=== PATIENT | female | born 1955 | race Caucasian/White ===

== ENCOUNTER 2020-08-17 10:14 | Outpatient (REF) | payer OTHER, SELFPAY ==
--- NOTE | ~2020-08-17 | MM_ITS ---
EXAMINATION: MM SCREENING DIGITAL BREAST TOMOSYNTHESIS, BILATERAL CLINICAL INFORMATION: Screening. Asymptomatic. The lifetime risk of breast cancer based on the Tyrer-Cuzick Model is 8%. COMPARISON: Outside mammography: 03/14/2017 ([facility] TECHNIQUE: Digital breast tomosynthesis is performed in both the craniocaudal and mediolateral oblique views along with computer-aided detection (CAD). Synthesized 2D images are generated from the tomosynthesis. Additional left MLO view is provided. FINDINGS: There are scattered areas of fibroglandular density (ACR BI-RADS breast composition Category b). There are no significant masses, abnormal calcifications, or other abnormalities. There is a clip marker mid upper outer quadrant left breast. The parenchymal pattern is similar to prior outside exam. The axilla and skin contours are unremarkable. No significant changes. MM/MM tomosynthesis screening BI IMPRESSION: No mammographic evidence of malignancy. ASSESSMENT: BI-RADS 1: Negative RECOMMENDATION: Routine annual mammography screening. This patient's information was entered into a reminder system with a target due date for their next mammogram.
== END 2020-08-17 10:15 | disposition home or self-care (01) ==
LOC: HO.MAMMO 10:14
PROVIDERS: PCP Internal Medicine; Visit Provider Internal Medicine
DX: Z12.31 Encounter for screening mammogram for malignant neoplasm of breast (principal)
CPT/HCPCS: 77063; 77067

== ENCOUNTER 2020-12-04 08:58 | Outpatient (REF) | payer BC, SELFPAY ==
[2020-12-04 11:20] LABS: Appearance Urine CLEAR; Color Urine YELLOW; Glucose Urine UA NEG (NEG); Leukocyte Esterase Urine NEG (NEG); Nitrite Urine NEG (NEG); Urine Blood NEG (NEG); Urine Ketones NEG (NEG); Urine Protein NEG (NEG-TRACE)
[2020-12-04 11:34] LABS: RBC Urine 0 /HPF (0); Squamous Epithelial Cell Urine TRACE /LPF; WBC Urine 0-2 /HPF (0-4)
[2020-12-04 11:37] LABS: Hematocrit 42.4 % (37-47); Hemoglobin 14.4 g/dl (12.0-16.0); Mean Corpuscular Hemoglobin 30.1 pg (27.0-33.0); Mean Corpuscular Volume 88.5 fL (80-98); Mean Platelet Volume 11.6 fL (9.4-12.3); Platelet Count 208 X10*3/uL (160-400); Red Blood Count 4.79 X10*6/uL (4.20-5.50); Red Cell Distribution Width 13.2 % (11.0-16.0); White Blood Count 5.7 X10*3/uL (4.8-10.8)
[2020-12-04 12:09] LABS: Alanine Aminotransferase 32 U/L (0-31); Albumin Level 4.1 g/dL (3.5-5.0); Alkaline Phosphatase 81 U/L (39-117); Anion Gap 13 (12-20); Aspartate Amino Transferase 21 U/L (5-31); Bilirubin Total 0.5 mg/dL (0.0-1.0); Blood Urea Nitrogen 15 mg/dL (9-16); Calcium 9.2 mg/dL (8.4-10.2); Carbon Dioxide 22 mmol/L (22-29); Chloride 108 mmol/L (96-108); Cholesterol 247 mg/dL; Estimated Glomerular Filt Rate > 60; Glucose Fasting 106 mg/dL (60-99); HDL Cholesterol 47 mg/dL; LDL Cholesterol Calculated 179 mg/dl; Sodium 139 mmol/L (135-145); Total Protein 6.8 g/dL (6.5-8.0); Triglycerides 108 mg/dL
[2020-12-04 12:14] LABS: TSH reflex Free T4 1.55 uIU/mL (0.32-4.0)
== END 2020-12-04 08:59 | disposition home or self-care (01) ==
LOC: HO.HMGCLDS 08:58
PROVIDERS: PCP Internal Medicine; Visit Provider Internal Medicine
DX: Z00.00 Encounter for general adult medical examination without abnormal findings (principal); F41.9 Anxiety disorder, unspecified
CPT/HCPCS: 36415; 80053; 80061; 81001; 84443; 85027

== ENCOUNTER 2021-09-18 15:43 | Outpatient (REF) | payer BC, SELFPAY ==
--- NOTE | ~2021-09-18 | MM_ITS ---
EXAMINATION: MM SCREENING DIGITAL BREAST TOMOSYNTHESIS, BILATERAL CLINICAL INFORMATION: Screening. Asymptomatic. The lifetime risk of breast cancer based on the Tyrer-Cuzick Model is 7%. COMPARISON: Mammography: 08/17/2020, outside mammography 03/14/2017 ([facility]). TECHNIQUE: Digital breast tomosynthesis is performed in both the craniocaudal and mediolateral oblique views along with computer-aided detection (CAD). Synthesized 2D images are generated from the tomosynthesis. Additional right MLO view is provided. FINDINGS: There are scattered areas of fibroglandular density (ACR BI-RADS breast composition Category b). There are no significant masses, abnormal calcifications, or other abnormalities. There are biopsy clip markers left breast mid upper outer quadrant and anterior 12:00 position, respectively. The axilla are unremarkable. Skin contours are smooth. MM/MM tomosynthesis screening BI IMPRESSION: No mammographic evidence of malignancy. ASSESSMENT: BI-RADS 1: Negative RECOMMENDATION: Routine annual mammography screening. This patient's information was entered into a reminder system with a target due date for their next mammogram.
== END 2021-09-18 15:44 | disposition home or self-care (01) ==
LOC: HO.MAMMO 15:43
PROVIDERS: Visit Provider Internal Medicine
DX: Z12.31 Encounter for screening mammogram for malignant neoplasm of breast (principal)
CPT/HCPCS: 77063; 77067

== ENCOUNTER 2021-10-08 13:09 | Outpatient (REF) | payer BC, SELFPAY ==
[2021-10-08 13:44] LABS: MANUAL DIFF FLAG NO
[2021-10-08 13:58] LABS: Basophils Percent Auto 0.9 % (0-2); Eosinophils Absolute Auto 0.1 X10*3/uL (0.0-0.4); Eosinophils Percent Auto 1.7 % (0-4); Hematocrit 42.7 % (37.0-47.0); Hemoglobin 14.4 g/dl (12.0-16.0); Imm Gran Abs Auto 0.01 X10*3/uL (0.00-0.03); Imm Gran Pct Auto 0.2 % (0.0-0.4); Lymphocytes Percent Auto 43.3 % (20-40); Mean Corpuscular HGB Conc 33.7 g/dl (31.0-35.0); Mean Corpuscular Hemoglobin 29.7 pg (27.0-33.0); Mean Platelet Volume 11.3 fL (9.4-12.3); Monocytes Absolute Auto 0.5 X10*3/uL (0.1-1.2); Monocytes Percent Auto 9.7 % (2-11); Neutrophils Absolute Auto 2.1 x10*3/uL (2.0-8.3); Neutrophils Percent Auto 44.2 % (45-73); Platelet Count 194 X10*3/uL (160-400); Red Blood Count 4.85 X10*6/uL (4.20-5.50); Red Cell Distribution Width 12.9 % (11.0-16.0); White Blood Count 4.6 X10*3/uL (4.8-10.8)
[2021-10-08 14:18] LABS: Alanine Aminotransferase 44 U/L (0-31); Albumin Level 4.3 g/dL (3.5-5.0); Alkaline Phosphatase 83 U/L (39-117); Anion Gap 11 (12-20); Aspartate Amino Transferase 28 U/L (5-31); Bilirubin Total 0.5 mg/dL (0.0-1.0); Blood Urea Nitrogen 12 mg/dL (9-16); Calcium 9.3 mg/dL (8.4-10.2); Carbon Dioxide 27 mmol/L (22-29); Chloride 103 mmol/L (96-108); Cholesterol 275 mg/dL; Estimated Glomerular Filt Rate > 60; Glucose Fasting 106 mg/dL (60-99); HDL Cholesterol 49 mg/dL; LDL Cholesterol Calculated 206 mg/dl; Potassium 4.2 mmol/L (3.3-5.1); Sodium 137 mmol/L (135-145); Total Protein 7.1 g/dL (6.5-8.0); Triglycerides 103 mg/dL
[2021-10-08 14:41] LABS: TSH reflex Free T4 0.98 uIU/mL (0.32-4.0)
[2021-10-08 16:28] LABS: Appearance Urine CLEAR; Color Urine YELLOW; Glucose Urine UA NEG (NEG); Leukocyte Esterase Urine TRACE (NEG); Nitrite Urine NEG (NEG); PH 5.5 (5.0-8.0); Urine Blood NEG (NEG); Urine Ketones NEG (NEG); Urine Protein NEG (NEG-TRACE)
[2021-10-08 16:56] LABS: RBC Urine 0 /HPF (0); Squamous Epithelial Cell Urine TRACE /LPF; WBC Urine 0-2 /HPF (0-4)
[2021-10-10 09:27] LABS: Lyme Abs Screen <0.90 index
== END 2021-10-08 13:10 | disposition home or self-care (01) ==
LOC: HO.HMGCLDS 13:09
PROVIDERS: Visit Provider Internal Medicine
DX: Z00.00 Encounter for general adult medical examination without abnormal findings (principal); R53.83 Other fatigue; R07.9 Chest pain, unspecified; R73.9 Hyperglycemia, unspecified
CPT/HCPCS: 36415; 80053; 80061; 81001; 84443; 85025; 86617; 86618

== ENCOUNTER 2022-08-16 10:17 | Outpatient (REF) | payer BC, SELFPAY ==
[2022-08-16 11:35] LABS: Appearance Urine Clear; Color Urine Yellow; Glucose Urine UA Negative (Negative); Leukocyte Esterase Urine Trace (Negative); Nitrite Urine Negative (Negative); Specific Gravity - Urine 1.015 (1.005-1.025); UMIC TRIGGER UACC YES; Urine Blood Negative (Negative); Urine Ketones Negative (Negative); Urine Protein Negative (Neg-Trace)
[2022-08-16 11:43] LABS: Bacteria Urine None Seen (None Seen); Hyaline Casts Urine 0-2 /LPF (0-2); Squamous Epithelial Cell Urine 0-2 /HPF (0-2); WBC Urine 0-5 /HPF (0-5)
[2022-08-16 12:18] LABS: Alanine Aminotransferase 41 U/L (0-31); Alkaline Phosphatase 75 U/L (39-117); Anion Gap 10 (12-20); Aspartate Amino Transferase 27 U/L (5-31); Bilirubin Total 0.7 mg/dL (0.0-1.0); Blood Urea Nitrogen 13 mg/dL (9-16); Calcium 9.3 mg/dL (8.4-10.2); Carbon Dioxide 25 mmol/L (22-29); Chloride 106 mmol/L (96-108); Cholesterol 156 mg/dL; Estimated Glomerular Filt Rate > 60; Glucose Fasting 119 mg/dL (60-99); HDL Cholesterol 47 mg/dL; LDL Cholesterol Calculated 99 mg/dl; Potassium 4.1 mmol/L (3.3-5.1); Sodium 137 mmol/L (135-145); Total Protein 6.8 g/dL (6.5-8.0); Triglycerides 52 mg/dL
== END 2022-08-16 10:18 | disposition home or self-care (01) ==
LOC: HO.HMGCLDS 10:17
PROVIDERS: PCP Internal Medicine; Visit Provider Internal Medicine
DX: Z00.00 Encounter for general adult medical examination without abnormal findings (principal); E78.5 Hyperlipidemia, unspecified
CPT/HCPCS: 36415; 80053; 80061; 81001

== ENCOUNTER 2022-09-20 08:58 | Outpatient (REF) | payer BC, SELFPAY ==
--- NOTE | ~2022-09-20 | MM_ITS ---
EXAMINATION: MM SCREENING DIGITAL BREAST TOMOSYNTHESIS, BILATERAL CLINICAL INFORMATION: Screening. Asymptomatic. The lifetime risk of breast cancer based on the Tyrer-Cuzick Model is 6.2%. COMPARISON: Mammography: This study is compared with the prior mammograms dating back to 2017. TECHNIQUE: Digital breast tomosynthesis is performed in both the craniocaudal and mediolateral oblique views along with computer-aided detection (CAD). Synthesized 2D images are generated from the tomosynthesis. FINDINGS: There are scattered areas of fibroglandular density (ACR BI-RADS breast composition Category b). There are no significant masses, abnormal calcifications, or other abnormalities. There is tissue marker in the upper outer quadrant of the left breast from prior benign percutaneous biopsy. MM/MM tomosynthesis screening BI IMPRESSION: No mammographic evidence of malignancy. ASSESSMENT: BI-RADS BI-RADS 2 - Benign Findings RECOMMENDATION: Routine annual mammography screening. 1 year F/U This patient's information was entered into a reminder system with a target due date for their next mammogram.
--- NOTE | ~2022-09-20 | MM_ITS ---
EXAMINATION: BONE DENSITOMETRY CLINICAL INDICATION: Menopause. COMPARISON: None (current study represents initial baseline exam). TECHNIQUE: Using a [employer] DXA System (software version: 13.1) manufactured by [employer], dual-energy x-ray absorptiometry was performed of the lumbar spine and left hip. The images are of good technical quality. Summary results are attached. FINDINGS: LEFT FEMUR, NECK: BMD 0.829 g/cm2, Z-score -0.6, T-score -1.5, osteopenia. LEFT FEMUR, TOTAL: BMD 0.957 g/cm2, Z-score 0.2, T-score -0.4, normal. AP SPINE L1-L4: BMD 1.326 g/cm2, Z-score 2.0, T-score 1.2, normal. IDENTIFIED RISK FACTORS: Menopause, height loss, history of fracture (adult). HISTORY OF FRACTURE: Ankle. MEDICATIONS: None listed. MM/XR DEXA axial skeleton IMPRESSION: 1. DIAGNOSIS: Osteopenia based on the lowest T-score value of -1.5 in the femoral neck applying World Health Organization criteria. 2. 10-YEAR FRACTURE RISK PREDICTION, FRAX: Major osteoporotic fracture (clinical spine, forearm, hip or shoulder) 13.3%. Hip fracture 1.4%. 3. Treatment Recommendations: NOF guidelines recommend consideration for treatment in postmenopausal women and men age 50 and older presenting with the following: -A hip or vertebral (clinical or morphometric) fracture. -T-score less than or equal to -2.5 at the femoral neck or spine after appropriate evaluation to exclude secondary causes. -Low bone mass at the hip or spine and a 10-year fracture probability by FRAX of greater than or equal to 3% for hip fracture or greater than or equal to 20% for major osteoporotic fracture based on the [place] adapted WHO algorithm. 4. Other Recommendations: All treatment decisions require clinical judgment and consideration of individual patient factors, including patient preferences, comorbidities, previous drug use, risk factors not captured in the FRAX model (e.g. frailty, falls, vitamin D deficiency, increased bone turnover, interval significant decline in bone density) and possible under or overestimation of fracture risk by FRAX. Additional medical evaluation for secondary cause of low bone mineral density may be appropriate. FUTURE SCAN RECOMMENDATION: People with diagnosed cases of osteoporosis or at high risk for fracture should have regular bone mineral density tests. For patients eligible for Medicare, routine testing is allowed once every 2 years. The testing frequency can be increased to one year for patients who have rapidly progressing disease, those who are receiving or discontinuing medical therapy to restore bone mass, or have additional risk factors.
== END 2022-09-20 08:59 | disposition home or self-care (01) ==
LOC: HO.MAMMO 08:58
PROVIDERS: Visit Provider Internal Medicine
DX: Z12.31 Encounter for screening mammogram for malignant neoplasm of breast (principal); Z13.820 Encounter for screening for osteoporosis; Z78.0 Asymptomatic menopausal state
CPT/HCPCS: 77063; 77067; 77080

== ENCOUNTER → 2022-09-20 09:15 | Outpatient (BNV) | payer BC, SELFPAY | PROVIDERS: Visit Provider Radiology Diagnostic Radiology | DX: Z12.31 Encounter for screening mammogram for malignant neoplasm of breast (principal) | CPT/HCPCS: 77063; 77067 ==

== ENCOUNTER 2022-10-22 08:54 | Outpatient (AMB) | payer BC, SELFPAY ==
--- NOTE | 2022-10-22 09:37 | MHC.PC.OV ---
Vital Signs 10/22/22 09:40 Height 5 ft 1 in Weight 200 lb BMI 37.8 BP 120/72 Blood Pressure Location Rt brachial Position Sitting Pulse 60 Pulse Source Pulse Oximeter Pulse Oximetry (%) 98 Oxygen Delivery Method Room Air Intake Visit Reasons: PE Allergies cat dander [CAT] Allergy (Unknown, Unverified 10/22/22 09:41) ITCHY,SNEEZY Medication List - Last Reconciled 10/22/22 by Dorene Black MD aspirin 81 mg PO DAILY rosuvastatin (Crestor) 5 mg PO DAILY Tobacco use date assessed: 08/22/22 Fall risk assessment: No Falls in past year Last assessed Fall Risk: 10/22/22 HPI PE HPI Details Pt presents for PE. PFSH Medical History (Updated 10/22/22 @ 10:04 by Dorene Black MD) Annual physical exam Anxiety Cervical radiculopathy due to degenerative joint disease of spine Colon polyps Gestational diabetes mellitus Left hand paresthesia Right knee meniscal tear Surgical History (Updated 10/22/22 @ 09:55 by Dorene Black MD) H/O colonoscopy Family History Father Stomach cancer Mother No problems noted. Sister No problems noted. Social History Housing: House Patient Tobacco Use Status: Former Tobacco user Years Smoked: 15 yrs e-Cigarette/Vaping Use: Never Used service: No Current occupational status: employed Cognitive needs: No Hearing needs: No Vision needs: Yes Questionnaire Thrive Questionnaire Date Thrive assessed: 08/22/22 LOLIS-7 AMB Questionnaire LOLIS-7 Date LOLIS - 7 assessed: 08/22/22 Source: Developed by Drs. Viktor Becker, Anne-Marie Dahl, Carlo Woods and colleagues, with an educational radha from [employer]. Review of Systems Const All systems reviewed & are unremarkable except as noted in HPI and below Reports no additional complaints Eyes Reports no additional complaints ENT Reports no additional complaints Card Reports no additional complaints Resp Reports no additional complaints GI Reports no additional complaints Reports no additional complaints Physical exam (Primary Care) Vital Signs: Last Vital Signs Pulse 60 10/22/22 09:40 BP 120/72 10/22/22 09:40 Pulse Ox 98 10/22/22 09:40 Oxygen Delivery Method Room Air 10/22/22 09:40 BMI result Body Mass Index 37.8 Tobacco/Smoking Status: Tobacco use Status Tobacco use date assessed 08/22/22 10/22/22 09:38 Patient Tobacco Use Status Former Tobacco user 10/22/22 09:38 e-Cigarette/Vaping Use Never Used 10/22/22 09:38 Thrive Assessment: Date of Thrive Assessment Date Thrive assessed 08/22/22 10/22/22 09:38 Const General: no acute distress HENMT Head: Yes normal to inspection Ears: hearing grossly normal bilaterally General nose exam: Normal external nose present Face and sinus: Yes normal facial exam Mouth: Normal oral and palatal mucosa present Throat: Yes posterior oropharynx normal Eyes General: appearance normal, both eyes and all related structures Neck Neck: Yes no lymphadenopathy and Yes supple Resp Effort & Inspection: normal respiratory effort Auscultation: clear to auscultation bilaterally Cardio Rhythm: regular rhythm Heart sounds: S1 normal heart sound present and S2 normal heart sound present GI Inspection: Yes normal to inspection Palpation (GI): Soft to palpation Percussion: Yes normal to percussion Auscultation: normal bowel sounds Assessment and Plan Assessment & Plan (1) H/O colonoscopy: Comment: 2 small polyps, repeat in 5 years, 10/13 repeat 7 yrs, Dr. Alvarez Code(s): Z98.890 - Other specified postprocedural states (2) Annual physical exam: Code(s): Z00.00 - Encounter for general adult medical examination without abnormal findings Plan: Well-balanced diet, regular exercise and weight discussed with the patient she is up-to-date with mammogram colonoscopy and a Pap smear (3) Hyperlipidemia: Code(s): E78.5 - Hyperlipidemia, unspecified Plan: Continue Crestor check lipid profile today. Patient follow-up in 6 months with a fasting labs before Orders: Orders Comprehensive [place]. Panel Fast 6 Months E78.5 - Hyperlipidemia, unspecified, Z00.00 - Encounter for general adult medical examination without abnormal findings, Z98.890 - Other specified postprocedural states Lipid Panel 6 Months E78.5 - Hyperlipidemia, unspecified, Z00.00 - Encounter for general adult medical examination without abnormal findings, Z98.890 - Other specified postprocedural states TSH reflex Free T4 6 Months E78.5 - Hyperlipidemia, unspecified, Z00.00 - Encounter for general adult medical examination without abnormal findings, Z98.890 - Other specified postprocedural states Complete Blood Count Auto Diff 6 Months E78.5 - Hyperlipidemia, unspecified, Z00.00 - Encounter for general adult medical examination without abnormal findings, Z98.890 - Other specified postprocedural states UA w Microscopic 6 Months E78.5 - Hyperlipidemia, unspecified, Z00.00 - Encounter for general adult medical examination without abnormal findings, Z98.890 - Other specified postprocedural states Coding Level of Care Code Est Pt Prev Care >65y(71579) Diagnoses H/O colonoscopy Z98.890 Annual physical exam Z00.00 Hyperlipidemia E78.5
[2022-10-22 09:40] VITALS: BP 120/72; PULSE 60; O2SAT 98; BMI 37.8
== END 2022-10-22 10:30 | disposition home or self-care (01) ==
PROVIDERS: Visit Provider Internal Medicine
DX: Z98.890 Other specified postprocedural states (principal); Z00.00 Encounter for general adult medical examination without abnormal findings; E78.5 Hyperlipidemia, unspecified
CPT/HCPCS: 99397

== ENCOUNTER 2022-10-22 10:20 | Outpatient (REF) | payer BC, SELFPAY ==
[2022-10-22 13:52] LABS: Estimated Average Glucose 128 mg/dL; Hemoglobin A1c % 6.1 %
[2022-10-22 14:17] LABS: Alanine Aminotransferase 31 U/L (0-31); Albumin Level 4.1 g/dL (3.5-5.0); Alkaline Phosphatase 81 U/L (39-117); Anion Gap 14 (12-20); Aspartate Amino Transferase 22 U/L (5-31); Bilirubin Total 0.5 mg/dL (0.0-1.0); Blood Urea Nitrogen 13 mg/dL (9-16); Calcium 9.6 mg/dL (8.4-10.2); Carbon Dioxide 23 mmol/L (22-29); Chloride 105 mmol/L (96-108); Cholesterol 183 mg/dL; Estimated Glomerular Filt Rate > 60; Glucose Fasting 117 mg/dL (60-99); HDL Cholesterol 48 mg/dL; LDL Cholesterol Calculated 117 mg/dl; Potassium 3.9 mmol/L (3.3-5.1); Sodium 138 mmol/L (135-145); Total Protein 7.3 g/dL (6.5-8.0); Triglycerides 93 mg/dL
[2022-10-22 14:20] LABS: TSH reflex Free T4 1.54 uIU/mL (0.32-4.0)
[2022-10-22 14:52] LABS: Creatinine Urine 69.24 mg/dL; Microalbum/Creatinine Ratio Ur 21.6 ug/mg cr
== END 2022-10-22 10:21 | disposition home or self-care (01) ==
LOC: HO.HMGCLDS 10:20
PROVIDERS: PCP Internal Medicine; Visit Provider Internal Medicine
DX: E78.5 Hyperlipidemia, unspecified (principal); R73.9 Hyperglycemia, unspecified
CPT/HCPCS: 36415; 80053; 80061; 82043; 83036; 84443

== ENCOUNTER 2023-04-28 08:39 | Outpatient (AMB) | payer BC, SELFPAY ==
--- NOTE | 2023-04-28 08:42 | MHC.PC.OV ---
Vital Signs 04/28/23 08:43 Height 5 ft 1 in Weight 200 lb BMI 37.8 BP 132/66 Blood Pressure Location Rt brachial Position Sitting Pulse 68 Pulse Source Pulse Oximeter Pulse Oximetry (%) 97 Oxygen Delivery Method Room Air Intake Visit Reasons: 6 month follow up Intake Note: Pt is here today for 6 months follow up visit. Allergies cat dander [CAT] Allergy (Unknown, Unverified 04/28/23 08:44) ITCHY,SNEEZY Medication List - Last Reconciled 04/28/23 by Dorene Black MD aspirin 81 mg PO DAILY rosuvastatin (Crestor) 5 mg PO DAILY Tobacco use date assessed: 04/28/23 Fall risk assessment: No Falls in past year Last assessed Fall Risk: 04/28/23 Dental Screening Dental Screen Date: 04/28/23 Did you have a dental visit in the last 12 months?: Yes Did you have a dental problem in the last 6 months where you did not have access to dental care?: No Was dental information given to patient?: Patient has dentist HPI 6 month follow up HPI Details Pt presents for f/u hyperlipid, stable on Crestor. Patient started exercising on the treadmill 2 weeks ago and is hoping to lose weight eating smaller portions. Patient complains of urinary incontinence on and off also at night and needs to wear a pad. She denies dysuria abdominal pain hematuria. Patient complains of general body stiffness, lower back pain worse after sitting for a long time. Patient commutes to [place] 3 times a week spending at least 3 hours every day in the car. [facility] Medical History (Updated 04/28/23 @ 09:16 by Dorene Black MD) Colon polyps Annual physical exam Anxiety Right knee meniscal tear Left hand paresthesia Cervical radiculopathy due to degenerative joint disease of spine Gestational diabetes mellitus Surgical History (Updated 10/22/22 @ 09:55 by Dorene Black MD) H/O colonoscopy Family History Father Stomach cancer Mother No problems noted. Sister No problems noted. Social History Housing: House Patient Tobacco Use Status: Former Tobacco user Years Smoked: 15 yrs e-Cigarette/Vaping Use: Never Used service: No Current occupational status: employed Cognitive needs: No Hearing needs: No Vision needs: Yes Questionnaire PHQ-9 Over the last 2 weeks, how often have you been bothered by any of the following problems? 1. Little interest or pleasure in doing things: not at all 2. Feeling down, depressed, or hopeless: not at all 3. Trouble falling or staying asleep, or sleeping too much: more than half the days 4. Feeling tired or having little energy: nearly every day 5. Poor appetite or overeating: not at all 6. Feeling bad about yourself - or that you are a failure or have let yourself or your family down: several days 7. Trouble concentrating on things, such as reading the newspaper or watching television: not at all 8. Moving or speaking so slowly that other people could have noticed. Or the opposite - being so fidgety or restless that you have been moving around a lot more than usual: not at all 9. Thoughts that you would be better off or of hurting yourself in some way: not at all Total score: 6 Depression Screening Interpretation: Negative Depression Screening Done: Yes Source: Developed by Drs. Viktor Becker, Anne-Marie Dahl, Carlo Woods and colleagues, with an educational radha from [employer]. Thrive Questionnaire Date Thrive assessed: 04/28/23 I am a: Patient What is your living situation today?: I have a steady place to live Within the past 12 months, did the food you bought not last and you didn't have the money to get more?: Never true Within the past 12 months, did you worry whether your food would run out before you got money to buy more?: Never true Do you have trouble paying for medicines?: No Do you have trouble getting transportation to medical appointments?: No Do you have trouble paying your heating and electricity bill?: No Do you have trouble taking care of your child, family member or friend?: No Do you have trouble with day-to-day activities such as bathing, preparing meals, shopping, managing finances, etc.?: No Are you currently unemployed and looking for a job?: No Are you interested in more education?: No Please select the resources that you would like help with: None Currently or been in a relationship where the following occur: no concerns reported THRIVE Score: 0 AUDIT C Alcohol Use Questionnaire (AUDIT-C) 1. How often do you have a drink containing alcohol?: Never 3. How often do you have six or more drinks on one occasion?: Never Total Score: 0 LOLIS-7 AMB Questionnaire LOLIS-7 Date LOLIS - 7 assessed: 04/28/23 Feeling nervous, anxious, or on edge: 0 = Not at all Not being able to stop or control worryin = Not at all Worrying too much about different things: 0 = Not at all Trouble relaxin = Not at all Being so restless that it is hard to sit still: 0 = Not at all Becoming easily annoyed or irritable: 0 = Not at all Feeling afraid as if something awful might happen: 0 = Not at all Total LOLIS-7 score (0-4 normal; 5-9 mild; 10-14 moderate; 15-21 severe): 0 Source: Developed by Drs. Viktor Becker, Anne-Marie Dahl, Carlo Woods and colleagues, with an educational radha from [employer]. Review of Systems Const All systems reviewed & are unremarkable except as noted in HPI and below Reports no additional complaints Eyes Reports no additional complaints ENT Reports no additional complaints Card Reports no additional complaints Resp Reports no additional complaints GI Reports no additional complaints Reports no additional complaints Physical exam (Primary Care) Vital Signs: Last Vital Signs Pulse 68 04/28/23 08:43 BP 132/66 04/28/23 08:43 Pulse Ox 97 04/28/23 08:43 Oxygen Delivery Method Room Air 04/28/23 08:43 BMI result Body Mass Index 37.8 Tobacco/Smoking Status: Tobacco use Status Tobacco use date assessed 04/28/23 04/28/23 08:47 Patient Tobacco Use Status Former Tobacco user 04/28/23 08:47 e-Cigarette/Vaping Use Never Used 04/28/23 08:47 PHQ-9: PHQ-9 Score PHQ-9: Total score 6 04/28/23 08:50 Depression Screening Interpretation: Negative Thrive Assessment: Date of Thrive Assessment Date Thrive assessed 04/28/23 04/28/23 08:50 Currently or been in a relationship where the following occur: no concerns reported Const General: no acute distress HENMT Head: Yes normal to inspection Ears: hearing grossly normal bilaterally General nose exam: Normal external nose present Face and sinus: Yes normal facial exam Mouth: Normal oral and palatal mucosa present Throat: Yes posterior oropharynx normal Eyes General: appearance normal, both eyes and all related structures Neck Neck: Yes no lymphadenopathy and Yes supple Resp Effort & Inspection: normal respiratory effort Auscultation: clear to auscultation bilaterally Cardio Rhythm: regular rhythm Heart sounds: S1 normal heart sound present and S2 normal heart sound present GI Inspection: Yes normal to inspection Palpation (GI): Soft to palpation Percussion: Yes normal to percussion Auscultation: normal bowel sounds Assessment and Plan Assessment & Plan (1) Urinary incontinence: Code(s): R32 - Unspecified urinary incontinence Plan: Check urinalysis renal and bladder ultrasound referred to urogynecologist. Patient will try estrogen vaginal cream twice a week. She was advised to avoid bladder irritants like coffee spicy foods or acidic foods (2) Hyperglycemia: Comment: A1C 6.1 11/13 Code(s): R73.9 - Hyperglycemia, unspecified Plan: Check A1c today continue ADA diet increase physical activity and weight loss discussed (3) Hyperlipidemia: Code(s): E78.5 - Hyperlipidemia, unspecified Plan: Continue crestor Orders: Orders US bladder Today R32 - Unspecified urinary incontinence Hemoglobin A1c 6 Months E78.5 - Hyperlipidemia, unspecified, R73.9 - Hyperglycemia, unspecified, Z00.00 - Encounter for general adult medical examination without abnormal findings Comprehensive [place]. Panel Fast 6 Months E78.5 - Hyperlipidemia, unspecified, R73.9 - Hyperglycemia, unspecified, Z00.00 - Encounter for general adult medical examination without abnormal findings US renal BI Today R32 - Unspecified urinary incontinence Lipid Panel 6 Months E78.5 - Hyperlipidemia, unspecified, R73.9 - Hyperglycemia, unspecified, Z00.00 - Encounter for general adult medical examination without abnormal findings Complete Blood Count Auto Diff 6 Months E78.5 - Hyperlipidemia, unspecified, R73.9 - Hyperglycemia, unspecified, Z00.00 - Encounter for general adult medical examination without abnormal findings Microalbumin, Random (w Creat) 6 Months E78.5 - Hyperlipidemia, unspecified, R73.9 - Hyperglycemia, unspecified, Z00.00 - Encounter for general adult medical examination without abnormal findings Referrals Urogynecology Referral R32 - Unspecified urinary incontinence Medications: New estradiol 0.01%(0.1mg/gram) 1 g vaginal 2XW 42.5 grams 3RF Coding Level of Care Code Est Pt Level 4 (52701) Diagnoses Urinary incontinence R32 Hyperglycemia R73.9 Hyperlipidemia E78.5
[2023-04-28 08:43] VITALS: BP 132/66; PULSE 68; O2SAT 97; BMI 37.8
== END 2023-04-28 09:32 | disposition home or self-care (01) ==
PROVIDERS: PCP Internal Medicine; Visit Provider Internal Medicine
DX: R32 Unspecified urinary incontinence (principal); R73.9 Hyperglycemia, unspecified; E78.5 Hyperlipidemia, unspecified
CPT/HCPCS: 99214

== ENCOUNTER 2023-04-28 09:27 | Outpatient (REF) | payer BC, SELFPAY ==
[2023-04-28 13:05] LABS: Appearance Urine Cloudy; Color Urine Yellow; Glucose Urine UA 100 mg/dL (Negative); Leukocyte Esterase Urine Negative (Negative); Nitrite Urine Negative (Negative); PH 5.5 (5.0-9.0); Specific Gravity - Urine 1.025 (1.005-1.025); Urine Blood Negative (Negative); Urine Ketones Negative (Negative); Urine Protein Negative (Neg-Trace)
[2023-04-28 13:11] LABS: Bacteria Urine None Seen (None Seen); Hyaline Casts Urine 0-2 /LPF (0-2); RBC Urine 0-2 /HPF (0-2); Squamous Epithelial Cell Urine 0-2 /HPF (0-2); WBC Urine 0-5 /HPF (0-5)
[2023-04-28 13:25] LABS: MANUAL DIFF FLAG NO
[2023-04-28 13:30] LABS: Basophils Percent Auto 0.7 % (0-2); Eosinophils Absolute Auto 0.1 X10*3/uL (0.0-0.4); Eosinophils Percent Auto 2.2 % (0-4); Hematocrit 43.3 % (37.0-47.0); Hemoglobin 14.7 g/dl (12.0-16.0); Imm Gran Abs Auto 0.02 X10*3/uL (0.00-0.03); Imm Gran Pct Auto 0.4 % (0.0-0.4); Lymphocytes Absolute Auto 2.1 X10*3/uL (1.2-4.9); Lymphocytes Percent Auto 37.7 % (20-40); Mean Corpuscular HGB Conc 33.9 g/dl (31.0-35.0); Mean Corpuscular Hemoglobin 29.7 pg (27.0-33.0); Mean Corpuscular Volume 87.5 fL (80.0-98.0); Mean Platelet Volume 11.5 fL (9.4-12.3); Monocytes Absolute Auto 0.6 X10*3/uL (0.1-1.2); Monocytes Percent Auto 10.3 % (2-11); Neutrophils Absolute Auto 2.7 x10*3/uL (2.0-8.3); Neutrophils Percent Auto 48.7 % (45-73); Platelet Count 186 X10*3/uL (160-400); Red Blood Count 4.95 X10*6/uL (4.20-5.50); Red Cell Distribution Width 12.7 % (11.0-16.0); White Blood Count 5.5 X10*3/uL (4.8-10.8)
[2023-04-28 13:44] LABS: Estimated Average Glucose 186 mg/dL; Hemoglobin A1c % 8.1 % (<6.0)
[2023-04-28 13:59] LABS: Alanine Aminotransferase 38 U/L (0-31); Alkaline Phosphatase 79 U/L (39-117); Anion Gap 12 (12-20); Aspartate Amino Transferase 24 U/L (5-31); Bilirubin Total 0.5 mg/dL (0.0-1.0); Blood Urea Nitrogen 14 mg/dL (9-16); Calcium 9.2 mg/dL (8.4-10.2); Carbon Dioxide 27 mmol/L (22-29); Chloride 102 mmol/L (96-108); Cholesterol 170 mg/dL (<200); Estimated Glomerular Filt Rate > 60; Glucose Fasting 190 mg/dL (60-99); HDL Cholesterol 49 mg/dL (>40); LDL Cholesterol Calculated 105 mg/dL (<100); Potassium 3.9 mmol/L (3.3-5.1); Sodium 137 mmol/L (135-145); Total Protein 7.1 g/dL (6.5-8.0); Triglycerides 81 mg/dL (<150)
== END 2023-04-28 09:28 | disposition home or self-care (01) ==
LOC: HO.HMGCLDS 09:27
PROVIDERS: PCP Internal Medicine; Visit Provider Internal Medicine
DX: Z00.00 Encounter for general adult medical examination without abnormal findings (principal); R73.9 Hyperglycemia, unspecified; E78.5 Hyperlipidemia, unspecified; Z98.890 Other specified postprocedural states
CPT/HCPCS: 36415; 80053; 80061; 81001; 83036; 84443; 85025

== ENCOUNTER 2023-05-27 14:42 | Outpatient (REF) | payer BC, SELFPAY ==
--- NOTE | ~2023-05-27 | US_ITS ---
EXAMINATION: US RETROPERITONEAL COMPLETE (RENAL) CLINICAL INFORMATION: Unspecified urinary incontinence. COMPARISON: None available. TECHNIQUE: Real-time imaging of the kidneys and bladder. FINDINGS: RIGHT KIDNEY: 12.8 x 4.5 x 6.0 cm (SAG x AP x TRV). The kidney is normal in size, contour, and echogenicity. Renal cortical thickness is normal. No calculi or focal parenchymal lesions. No hydronephrosis. LEFT KIDNEY: 13.1 x 4.9 x 6.2 cm (SAG x AP x TRV). The kidney is normal in size, contour, and echogenicity. Renal cortical thickness is normal. No calculi or focal parenchymal lesions. No hydronephrosis. BLADDER: Well distended and normal. Bilateral ureteral jets are demonstrated. Prevoid bladder volume is 178 mL. Postvoid bladder volume is 3 mL. Partially imaged liver appears echogenic suggestive of hepatic steatosis or underlying liver disease. This could be further characterized with a dedicated right upper quadrant ultrasound if clinically indicated. US/US retroperitoneal comp IMPRESSION: 1. Unremarkable sonographic appearance of the kidneys and bladder. 2. Partially imaged liver appears echogenic suggestive of hepatic steatosis or underlying liver disease. This could be further characterized with a dedicated right upper quadrant ultrasound if clinically indicated.
== END 2023-05-27 14:43 | disposition home or self-care (01) ==
LOC: HO.HMGCX 14:42
PROVIDERS: PCP Internal Medicine; Visit Provider Internal Medicine
DX: R32 Unspecified urinary incontinence (principal)
CPT/HCPCS: 76770

== ENCOUNTER 2023-10-21 10:20 | Outpatient (REF) | payer BC, SELFPAY ==
[2023-10-21 13:31] LABS: MANUAL DIFF FLAG NO
[2023-10-21 13:55] LABS: Creatinine Urine 98.91 mg/dL; Microalbum/Creatinine Ratio Ur 46.5 ug/mg cr (<30)
[2023-10-21 14:09] LABS: Basophils Absolute Auto 0.1 X10*3/uL (0.0-0.2); Basophils Percent Auto 0.9 % (0-2); Eosinophils Absolute Auto 0.1 X10*3/uL (0.0-0.4); Eosinophils Percent Auto 2.5 % (0-4); Hematocrit 41.9 % (37.0-47.0); Hemoglobin 14.4 g/dl (12.0-16.0); Imm Gran Abs Auto 0.02 X10*3/uL (0.00-0.03); Imm Gran Pct Auto 0.4 % (0.0-0.4); Lymphocytes Absolute Auto 1.9 X10*3/uL (1.2-4.9); Lymphocytes Percent Auto 34.7 % (20-40); Mean Corpuscular HGB Conc 34.4 g/dl (31.0-35.0); Mean Corpuscular Hemoglobin 29.9 pg (27.0-33.0); Mean Corpuscular Volume 87.1 fL (80.0-98.0); Mean Platelet Volume 11.7 fL (9.4-12.3); Monocytes Absolute Auto 0.6 X10*3/uL (0.1-1.2); Monocytes Percent Auto 10.6 % (2-11); Neutrophils Absolute Auto 2.8 x10*3/uL (2.0-8.3); Neutrophils Percent Auto 50.9 % (45-73); Platelet Count 205 X10*3/uL (160-400); Red Blood Count 4.81 X10*6/uL (4.20-5.50); Red Cell Distribution Width 12.7 % (11.0-16.0); White Blood Count 5.6 X10*3/uL (4.8-10.8)
[2023-10-21 14:19] LABS: Alanine Aminotransferase 41 U/L (0-31); Albumin Level 4.2 g/dL (3.5-5.0); Alkaline Phosphatase 82 U/L (39-117); Anion Gap 12 (12-20); Aspartate Amino Transferase 25 U/L (5-31); Bilirubin Total 0.4 mg/dL (0.0-1.0); Blood Urea Nitrogen 16 mg/dL (9-16); Calcium 9.9 mg/dL (8.4-10.2); Carbon Dioxide 24 mmol/L (22-29); Chloride 105 mmol/L (96-108); Cholesterol 172 mg/dL (<200); Estimated Glomerular Filt Rate > 60; Glucose Fasting 181 mg/dL (60-99); HDL Cholesterol 49 mg/dL (>40); LDL Cholesterol Calculated 97 mg/dL (<100); Potassium 4.2 mmol/L (3.3-5.1); Sodium 137 mmol/L (135-145); Total Protein 7.2 g/dL (6.5-8.0); Triglycerides 130 mg/dL (<150)
[2023-10-21 14:20] LABS: Estimated Average Glucose 203 mg/dL; Hemoglobin A1c % 8.7 % (<6.0)
== END 2023-10-21 10:21 | disposition home or self-care (01) ==
LOC: HO.HMGCLDS 10:20
PROVIDERS: PCP Internal Medicine; Visit Provider Internal Medicine
DX: Z00.00 Encounter for general adult medical examination without abnormal findings (principal); R73.9 Hyperglycemia, unspecified; E78.5 Hyperlipidemia, unspecified
CPT/HCPCS: 36415; 80053; 80061; 82043; 82570; 83036; 85025

== ENCOUNTER 2023-10-28 08:41 | Outpatient (AMB) | payer BC, SELFPAY ==
[2023-10-28 08:48] VITALS: BP 126/70; PULSE 85; O2SAT 97; BMI 37.0
--- NOTE | 2023-10-28 08:48 | MHC.PC.OV ---
Vital Signs 10/28/23 08:48 Height 5 ft 1 in Weight 196 lb BMI 37.0 BP 126/70 Blood Pressure Location Rt brachial Position Sitting Pulse 85 Pulse Source Pulse Oximeter Pulse Oximetry (%) 97 Oxygen Delivery Method Room Air Intake Visit Reasons: Annual PE Intake Note: Pt is here today for PE. Pt states that she has had couple of vertigo attack and she had one yesterday. Allergies cat dander [CAT] Allergy (Unknown, Unverified 10/28/23 08:51) ITCHY,SNEEZY Medication List - Last Reconciled 10/28/23 by Dorene Black MD ascorbate calcium (vitamin C) 500 mg PO DAILY aspirin 81 mg PO DAILY cholecalciferol (vitamin D3) 25 mcg PO DAILY cinnamon bark (Cinnamon) 500 mg PO DAILY estradiol 0.01%(0.1mg/gram) 1 g vaginal 2XW lancets (OneTouch Delica Plus Lancet) Test blood sugar once a day magnesium chloride PO mecobalamin (vitamin B12) PO OneTouch Verio Flex meter (blood-glucose meter) As directed NS OneTouch Verio test strips (blood sugar diagnostic) test blood sugar once a day NS rosuvastatin (Crestor) 5 mg PO DAILY vitamin E acetate PO Tobacco use date assessed: 10/28/23 Fall risk assessment: No Falls in past year Last assessed Fall Risk: 10/28/23 Dental Screening Dental Screen Date: 10/28/23 Did you have a dental visit in the last 12 months?: Yes Did you have a dental problem in the last 6 months where you did not have access to dental care?: No Was dental information given to patient?: Patient has dentist HPI Annual PE HPI Details Patient [facility] for physical [facility] Medical History Annual physical exam Anxiety Right knee meniscal tear Left hand paresthesia Cervical radiculopathy due to degenerative joint disease of spine Gestational diabetes mellitus Surgical History H/O colonoscopy Family History Father Stomach cancer Mother No problems noted. Sister No problems noted. Social History Housing: House Patient Tobacco Use Status: Former Tobacco user Years Smoked: 15 yrs e-Cigarette/Vaping Use: Never Used service: No Current occupational status: employed Cognitive needs: No Hearing needs: No Vision needs: Yes Questionnaire PHQ-9 Over the last 2 weeks, how often have you been bothered by any of the following problems? 1. Little interest or pleasure in doing things: not at all 2. Feeling down, depressed, or hopeless: not at all 3. Trouble falling or staying asleep, or sleeping too much: not at all 4. Feeling tired or having little energy: nearly every day 5. Poor appetite or overeating: not at all 6. Feeling bad about yourself - or that you are a failure or have let yourself or your family down: not at all 7. Trouble concentrating on things, such as reading the newspaper or watching television: not at all 8. Moving or speaking so slowly that other people could have noticed. Or the opposite - being so fidgety or restless that you have been moving around a lot more than usual: not at all 9. Thoughts that you would be better off or of hurting yourself in some way: not at all Total score: 3 Depression Screening Interpretation: Negative Depression Screening Done: Yes Source: Developed by Drs. Viktor Becker, Anne-Marie Dahl, Carlo Woods and colleagues, with an educational radha from [employer]. Thrive Questionnaire Date Thrive assessed: 10/28/23 I am a: Patient What is your living situation today?: I have a steady place to live Within the past 12 months, did the food you bought not last and you didn't have the money to get more?: Never true Within the past 12 months, did you worry whether your food would run out before you got money to buy more?: Never true Do you have trouble paying for medicines?: No Do you have trouble getting transportation to medical appointments?: No Do you have trouble paying your heating and electricity bill?: No Do you have trouble taking care of your child, family member or friend?: No Do you have trouble with day-to-day activities such as bathing, preparing meals, shopping, managing finances, etc.?: No Are you currently unemployed and looking for a job?: No Are you interested in more education?: No Please select the resources that you would like help with: Care for elder or disabled Currently or been in a relationship where the following occur: No concerns reported THRIVE Score: 0 AUDIT C Alcohol Use Questionnaire (AUDIT-C) 1. How often do you have a drink containing alcohol?: Never 3. How often do you have six or more drinks on one occasion?: Never Total Score: 0 LOLIS-7 AMB Questionnaire LOLIS-7 Date LOLIS - 7 assessed: 10/28/23 Feeling nervous, anxious, or on edge: 2 = More than half the days Not being able to stop or control worryin = More than half the days Worrying too much about different things: 1 = Several days Trouble relaxin = Several days Being so restless that it is hard to sit still: 0 = Not at all Becoming easily annoyed or irritable: 0 = Not at all Feeling afraid as if something awful might happen: 0 = Not at all Total LOLIS-7 score (0-4 normal; 5-9 mild; 10-14 moderate; 15-21 severe): 6 Source: Developed by Drs. Viktor Becker, Anne-Marie Dahl, Carlo Woods and colleagues, with an educational radha from [employer]. Review of Systems Const All systems reviewed & are unremarkable except as noted in HPI and below Reports no additional complaints Eyes Reports no additional complaints ENT Reports no additional complaints Card Reports no additional complaints Resp Reports no additional complaints GI Reports no additional complaints Reports no additional complaints Physical exam (Primary Care) Vital Signs: Last Vital Signs Pulse 85 10/28/23 08:48 BP 126/70 10/28/23 08:48 Pulse Ox 97 10/28/23 08:48 Oxygen Delivery Method Room Air 10/28/23 08:48 BMI result Body Mass Index 37.0 Tobacco/Smoking Status: Tobacco use Status Tobacco use date assessed 10/28/23 10/28/23 08:56 Patient Tobacco Use Status Former Tobacco user 10/28/23 08:56 e-Cigarette/Vaping Use Never Used 10/28/23 08:56 PHQ-9: PHQ-9 Score PHQ-9: Total score 3 10/28/23 10:16 Depression Screening Interpretation: Negative Thrive Assessment: Date of Thrive Assessment Date Thrive assessed 10/28/23 10/28/23 08:57 Currently or been in a relationship where the following occur: No concerns reported Const General: no acute distress HENMT Head: Yes normal to inspection Ears: hearing grossly normal bilaterally General nose exam: Normal external nose present Face and sinus: Yes normal facial exam Throat: Yes posterior oropharynx normal Eyes General: appearance normal, both eyes and all related structures Neck Neck: Yes no lymphadenopathy and Yes supple Resp Effort & Inspection: normal respiratory effort Auscultation: clear to auscultation bilaterally Cardio Rhythm: regular rhythm Heart sounds: S1 normal heart sound present and S2 normal heart sound present GI Inspection: Yes normal to inspection Palpation (GI): Soft to palpation Percussion: Yes normal to percussion Auscultation: normal bowel sounds Assessment and Plan Assessment & Plan (1) DM type 2 (diabetes mellitus, type 2): Code(s): E11.9 - Type 2 diabetes mellitus without complications Plan: A1c is 8.7. ADA diet increase exercise weight loss discussed with the patient. She agreed to try metformin 750 daily and continue to monitor her fasting blood glucose regularly. Patient will be referred to doughnut fryer per her request. (2) H/O colonoscopy: Comment: 2 small polyps, repeat in 5 years, 10/13 repeat 7 yrs, Dr. Alvarez Code(s): Z98.890 - Other specified postprocedural states (3) Hyperlipidemia: Code(s): E78.5 - Hyperlipidemia, unspecified Plan: Continue crestor (4) Annual physical exam: Code(s): Z00.00 - Encounter for general adult medical examination without abnormal findings Plan: Well-balanced diet regular physical activity weight loss discussed with the patient. She is up-to-date with the mammogram DEXA and colonoscopy follow-up in 3 months with a fasting labs before Orders: Orders Comprehensive [place]. Panel Fast 3 Months E11.9 - Type 2 diabetes mellitus without complications Hemoglobin A1c 3 Months E11.9 - Type 2 diabetes mellitus without complications Referrals [facility] Nutrition Referral E11.9 - Type 2 diabetes mellitus without complications Medications: Refilled metformin ER 750 mg PO DAILY 90 tabs 1RF Coding Level of Care Code Est Pt Prev Care >65y(91632) Diagnoses DM type 2 (diabetes mellitus, type 2) E11.9 H/O colonoscopy Z98.890 Hyperlipidemia E78.5 Annual physical exam Z00.00
== END 2023-10-28 11:03 | disposition home or self-care (01) ==
PROVIDERS: Visit Provider Internal Medicine
DX: E11.9 Type 2 diabetes mellitus without complications (principal); Z98.890 Other specified postprocedural states; E78.5 Hyperlipidemia, unspecified; Z00.00 Encounter for general adult medical examination without abnormal findings
CPT/HCPCS: 99397

== ENCOUNTER → 2024-01-20 11:34 | Outpatient (BNVA) | payer BC, SELFPAY | PROVIDERS: PCP Internal Medicine; Visit Provider Dietitian, Registered ==

== ENCOUNTER 2024-02-02 11:44 | Outpatient (REF) | payer MEDICARE, SELFPAY ==
[2024-02-02 13:33] LABS: Estimated Average Glucose 189 mg/dL; Hemoglobin A1C 253.2121 umol/L; Hemoglobin A1c % 8.2 % (<6.0); Total Hemoglobin (HGBA1C) 3798.9392 umol/L
[2024-02-02 14:01] LABS: Alanine Aminotransferase 46 U/L (0-31); Albumin Level 4.1 g/dL (3.5-5.0); Alkaline Phosphatase 79 U/L (39-117); Anion Gap 14 (12-20); Aspartate Amino Transferase 31 U/L (5-31); Bilirubin Total 0.5 mg/dL (0.0-1.0); Blood Urea Nitrogen 13 mg/dL (9-16); Calcium 9.4 mg/dL (8.4-10.2); Carbon Dioxide 22 mmol/L (22-29); Chloride 104 mmol/L (96-108); Estimated Glomerular Filt Rate > 60; Glucose Fasting 190 mg/dL (60-99); Potassium 4.1 mmol/L (3.3-5.1); Sodium 136 mmol/L (135-145); Total Protein 7.2 g/dL (6.5-8.0)
== END 2024-02-02 11:45 | disposition home or self-care (01) ==
LOC: HO.HMGCLDS 11:44
PROVIDERS: PCP Internal Medicine; Visit Provider Internal Medicine
DX: E11.9 Type 2 diabetes mellitus without complications (principal)
CPT/HCPCS: 36415; 80053; 83036

== ENCOUNTER 2024-02-04 10:08 | Outpatient (REF) | payer MEDICARE, SELFPAY ==
[2024-02-04 13:14] LABS: Appearance Urine Clear; Color Urine Yellow; Glucose Urine UA Negative (Negative); Leukocyte Esterase Urine Negative (Negative); Nitrite Urine Negative (Negative); PH 6.5 (5.0-9.0); Specific Gravity - Urine 1.015 (1.005-1.025); Urine Blood Negative (Negative); Urine Ketones Negative (Negative); Urine Protein Trace mg/dL (Neg-Trace)
[2024-02-04 13:21] LABS: Bacteria Urine None Seen (None Seen); Hyaline Casts Urine 0-2 /LPF (0-2); RBC Urine 0-2 /HPF (0-2); Squamous Epithelial Cell Urine 0-2 /HPF (0-2); WBC Urine 0-5 /HPF (0-5)
== END 2024-02-04 10:09 | disposition home or self-care (01) ==
LOC: HO.HMGCLDS 10:08
PROVIDERS: PCP Internal Medicine; Visit Provider Internal Medicine
DX: E11.9 Type 2 diabetes mellitus without complications (principal); R35.0 Frequency of micturition; E78.5 Hyperlipidemia, unspecified
CPT/HCPCS: 81001; 99212

== ENCOUNTER 2024-02-04 10:08 | Outpatient (AMB) | payer MEDICARE, SELFPAY ==
--- NOTE | 2024-02-04 10:10 | A.OFFPC_ITS ---
Vital Signs 02/04/24 10:11 Height 5 ft 1 in Weight 198 lb BMI 37.4 BP 136/80 Blood Pressure Location Lt brachial Position Sitting Pulse 68 Pulse Source Pulse Oximeter Pulse Oximetry (%) 97 Oxygen Delivery Method Room Air Intake Visit Reasons: 3m f/u Intake Note: Pt is here today for 3 months follow up visit on labs. Allergies cat dander [CAT] Allergy (Unknown, Unverified 02/04/24 10:14) ITCHY,SNEEZY Medication List - Last Reconciled 02/04/24 by Dorene Black MD ascorbate calcium (vitamin C) 500 mg PO DAILY aspirin 81 mg PO DAILY cholecalciferol (vitamin D3) 25 mcg PO DAILY cinnamon bark (Cinnamon) 500 mg PO DAILY estradiol 0.01%(0.1mg/gram) 1 g vaginal 2XW lancets (OneTouch Delica Plus Lancet) Test blood sugar once a day magnesium chloride PO mecobalamin (vitamin B12) PO metformin ER 1,500 mg (2 x 750 mg) PO DAILY OneTouch Verio Flex meter (blood-glucose meter) As directed NS OneTouch Verio test strips (blood sugar diagnostic) test blood sugar once a day NS rosuvastatin (Crestor) 5 mg PO DAILY vitamin E acetate PO Tobacco use date assessed: 02/04/24 Dental Screening Dental Screen Date: 10/28/23 HPI 3m f/u HPI Details Pt presents for f/u DM 2, hyperlipid. Pt reports improving fasting glucose 140-160 but still elevated. Pt c/o urinary incontinence worse at night. Patient denies dysuria but reports increased urinary frequency getting worse over last 2 months. [facility] Medical History Annual physical exam Anxiety Right knee meniscal tear Left hand paresthesia Cervical radiculopathy due to degenerative joint disease of spine Gestational diabetes mellitus Surgical History H/O colonoscopy Family History Father Stomach cancer Mother No problems noted. Sister No problems noted. Social History Housing: House Patient Tobacco Use Status: Former Tobacco user Years Smoked: 15 yrs e-Cigarette/Vaping Use: Never Used service: No Current occupational status: employed Cognitive needs: No Hearing needs: No Vision needs: Yes Questionnaire Thrive Questionnaire Date Thrive assessed: 10/28/23 I am a: Patient What is your living situation today?: I have a steady place to live Within the past 12 months, did the food you bought not last and you didn't have the money to get more?: Never true Within the past 12 months, did you worry whether your food would run out before you got money to buy more?: Never true Do you have trouble paying for medicines?: No Do you have trouble getting transportation to medical appointments?: No Do you have trouble paying your heating and electricity bill?: No Do you have trouble taking care of your child, family member or friend?: No Do you have trouble with day-to-day activities such as bathing, preparing meals, shopping, managing finances, etc.?: No Are you currently unemployed and looking for a job?: No Are you interested in more education?: No Please select the resources that you would like help with: Care for elder or disabled Currently or been in a relationship where the following occur: No concerns reported THRIVE Score: 0 LOLIS-7 AMB Questionnaire LOLIS-7 Date LOLIS - 7 assessed: 10/28/23 Source: Developed by Drs. Viktor Becker, Anne-Marie Dahl, Carlo Woods and colleagues, with an educational radha from [employer]. Review of Systems Const All systems reviewed & are unremarkable except as noted in HPI and below Eyes Reports no additional complaints ENT Reports no additional complaints Card Reports no additional complaints Resp Reports no additional complaints GI Reports no additional complaints Reports no additional complaints Physical exam (Primary Care) Vital Signs: Last Vital Signs Pulse 68 02/04/24 10:11 BP 136/80 02/04/24 10:11 Pulse Ox 97 02/04/24 10:11 Oxygen Delivery Method Room Air 02/04/24 10:11 BMI result Body Mass Index 37.4 Tobacco/Smoking Status: Tobacco use Status Tobacco use date assessed 02/04/24 02/04/24 10:16 Patient Tobacco Use Status Former Tobacco user 02/04/24 10:10 e-Cigarette/Vaping Use Never Used 02/04/24 10:10 Thrive Assessment: Date of Thrive Assessment Date Thrive assessed 10/28/23 02/04/24 10:10 Currently or been in a relationship where the following occur: No concerns reported Const General: no acute distress HENMT Throat: Yes posterior oropharynx normal Neck Neck: Yes supple Resp Effort & Inspection: normal respiratory effort Auscultation: clear to auscultation bilaterally Cardio Rhythm: regular rhythm Heart sounds: S1 normal heart sound present and S2 normal heart sound present GI Inspection: Yes normal to inspection Percussion: Yes normal to percussion Auscultation: normal bowel sounds Coding Level of Care Code Est Pt Level 4 (62385) Diagnoses DM type 2 (diabetes mellitus, type 2) E11.9 Hyperlipidemia E78.5 Increased frequency of urination R35.0 Assessment & Plan Assessment & Plan (1) DM type 2 (diabetes mellitus, type 2): Code(s): E11.9 - Type 2 diabetes mellitus without complications Category: Medical Plan: A1c is 8.2. ADA diet increase physical activity weight loss discussed with the patient she will increase metformin to 1500 mg daily. Patient will follow-up with nurse navigator for ADA diet and will continue to monitor her fasting blood glucose. If the fasting glucose still elevated after 6 weeks of taking double dose of metformin GLP 1 agonist will be tried (2) Hyperlipidemia: Code(s): E78.5 - Hyperlipidemia, unspecified Category: Medical Plan: Continue Crestor (3) Increased frequency of urination: Code(s): R35.0 - Frequency of micturition Category: Medical Plan: Check UA and try Myrbetriq 50 mg daily. Patient was advised to do Kegel exercises and walk regularly to strengthen the pelvic floor muscles. Follow-up in 3 months with a fasting labs before Orders: Orders Microalbumin, Random (w Creat) 3 Months E11.9 - Type 2 diabetes mellitus without complications, E78.5 - Hyperlipidemia, unspecified, R73.9 - Hyperglycemia, unspecified UA w Microscopic Today R35.0 - Frequency of micturition Comprehensive [place]. Panel Fast 3 Months E11.9 - Type 2 diabetes mellitus without complications, E78.5 - Hyperlipidemia, unspecified, R73.9 - Hyperglycemia, unspecified Complete Blood Count Auto Diff 3 Months E11.9 - Type 2 diabetes mellitus without complications, E78.5 - Hyperlipidemia, unspecified, R73.9 - Hyperglycemia, unspecified Hemoglobin A1c 3 Months E11.9 - Type 2 diabetes mellitus without complications, E78.5 - Hyperlipidemia, unspecified, R73.9 - Hyperglycemia, unspecified Lipid Panel 3 Months E11.9 - Type 2 diabetes mellitus without complications, E78.5 - Hyperlipidemia, unspecified, R73.9 - Hyperglycemia, unspecified Referrals Nurse Navigator Referral E11.9 - Type 2 diabetes mellitus without complications Medications: New Myrbetriq ER (mirabegron) 50 mg PO DAILY 30 tabs 1RF NS Changed From metformin ER 750 mg PO DAILY 90 tabs 1RF To metformin ER 1,500 mg (2 x 750 mg) PO DAILY 180 tabs 1RF
[2024-02-04 10:11] VITALS: BP 136/80; PULSE 68; O2SAT 97; BMI 37.4
== END 2024-02-04 11:02 | disposition home or self-care (01) ==
PROVIDERS: PCP Internal Medicine; Visit Provider Internal Medicine
DX: E11.9 Type 2 diabetes mellitus without complications (principal); E78.5 Hyperlipidemia, unspecified; R35.0 Frequency of micturition

== ENCOUNTER 2024-03-19 14:58 | Outpatient (REF) | payer MEDICARE, SELFPAY | END 2024-03-19 14:59 | disposition home or self-care (01) | LOC: HO.MAMMO 14:58 | PROVIDERS: PCP Internal Medicine; Visit Provider Internal Medicine | DX: Z12.31 Encounter for screening mammogram for malignant neoplasm of breast (principal) | CPT/HCPCS: 77063; 77067 ==

== ENCOUNTER → 2024-03-19 15:00 | Outpatient (BNV) | payer MEDICARE, SELFPAY | PROVIDERS: PCP Internal Medicine; Visit Provider Internal Medicine | DX: Z12.31 Encounter for screening mammogram for malignant neoplasm of breast (principal) | CPT/HCPCS: 77063; 77067 ==

== ENCOUNTER → 2024-04-28 08:39 | Outpatient (BNVA) | payer MEDICARE, SELFPAY | PROVIDERS: PCP Internal Medicine; Visit Provider Dietitian, Registered | DX: E11.9 Type 2 diabetes mellitus without complications (principal) | CPT/HCPCS: 97802 ==

== ENCOUNTER 2024-05-18 09:11 | Outpatient (REF) | payer MEDICARE, SELFPAY ==
--- OUTSIDE RECORDS SUMMARY | 2024-05-18 10:03 | XMS_ITS | Data Portability ---
Author Organization [facility], [address] Address [address] [place] [address] Assessment No assessment recorded. Plan of Treatment Reminders Order Date Submit Date Provider Last Modified By Organization Details Last Modified Time Details Appointments None recorded. Lab urinalysis, dipstick 2022 023 [email or web address] [facility] [address], [address] [place], [address], 15:13:27 culture, urine 2022 023 [place] [facility], [address] [place] [address], [place], [address], 06:07:26 Referral None recorded. Procedures None recorded. Surgeries None recorded. Imaging None recorded. Medication Orders meloxicam 7.5 mg tablet 2022 023 [place] [id number], [phone] [place], [address], 3 15:13:29 cefuroxime axetil 500 mg tablet 2022 023 [email or web address] [id number], [phone] [place], [address], 3 22:32:41 Patient TargetsNo targets recorded. Patient Instructions Encounter Date Encounter Id Patient Instructions Last Modified By Organization Details Last Modified Time 04/15/2022 [id number] sacroiliac pain: exercises [email or web address] Not available 04/15/2022 15:13:26 sacroiliac joint pain: care instructions [email or web address] Not available 04/15/2022 15:13:26 Urge Incontinenc e: Care Instructions [email or web address] Not available 04/15/2022 15:13:26 You are going to be treated for a potential UTI. The following are recommendations to help with your symptoms and recovery: 1. Drink Plenty of fluids - Stay hydrated 2. Finish full antibiotic course 3. I recommend starting a Probiotic - I recommend Florastor 4. If you take Azo - this will help the burning and urgency feeling - just be aware it will turn your urine bright yellow. I would not hesitate to be seen again if you develop: 1. Severe Back Pain 2. Abdominal Pain 3. Nausea and Vomiting 4. Vaginal Discharge or Bleeding 5. Fever > 101.0 You symptoms should improve within 72 hours for a typically UTI. If a urine culture was sent out to the lab for you we should get the results back within 4 days. This will be able to prove that your symptoms are caused by a UTI and it will also verify that the correct antibiotic was prescribed. Thank you for using [facility] - please don't hesistate to call our office if you have any questions or concerns. [email or web address] Not available 04/15/2022 15:14:30 Reason for Referral None Reported. Results Created Date Observation Date Name Description Value Unit Range Abnormal Flag Note LastModifiedBy Organization Detail LastModifiedTime 04/15/1904/17/2022 URINE CULTU RE, GEOFFI NE urine culture, routine FINAL REPORT Not Available [facility] ([facility]) [address] [facility], [place], [address], 04/17/2022 06:07:26 04/15/1904/17/2022 URINE CULTU RE, GEOFFI NE result 1 NO GROWTH Not Available [facility] ([facility]) [address] [facility], [place], [address], 04/17/2022 06:07:26 04/15/1904/15/2022 urina lysis , dipst ick Unknown Analyte Normal = light yellow Not Available [address] [place], [address], 04/15/2022 13:55:58 04/15/1904/15/2022 urina lysis , dipst ick Unknown Analyte Yellow Not Available [address] [facility] [address] [place], [address], 04/15/2022 13:55:58 04/15/1904/15/2022 urina lysis , dipst ick Unknown Analyte Normal = clear Not Available [address] [place], [address], 04/15/2022 13:55:58 04/15/1904/15/2022 urina lysis , dipst ick Unknown Analyte Clear Not Available [address] [place] [address] [address] [place], [address], 04/15/2022 13:55:58 04/15/1904/15/2022 urina lysis , dipst ick Unknown Analyte Normal = negati ve Not Available [address] [place], [address], 04/15/2022 13:55:58 04/15/1904/15/2022 urina lysis , dipst ick Unknown Analyte Negati ve Not Available [address] [place], [address], 04/15/2022 13:55:58 04/15/1904/15/2022 urina lysis , dipst ick Unknown Analyte Normal = Negati ve Not Available [address] [place], [address], 04/15/2022 13:55:58 04/15/1904/15/2022 urina lysis , dipst ick Unknown Analyte Negati ve Not Available [address] [place], [address], 04/15/2022 13:55:58 04/15/1904/15/2022 urina lysis , dipst ick Unknown Analyte Normal = Negati ve Not Available [address] [place], [address], 04/15/2022 13:55:58 04/15/1904/15/2022 urina lysis , dipst ick Unknown Analyte Negati ve Not Available [address] [place], [address], 04/15/2022 13:55:58 04/15/1904/15/2022 urina lysis , dipst ick Unknown Analyte Normal = 1.010, 1.015, 1.020 Not Available [facility] [address] [place], [address], 04/15/2022 13:55:58 04/15/1904/15/2022 urina lysis , dipst ick Unknown Analyte 1.015 Not Available [address] [place] [address] [address] [place], [address], 04/15/2022 13:55:58 04/15/1904/15/2022 urina lysis , dipst ick Unknown Analyte Normal = Negati ve Not Available [address] [place], [address], 04/15/2022 13:55:58 04/15/1904/15/2022 urina lysis , dipst ick Unknown Analyte Trace- intact Not Available [address] [place], [address], 04/15/2022 13:55:58 04/15/1904/15/2022 urina lysis , dipst ick Unknown Analyte Normal = 6.5, 7.0, 7.5, 8.0 Not Available [address] [place], [address], 04/15/2022 13:55:58 04/15/1904/15/2022 urina lysis , dipst ick Unknown Analyte 5.0 Not Available [facility] [address] [place], [address], 04/15/2022 13:55:58 04/15/1904/15/2022 urina lysis , dipst ick Unknown Analyte Normal = Negati ve Not Available [address] [place], [address], 04/15/2022 13:55:58 04/15/1904/15/2022 urina lysis , dipst ick Unknown Analyte Negati ve Not Available [address] [place], [address], 04/15/2022 13:55:58 04/15/1904/15/2022 urina lysis , dipst ick Unknown Analyte Normal = 0.2, 1.0 Not Available [address] [place], [address], 04/15/2022 13:55:58 04/15/1904/15/2022 urina lysis , dipst ick Unknown Analyte 0.2 E.U./d L Not Available [address] [place], [address], 04/15/2022 13:55:58 04/15/1904/15/2022 urina lysis , dipst ick Unknown Analyte Normal = Negati ve Not Available [address] [place], [address], 04/15/2022 13:55:58 04/15/1904/15/2022 urina lysis , dipst ick Unknown Analyte Negati ve Not Available [address] [place], [address], 04/15/2022 13:55:58 04/15/1904/15/2022 urina lysis , dipst ick Unknown Analyte Normal = Negati ve Not Available [address] [place], [address], 04/15/2022 13:55:58 04/15/1904/15/2022 urina lysis , dipst ick Unknown Analyte Negati ve Not Available [address] [place], [address], 04/15/2022 13:55:58 Result Notes None recorded. Problems Name Problem SNOMED Code Status Onset Date Resolution Date Notes Provider Name and Address Organization Details Recorded Time Hyperlipidemia 58682167 Active 2022 KIM Manjarrez - [facility] 13:54:39 Problem Notes None recorded. Medical Equipment None Reported. Medications Name Sig Start Date Stop Date Status Note LastModified by Organization Details LastModified Time ketorolac 0.5 % eye drops PLACE 1 DROP INTO SURGICAL EYE(S) FOUR TIMES DAILY, START 3 DAYS PRIOR TO SURGERY active Not Available Not Available N ot Available meloxicam 7.5 mg tablet Take 1 tablet every day by oral route. 2022 active Not Available Not Available Not Avai lable prednisolone acetate 1 % eye drops,suspen geetha PLACE 1 DROP INTO SURGICAL EYE(S) FOUR TIMES DAILY, STARTING AFTER SURGERY active Not Available Not Available No t Available cefuroxime axetil 500 mg tablet Take 1 tablet twice a day by oral route. 2022 active Not Available Not Available Not Avai lable rosuvastatin 5 mg tablet TAKE 1 TABLET BY MOUTH EVERY DAY active Not Available Not Available No t Available Co Q-10 300 mg capsule Take by oral route. active Not Available Not Available Not Available bromfenac 0.09 % eye drops PLACE 1 DROP INTO THE LEFT EYE 2 (TWO) TIMES A DAY. START 3 DAYS PRE-OP active Not Available Not Available No t Available aspirin active Not Available Not Avail able Not Available rosuvastatin active Not Available Not Available Not Available GaviLyte-G 236 gram-22.74 gram-6.74 gram-5.86 gram oral solution TAKE 8 OUNCE BY MOUTH DIRECTED FOLLOW INSTRUCTION S PROVIDED BY OFFICE active Not Available Not Available No t Available gatifloxacin 0.5 % eye drops PLACE 1 DROP INTO SURGICAL EYE(S) FOUR TIMES DAILY, START 3 DAYS PRIOR TO SURGERY active Not Available Not Available N ot Available OneTouch Verio test strips USE TO TEST BLOOD SUGAR ONCE A DAY active Not Available Not Available N ot Available OneTouch Verio Flex Meter USE DIRECTED active Not Available Not Available No t Available OneTouch Delica Plus Lancet 33 gauge USE TO TEST BLOOD SUGAR ONCE A DAY active Not Available Not Available N ot Available Vitals Date Recorded Body height Body mass index (BMI) Body weight Body temperature Respiratory rate Heart rate Oxygen saturation Oxygen saturation in Arterial blood by Pulse oximetry Pain severity - 0-10 verbal numeric rating [Score] - Reported Systolic blood pressure Diastolic blood pressure Provider Name and Address Organization Details Last Updated DateTime 4 152.4 cm 38.7 kg/m2 05487.2 9 g 98.5 [degF] 20 /min 68 /min 98 % 98 % 1 147 mm[Hg] 82 mm[Hg] Jazmyne Ramirez [place] - [facility] 4 15:27:59 Date Recorded Body height Body mass index (BMI) Body weight Body temperature Heart rate Respiratory rate Oxygen saturation Oxygen saturation in Arterial blood by Pulse oximetry Systolic blood pressure Diastolic blood pressure Provider Name and Address Organization Details Last Updated DateTime 3 152.4 cm 37.3 kg/m2 74721.1 4 g 98.3 [degF] 71 /min 18 /min 98 % 98 % 154 mm[Hg] 94 mm[Hg] Rasheeda Ortiz [place] - [facility] 3 13:52:27 Date Recorded Systolic blood pressure Diastolic blood pressure Provider Name and Address Organization Details Last Updated DateTime 04/15/2022 146 mm[Hg] 76 mm[Hg] KIM SOLORZANO [address] [place], [address], [place] - [facility] 04/15/2022 15:14:46 Social History Question Answer Notes LastModified by Organizat ion Details LastModified Time Tobacco Smoking Status Former Smoker Jazmyne Ramirez KIM cuello [facility] 07/27/2023 15:29:35 What Is Your Level Of Alcohol Consumption? None Information not available 07/27/2023 When Did You Quit Smoking? 16+yearssinc elastcigaret te Information not available 07/27/2023 Have You Had Direct Contact, Or Contact During Intimacy, With Monkeypox Rash, Scabs, Or Body Fluids From A Person With Monkeypox? No Information not available 07/27/2023 What Was The Date Of Your Most Recent Tobacco Screening? 07/27/2023 Information not available 07/27/2023 What Is Your Current Pack Years? 10packyears Information not available 07/27/2023 What Is Your Relationship Status? Information not available 07/27/2023 How Much Tobacco Do You Smoke? 1 PPW Information not available 07/27/2023 Do You Use Any Illicit Or Recreational Drugs? No [email or web address] Information not available 04/15/2022 Have You Recently Traveled Abroad? No [email or web address] Information not available 04/15/2022 Do You Or Have You Ever Used Any Other Forms Of Tobacco Or Nicotine? No Information not available 04/15/2022 Sex: Unknown Functional Status None recorded. Mental Status None recorded. Family History Relationship Description Onset Age of this Age Resolved Age Notes LastModified by Organization Details LastModified Time Father No current problems or disability [email or web address] Not available 03/25 13:55:09 Mother No current problems or disability [email or web address] Not available 03/25 13:55:09 Medical History No medical history recorded. Gynecological History Statement/Question Response Is there any chance of ? No Obstetrics History GPAL:G 0 P 0 0 0 0 Immunizations Vaccine Type Date Status Note Provider Nam e and Address Organization Details Recorded Time Influenza, split virus, quadrivalent, preservative 9 completed Jazmyne James null, [place] - [facility] 07/27/2023 15:28:29 Influenza, MDCK, quadrivalent, PF 2 completed Jazmyne James null, [place] - [facility] 07/27/2023 15:28:29 COVID-19, mRNA, LNP-S, PF, 100 mcg/0.5mL dose or 50 mcg/0.25mL dose 1 completed Jazmyne James null, [place] - [facility] 07/27/2023 15:28:29 COVID-19, mRNA, LNP-S, PF, 100 mcg/0.5mL dose or 50 mcg/0.25mL dose 2 completed Jazmyne James null, [place] - [facility] 07/27/2023 15:28:29 COVID-19, mRNA, LNP-S, PF, 100 mcg/0.5mL dose or 50 mcg/0.25mL dose 1 completed Jazmyne James null, [place] - [facility] 07/27/2023 15:28:29 COVID-19, mRNA, LNP-S, bivalent, PF, 50 mcg/0.5 mL or 25mcg/0.25 mL dose 2 completed Jazmyne James null, [place] - [facility] 07/27/2023 15:28:29 Tdap 8 completed Jazmyne James null, [place] - [facility] 07/27/2023 15:28:29 Influenza, split virus, quadrivalent, PF 1 completed Jazmyne James null, [place] - [facility] 07/27/2023 15:28:29 Past Encounters Encounter ID Performer Location Encounter Start Date Encounter Closed Date Diagnosis/Indication Diagnosis SNOMED-CT Code Diagnosis ICD10 Code Diagnosis Note [id number] [address] [address] 02/02/2020 17:17:40 02/02/2020 19:32:47 [id number] [address] [facility], [place] [address] 03/05/2021 13:04:26 03/05/2021 15:16:50 [id number] [address] [facility], [place] [address] 06/16/2020 08:07:09 06/16/2020 08:38:19 [id number] [address] [facility] [place] [address] 03/26/2021 17:41:19 03/26/2021 18:07:16 [id number] [address] [facility] [place] [address] 08/26/2020 16:53:42 08/26/2020 18:58:42 [id number] [address] [place] [address] 06/13/2020 12:47:13 06/13/2020 13:30:15 [id number] [address] [facility] [place] [address] 07/27/2020 08:49:35 07/27/2020 11:19:22 [id number] KIM SOLORZANO [address] [facility] [place] [address] 04/15/2022 12:52:06 04/15/2022 15:14:55 Inflammation of sacroiliac joint 61792727 M46.1 Urgent conrad ajay to urinate 21394896 R39.15 Dental abscess 962952230 K04.7 [id number] KIM Luna [address] [facility] [place] [address] 07/27/2023 15:21:02 07/27/2023 15:35:00 Hordeolum externum of lower eyelid of left eye 9477382795 21921 H00.025 Based on your presentati on and exam - you are being diagnosed with a Stye This is a clogged gland in the eyelid. This will resolve over time. The following are my recommenda tions to help with your symptoms and this diagnosis: 1. Do not rub your eyes this can cause it to spread or damage the cornea of your eye.2. Do not wear contacts for at least 1 week if you have contacts.4 . No makeup5. You can take Ibuprofen or Tylenol for discomfort if you are not allergic to them.6. If you get lubricatin g eye drops and put them in the refrigerat or - this can help with itching and discomfort .7. Get an old sock and fill it with a cup of rice - put it in the microwave for a few second and apply it to the eyelid. Do this as frequently as possible - but make sure you don't make it too hot because it could cause a burn if it is too hot - you want it to just be warm.8. Get Baby Wash/Soap and clean eyelashes with a Q-tip everyday. This will help with the itching and irritation . You should be seen again if you develop any of the following symptoms1. Eye pain or pressure behind the eye.2. Redness or significan t swelling of the eyelid or around the eye3. Headache4. Fever > 100.55. No improvemen t in current symptoms in the next 1 week.6. Increased swelling of the eye lid that lasts longer than 2 weeks. Thank you for using [facility] today, please feel free to contact us with any questions or concerns. Health Concerns Section Related Observation LastModified by Organization Detai ls LastModified Time None Recorded Concern Status LastModified by Organization Details LastModified Time None Recorded Advance Directives Directive None Recorded Payers Encounter Date Sequence Insurance Name Policy Number Policy Winslow Covered Member ID [place] Member ID Guarantor Name 03/05/2021 1 [place] [facility] [id number] Cas T Malcolm [id number] Francesca Malcolm 03/26/2021 1 [place] [facility] [place] [id number] Cas T Malcolm [id number] Francesca Malcolm 04/15/2022 1 [place] [facility] [place] [id number] Cas T Malcolm [id number] Francesca Malcolm 07/27/2023 1 [place] [facility] [place] [id number] Cas Malcolm [id number] Francesca Malcolm Notes Date Note Type Note Provider Name and Address Organization Details Recorded Time 3 text/html Urinary Complaint FemaleReported bypatient.source of patient informationInformation obtained from patient; Patient arrived at Urgent Care ambulatory UTI Symptoms:no blood in the urine; no pain during urination; no vaginal discharge; no fever/chills; no recurrent UTI;urgency;urinary frequency;flank pain Severity:moderate Duration:3 daysNotes:The patient reports that she has had severe facial pain for the last several days. She believes that she had a dental infection and went to the dentist today. The dentist confirmed a tooth abscess in the right side of her mouth that is best treated with an extraction. She is set up with an oral surgeon evaluation tomorrow. Because she knew she was going to the dentist she contacted her orthopedist who is treating her with prophylactic Amoxicillin because she had a knee replacement on the right side. She state sthat she has also been having lower back pain that radiates across her back she presents because she thinks that she might have a kidney infection. The patient has ongoing frequency and urgency and as suppose to see a urologist but had to cancel that appointment. She wanted to make sure that she wasn't developing a kidney infection. Denies any buring with urination or blood. no history of kidney stone. Also reports that over the weekend she had a bad case of vertigo. This is known diagnosis for her and it has resolved. She is wondering if her back pain has any correlation. She denies any trauma to her back. The patient states that she has been under a lot of stress because her is pending an bypass surgery. ]KIM Cage [address] [place], [address], [place] - [facility] 04/15/2022 22:49:31 4 text/html 68 y/o female here with L lower eyelid swelling starting yesterday. A little tender, no eye pain or drainage KIM Luna [address] [place], [address], [place] - [facility] 07/27/2023 15:35:21 OBGyn Episode No OBEpisode recorded.
[2024-05-18 13:24] LABS: MANUAL DIFF FLAG NO
[2024-05-18 13:39] LABS: Basophils Absolute Auto 0.1 X10*3/uL (0.0-0.2); Basophils Percent Auto 0.9 % (0-2); Eosinophils Absolute Auto 0.2 X10*3/uL (0.0-0.4); Hemoglobin 14.1 g/dl (12.0-16.0); Imm Gran Abs Auto 0.04 X10*3/uL (0.00-0.03); Imm Gran Pct Auto 0.5 % (0.0-0.4); Lymphocytes Percent Auto 25.3 % (20-40); Mean Corpuscular HGB Conc 33.6 g/dl (31.0-35.0); Mean Corpuscular Hemoglobin 29.8 pg (27.0-33.0); Mean Corpuscular Volume 88.8 fL (80.0-98.0); Mean Platelet Volume 11.5 fL (9.4-12.3); Monocytes Absolute Auto 0.7 X10*3/uL (0.1-1.2); Neutrophils Percent Auto 62.3 % (45-73); Platelet Count 205 X10*3/uL (160-400); Red Blood Count 4.73 X10*6/uL (4.20-5.50); Red Cell Distribution Width 13.1 % (11.0-16.0)
[2024-05-18 13:44] LABS: Creatinine Urine 161.85 mg/dL; Microalbum/Creatinine Ratio Ur 25.9 ug/mg cr (<30)
[2024-05-18 13:49] LABS: Estimated Average Glucose 171 mg/dL; Hemoglobin A1c % 7.6 % (<6.0)
[2024-05-18 14:06] LABS: Alanine Aminotransferase 46 U/L (0-31); Albumin Level 4.1 g/dL (3.5-5.0); Alkaline Phosphatase 80 U/L (39-117); Anion Gap 14 (12-20); Aspartate Amino Transferase 30 U/L (5-31); Bilirubin Total 0.4 mg/dL (0.0-1.0); Blood Urea Nitrogen 16 mg/dL (9-16); Calcium 9.2 mg/dL (8.4-10.2); Carbon Dioxide 22 mmol/L (22-29); Chloride 107 mmol/L (96-108); Cholesterol 230 mg/dL (<200); Estimated Glomerular Filt Rate > 60; Glucose Fasting 157 mg/dL (60-99); HDL Cholesterol 52 mg/dL (>40); LDL Cholesterol Calculated 154 mg/dL (<100); Potassium 4.1 mmol/L (3.3-5.1); Sodium 139 mmol/L (135-145); Total Protein 7.4 g/dL (6.5-8.0); Triglycerides 123 mg/dL (<150)
== END 2024-05-18 09:12 | disposition home or self-care (01) ==
LOC: HO.HMGCLDS 09:11
PROVIDERS: PCP Internal Medicine; Visit Provider Internal Medicine
DX: E11.9 Type 2 diabetes mellitus without complications (principal); E78.5 Hyperlipidemia, unspecified; R73.9 Hyperglycemia, unspecified
CPT/HCPCS: 36415; 80053; 80061; 82043; 82570; 83036; 85025

== ENCOUNTER 2024-05-19 10:03 | Outpatient (REF) | payer MEDICARE, SELFPAY ==
[2024-05-19 15:36] LABS: Influenza A PCR NEGATIVE (Negative); Influenza B PCR NEGATIVE (Negative); Resp Syncy Virus RNA Qual PCR NEGATIVE (Negative); SARS COV2 PCR INHOUSE NEGATIVE (Negative)
== END 2024-05-19 10:04 | disposition home or self-care (01) ==
LOC: HO.LAB 10:03
PROVIDERS: PCP Internal Medicine; Visit Provider Internal Medicine
DX: E11.9 Type 2 diabetes mellitus without complications (principal); E78.5 Hyperlipidemia, unspecified; J06.9 Acute upper respiratory infection, unspecified
CPT/HCPCS: 0241U; 96127; 99212

== ENCOUNTER 2024-05-19 10:03 | Outpatient (AMB) | payer MEDICARE, SELFPAY ==
[2024-05-19 10:07] VITALS: BP 124/66; PULSE 77; RESP 20; TEMP 36.9; O2SAT 95; BMI 37.8
--- NOTE | 2024-05-19 10:07 | A.OFFPC_ITS ---
Vital Signs 05/19/24 10:07 Height 5 ft 1 in Weight 200 lb BMI 37.8 BP 124/66 Blood Pressure Location Lt brachial Position Sitting Respiration 20 Pulse 77 Pulse Source Pulse Oximeter Temp 98.4 F Temp Source Oral Pulse Oximetry (%) 95 Oxygen Delivery Method Room Air Intake Visit Reasons: 3 months follow up Intake Note: Pt is here today for 3 months follow up visit on labs. Allergies cat dander [CAT] Allergy (Unknown, Unverified 05/19/24 10:08) ITCHY,SNEEZY Medication List - Last Reconciled 05/19/24 by Dorene Black MD ascorbate calcium (vitamin C) 500 mg PO DAILY aspirin 81 mg PO DAILY cholecalciferol (vitamin D3) 25 mcg PO DAILY cinnamon bark (Cinnamon) 500 mg PO DAILY estradiol 0.01%(0.1mg/gram) 1 g vaginal 2XW lancets (OneTouch Delica Plus Lancet) Test blood sugar once a day magnesium chloride PO mecobalamin (vitamin B12) PO metformin ER 1,500 mg (2 x 750 mg) PO DAILY Myrbetriq ER (mirabegron) 50 mg PO DAILY NS OneTouch Verio Flex meter (blood-glucose meter) As directed NS OneTouch Verio test strips (blood sugar diagnostic) test blood sugar once a day NS rosuvastatin (Crestor) 5 mg PO DAILY vitamin E acetate PO Tobacco use date assessed: 05/19/24 Fall risk assessment: No Falls in past year Last assessed Fall Risk: 05/19/24 Dental Screening Dental Screen Date: 05/19/24 Did you have a dental visit in the last 12 months?: Yes Did you have a dental problem in the last 6 months where you did not have access to dental care?: No Was dental information given to patient?: Patient has dentist HPI 3 months follow up HPI Details Patient presents for the follow-up of type 2 diabetes hyperlipidemia stable on current medications. She complains of 24 hours of nasal congestion sore throat postnasal drip body aches low-grade fever [facility] Medical History Annual physical exam Anxiety Right knee meniscal tear Left hand paresthesia Cervical radiculopathy due to degenerative joint disease of spine Gestational diabetes mellitus Surgical History H/O colonoscopy Family History Father Stomach cancer Mother No problems noted. Sister No problems noted. Social History Housing: House Patient Tobacco Use Status: Former Tobacco user Years Smoked: 15 yrs e-Cigarette/Vaping Use: Never Used service: No Current occupational status: employed Cognitive needs: No Hearing needs: No Vision needs: Yes Questionnaire PHQ-9 Over the last 2 weeks, how often have you been bothered by any of the following problems? 1. Little interest or pleasure in doing things: not at all 2. Feeling down, depressed, or hopeless: not at all 3. Trouble falling or staying asleep, or sleeping too much: not at all 4. Feeling tired or having little energy: several days 5. Poor appetite or overeating: several days 6. Feeling bad about yourself - or that you are a failure or have let yourself or your family down: not at all 7. Trouble concentrating on things, such as reading the newspaper or watching television: not at all 8. Moving or speaking so slowly that other people could have noticed. Or the opposite - being so fidgety or restless that you have been moving around a lot more than usual: not at all 9. Thoughts that you would be better off or of hurting yourself in some way: not at all Total score: 2 Depression Screening Interpretation: Negative Depression Screening Done: Yes 82464 - PHQ-9 Billing: Yes Source: Developed by Drs. Viktor Becker, Anne-Marie Dahl, Carlo Woods and colleagues, with an educational radha from [employer]. Thrive Questionnaire Date Thrive assessed: 05/19/24 I am a: Patient What is your living situation today?: I have a steady place to live Within the past 12 months, did the food you bought not last and you didn't have the money to get more?: Never true Within the past 12 months, did you worry whether your food would run out before you got money to buy more?: Never true Do you have trouble paying for medicines?: No Do you have trouble getting transportation to medical appointments?: No Do you have trouble paying your heating and electricity bill?: No Do you have trouble taking care of your child, family member or friend?: No Do you have trouble with day-to-day activities such as bathing, preparing meals, shopping, managing finances, etc.?: No Are you currently unemployed and looking for a job?: No Are you interested in more education?: No Please select the resources that you would like help with: Paying for medicine and Utilities Currently or been in a relationship where the following occur: No concerns reported THRIVE Score: 0 AUDIT C Alcohol Use Questionnaire (AUDIT-C) 1. How often do you have a drink containing alcohol?: Never 3. How often do you have six or more drinks on one occasion?: Never Total Score: 0 LOLIS-7 AMB Questionnaire LOLIS-7 Date LOLIS - 7 assessed: 05/19/24 Feeling nervous, anxious, or on edge: 1 = Several days Not being able to stop or control worryin = Several days Worrying too much about different things: 1 = Several days Trouble relaxin = Several days Being so restless that it is hard to sit still: 0 = Not at all Becoming easily annoyed or irritable: 1 = Several days Feeling afraid as if something awful might happen: 0 = Not at all Total LOLIS-7 score (0-4 normal; 5-9 mild; 10-14 moderate; 15-21 severe): 5 Source: Developed by Drs. Viktor Becker, Anne-Marie Dahl, Carlo Woods and colleagues, with an educational radha from [employer]. LOLIS-7 Assessment Billing LOLIS-7 Assessment Tool: LOLIS-7 Assessment 98403 Review of Systems Const All systems reviewed & are unremarkable except as noted in HPI and below Eyes Reports no additional complaints ENT Reports no additional complaints Card Reports no additional complaints Resp Reports no additional complaints GI Reports no additional complaints Reports no additional complaints Physical exam (Primary Care) Vital Signs: Last Vital Signs Temp 98.4 F 05/19/24 10:07 Pulse 77 05/19/24 10:07 Resp 20 05/19/24 10:07 BP 124/66 05/19/24 10:07 Pulse Ox 95 05/19/24 10:07 Oxygen Delivery Method Room Air 05/19/24 10:07 BMI result Body Mass Index 37.8 Tobacco/Smoking Status: Tobacco use Status Tobacco use date assessed 05/19/24 05/19/24 10:10 Patient Tobacco Use Status Former Tobacco user 05/19/24 10:10 e-Cigarette/Vaping Use Never Used 05/19/24 10:10 PHQ-9: PHQ-9 Score PHQ-9: Total score 2 05/19/24 10:10 Depression Screening Interpretation: Negative Thrive Assessment: Date of Thrive Assessment Date Thrive assessed 05/19/24 05/19/24 10:10 Currently or been in a relationship where the following occur: No concerns reported Const General: no acute distress HENMT Head: Yes normal to inspection Ears: hearing grossly normal bilaterally Mouth: Normal oral and palatal mucosa present Eyes General: appearance normal, both eyes and all related structures Neck Neck: Yes no lymphadenopathy and Yes supple Resp Effort & Inspection: normal respiratory effort Auscultation: clear to auscultation bilaterally Cardio Rhythm: regular rhythm Heart sounds: S1 normal heart sound present and S2 normal heart sound present GI Inspection: Yes normal to inspection Palpation (GI): Soft to palpation Percussion: Yes normal to percussion Auscultation: normal bowel sounds Coding Level of Care Code Est Pt Level 4 (84400) Diagnoses DM type 2 (diabetes mellitus, type 2) E11.9 Hyperlipidemia E78.5 URI (upper respiratory infection) J06.9 Additional Codes LOLIS-7 Assessment Billing - LOLIS-7 Assessment Tool: LOLIS-7 Assessment 57602 ([id number]) PHQ-9 - 41995 - PHQ-9 Billing: Yes ([id number]) Assessment & Plan Assessment & Plan (1) DM type 2 (diabetes mellitus, type 2): Code(s): E11.9 - Type 2 diabetes mellitus without complications Category: Medical Plan: A1c is down to 7.6, ADA diet increase physical activity weight loss discussed with the patient she follows up with dietitian. Patient will continue current medications. She is not interested in starting GLP 1 agonist yet. Follow-up in 3 months with a fasting labs before (2) Hyperlipidemia: Code(s): E78.5 - Hyperlipidemia, unspecified Category: Medical Plan: Restart Crestor (3) URI (upper respiratory infection): Code(s): J06.9 - Acute upper respiratory infection, unspecified Category: Medical Plan: Supportive care discussed with the patient Orders: Orders Comprehensive Len[place]ah. Panel Fast 3 Months E11.9 - Type 2 diabetes mellitus without complications, E78.5 - Hyperlipidemia, unspecified Complete Blood Count Auto Diff 3 Months E11.9 - Type 2 diabetes mellitus without complications, E78.5 - Hyperlipidemia, unspecified Hemoglobin A1c 3 Months E11.9 - Type 2 diabetes mellitus without complications, E78.5 - Hyperlipidemia, unspecified Microalbumin, Random (w Creat) 3 Months E11.9 - Type 2 diabetes mellitus without complications, E78.5 - Hyperlipidemia, unspecified SARS-CoV2/FLU/RSV Today J39.9 - Disease of upper respiratory tract, unspecified Lipid Panel 3 Months E11.9 - Type 2 diabetes mellitus without complications, E78.5 - Hyperlipidemia, unspecified
--- OUTSIDE RECORDS SUMMARY | 2024-05-19 12:06 | XMS_ITS | Data Portability ---
Author Organization [facility], [address] Address [address] [place] [address] Assessment No assessment recorded. Plan of Treatment Reminders Order Date Submit Date Provider Last Modified By Organization Details Last Modified Time Details Appointments None recorded. Lab urinalysis, dipstick 2022 023 [email or web address] [facility] [address], [address] [place], [address], 15:13:27 culture, urine 2022 023 ONEKAMA [facility], [address] [place] [address], [place], [address], 06:07:26 Referral None recorded. Procedures None recorded. Surgeries None recorded. Imaging None recorded. Medication Orders meloxicam 7.5 mg tablet 2022 023 ONEKAMA [id number], [phone] [place], [address], 3 15:13:29 cefuroxime axetil 500 mg tablet 2022 023 [email or web address] [id number], [phone] [place], [address], 3 22:32:41 Patient TargetsNo targets recorded. Patient Instructions Encounter Date Encounter Id Patient Instructions Last Modified By Organization Details Last Modified Time 04/15/2022 [id number] sacroiliac pain: exercises [email or web address] Not available 04/15/2022 15:13:26 sacroiliac joint pain: care instructions [email or web address] Not available 04/15/2022 15:13:26 Urge Incontinenc e: Care Instructions [email or web address] Not available 04/15/2022 15:13:26 You are going [...] antibiotic was prescribed. Thank you for using [facility] - please don't hesistate to call our office if you have any questions or concerns. [email or web address] Not available 04/15/2022 15:14:30 Reason for Referral None Reported. Results Created Date Observation Date Name Description Value Unit Range Abnormal Flag Note LastModifiedBy Organization Detail LastModifiedTime 04/15/1904/17/2022 URINE CULTU RE, GEOFFI NE urine culture, routine FINAL REPORT Not Available [facility] ([facility]) [address] [facility], [place], [address], 04/17/2022 06:07:26 04/15/1904/17/2022 URINE CULTU RE, GEOFFI NE result 1 NO GROWTH Not Available [facility] ([facility]) [address] [facility], [place], [address], 04/17/2022 06:07:26 04/15/1904/15/2022 urina lysis , dipst ick Unknown Analyte Normal = light yellow Not Available [address] [place], [address], 04/15/2022 13:55:58 04/15/1904/15/2022 urina lysis , dipst ick Unknown Analyte Yellow Not Available [address] [facility] [address] [place], [address], 04/15/2022 13:55:58 04/15/1904/15/2022 urina lysis , dipst ick Unknown Analyte Normal = clear Not Available [address] [place], [address], 04/15/2022 13:55:58 04/15/1904/15/2022 urina lysis , dipst ick Unknown Analyte Clear Not Available [address] [place] [address] [address] [place], [address], 04/15/2022 13:55:58 04/15/1904/15/2022 urina lysis , dipst ick Unknown Analyte Normal = negati ve Not Available [address] [place], [address], 04/15/2022 13:55:58 04/15/1904/15/2022 urina lysis , dipst ick Unknown Analyte Negati ve Not Available [address] [place], [address], 04/15/2022 13:55:58 04/15/1904/15/2022 urina lysis , dipst ick Unknown Analyte Normal = Negati ve Not Available [address] [place], [address], 04/15/2022 13:55:58 04/15/1904/15/2022 urina lysis , dipst ick Unknown Analyte Negati ve Not Available [address] [place], [address], 04/15/2022 13:55:58 04/15/1904/15/2022 urina lysis , dipst ick Unknown Analyte Normal = Negati ve Not Available [address] [place], [address], 04/15/2022 13:55:58 04/15/1904/15/2022 urina lysis , dipst ick Unknown Analyte Negati ve Not Available [address] [place], [address], 04/15/2022 13:55:58 04/15/1904/15/2022 urina lysis , dipst ick Unknown Analyte Normal = 1.010, 1.015, 1.020 Not Available [facility] [address] [place], [address], 04/15/2022 13:55:58 04/15/1904/15/2022 urina lysis , dipst ick Unknown Analyte 1.015 Not Available [address] [place] [address] [address] [place], [address], 04/15/2022 13:55:58 04/15/1904/15/2022 urina lysis , dipst ick Unknown Analyte Normal = Negati ve Not Available [address] [place], [address], 04/15/2022 13:55:58 04/15/1904/15/2022 urina lysis , dipst ick Unknown Analyte Trace- intact Not Available [address] [place], [address], 04/15/2022 13:55:58 04/15/1904/15/2022 urina lysis , dipst ick Unknown Analyte Normal = 6.5, 7.0, 7.5, 8.0 Not Available [address] [place], [address], 04/15/2022 13:55:58 04/15/1904/15/2022 urina lysis , dipst ick Unknown Analyte 5.0 Not Available [facility] [address] [place], [address], 04/15/2022 13:55:58 04/15/1904/15/2022 urina lysis , dipst ick Unknown Analyte Normal = Negati ve Not Available [address] [place], [address], 04/15/2022 13:55:58 04/15/1904/15/2022 urina lysis , dipst ick Unknown Analyte Negati ve Not Available [address] [place], [address], 04/15/2022 13:55:58 04/15/1904/15/2022 urina lysis , dipst ick Unknown Analyte Normal = 0.2, 1.0 Not Available [address] [place], [address], 04/15/2022 13:55:58 04/15/1904/15/2022 urina lysis , dipst ick Unknown Analyte 0.2 E.U./d L Not Available [address] [place], [address], 04/15/2022 13:55:58 04/15/1904/15/2022 urina lysis , dipst ick Unknown Analyte Normal = Negati ve Not Available [address] [place], [address], 04/15/2022 13:55:58 04/15/1904/15/2022 urina lysis , dipst ick Unknown Analyte Negati ve Not Available [address] [place], [address], 04/15/2022 13:55:58 04/15/1904/15/2022 urina lysis , dipst ick Unknown Analyte Normal = Negati ve Not Available [address] [place], [address], 04/15/2022 13:55:58 04/15/1904/15/2022 urina lysis , dipst ick Unknown Analyte Negati ve Not Available [address] [place], [address], 04/15/2022 13:55:58 Result Notes None recorded. Problems Name Problem SNOMED Code Status Onset Date Resolution Date Notes Provider Name and Address Organization Details Recorded Time Hyperlipidemia 09564943 Active 2022 KIM Manjarrez - [facility] [...] Updated DateTime 4 152.4 cm 38.7 kg/m2 11775.2 9 g 98.5 [degF] 20 /min 68 /min 98 % 98 % 1 147 mm[Hg] 82 mm[Hg] Jazmyne Ramirez [place] - [facility] 4 15:27:59 Date Recorded Body height Body mass index (BMI) Body weight Body temperature Heart rate Respiratory rate Oxygen saturation Oxygen saturation in Arterial blood by Pulse oximetry Systolic blood pressure Diastolic blood pressure Provider Name and Address Organization Details Last Updated DateTime 3 152.4 cm 37.3 kg/m2 84778.1 4 g 98.3 [degF] 71 /min 18 /min 98 % 98 % 154 mm[Hg] 94 mm[Hg] Rasheeda Ortiz [place] - [facility] 3 13:52:27 Date Recorded Systolic blood pressure Diastolic blood pressure Provider Name and Address Organization Details Last Updated DateTime 04/15/2022 146 mm[Hg] 76 mm[Hg] KIM SOLORZANO [address] [place], [address], [place] - [facility] 04/15/2022 15:14:46 Social [...] Use Any Illicit Or Recreational Drugs? No [email or web address] Information not available 04/15/2022 Have You Recently Traveled Abroad? No [email or web address] Information not available 04/15/2022 Do You Or Have You Ever Used Any Other Forms Of Tobacco Or Nicotine? No [email or web address] Information not available 04/15/2022 Sex: Unknown Functional Status None recorded. Mental Status None recorded. Family History Relationship Description Onset Age of this Age Resolved Age Notes LastModified by Organization Details LastModified Time Father No current problems or disability [email or web address] Not available 03/25 13:55:09 Mother No current problems or disability [email or web address] Not available 03/25 13:55:09 Medical History No [...] SNOMED-CT Code Diagnosis ICD10 Code Diagnosis Note [id number] [address] [address] 02/02/2020 17:17:40 02/02/2020 19:32:47 [id number] [address] [facility], [place] [address] 03/05/2021 13:04:26 03/05/2021 15:16:50 [id number] [address] [facility], [place] [address] 06/16/2020 08:07:09 06/16/2020 08:38:19 [id number] [address] [facility] [place] [address] 03/26/2021 17:41:19 03/26/2021 18:07:16 [id number] [address] [facility] [place] [address] 08/26/2020 16:53:42 08/26/2020 18:58:42 [id number] [address] [place] [address] 06/13/2020 12:47:13 06/13/2020 13:30:15 [id number] [address] [facility] [place] [address] 07/27/2020 08:49:35 07/27/2020 11:19:22 [id number] KIM SOLORZANO [address] [facility] [place] [address] 04/15/2022 12:52:06 04/15/2022 15:14:55 Inflammation of sacroiliac joint [id number] M46.1 Urgent conrad ajay to urinate [id number] R39.15 Dental abscess [id number] K04.7 [id number] KIM Luna [address] [facility] [place] [address] 07/27/2023 15:21:02 07/27/2023 15:35:00 Hordeolum externum of lower eyelid of left eye [id number] 95070 H00.025 Based on your presentati on and [...] than 2 weeks. Thank you for using [facility] today, please feel free to contact us with any questions or concerns. Health Concerns Section Related Observation LastModified by Organization Detai ls LastModified Time None Recorded Concern Status LastModified by Organization Details LastModified Time None Recorded Advance Directives Directive None Recorded Payers Encounter Date Sequence Insurance Name Policy Number Policy Winslow Covered Member ID Winslow Member ID Guarantor Name 03/05/2021 1 [place] [facility] [place] [id number] Cas T Malcolm [id number] Francesca Malcolm 03/26/2021 1 [place] [facility] [place] [id number] Cas T Malcolm [id number] Francesca Malcolm 04/15/2022 1 [place] [facility] [place] [id number] Cas T Malcolm [id number] Francesca Malcolm 07/27/2023 1 [place] [facility] [place] [id number] Cas Malcolm [id number] Francesca Malcolm Notes Date Note Type [...] surgery. ]KIM Cage [address] [place], [address], [place] - [facility] 04/15/2022 22:49:31 4 text/html 68 y/o female here with L lower eyelid swelling starting yesterday. A little tender, no eye pain or drainage KIM Luna [address] [place], [address], [place] - [facility] 07/27/2023 15:35:21 OBGyn Episode No OBEpisode recorded.
== END 2024-05-19 11:17 | disposition home or self-care (01) ==
PROVIDERS: PCP Internal Medicine; Visit Provider Internal Medicine
DX: E11.9 Type 2 diabetes mellitus without complications (principal); E78.5 Hyperlipidemia, unspecified; J06.9 Acute upper respiratory infection, unspecified

== ENCOUNTER 2024-06-16 09:43 | Outpatient (AMB) | payer MEDICARE, SELFPAY ==
[2024-06-16 09:46] VITALS: BP 134/80; PULSE 73; RESP 18; TEMP 36.5; O2SAT 98; BMI 38.2
--- NOTE | 2024-06-16 09:46 | A.OFFPC_ITS ---
Vital Signs 06/16/24 09:46 Height 5 ft 1 in Weight 202 lb BMI 38.2 BP 134/80 Blood Pressure Location Lt brachial Position Sitting Respiration 18 Pulse 73 Pulse Source Pulse Oximeter Temp 97.7 F Temp Source Oral Pulse Oximetry (%) 98 Oxygen Delivery Method Room Air Intake Visit Reasons: nail fungus Intake Note: Pt is here today for a sick visit. Pt c/o nail fungus and would like to request referral to beauty specialist for callus. Allergies cat dander [CAT] Allergy (Unknown, Unverified 06/16/24 09:48) ITCHY,SNEEZY Medication List - Last Reconciled 06/16/24 by Dorene Black MD ascorbate calcium (vitamin C) 500 mg PO DAILY aspirin 81 mg PO DAILY cholecalciferol (vitamin D3) 25 mcg PO DAILY cinnamon bark (Cinnamon) 500 mg PO DAILY estradiol 0.01%(0.1mg/gram) 1 g vaginal 2XW lancets (OneTouch Delica Plus Lancet) Test blood sugar once a day magnesium chloride PO mecobalamin (vitamin B12) PO metformin ER 1,500 mg (2 x 750 mg) PO DAILY Myrbetriq ER (mirabegron) 50 mg PO DAILY NS OneTouch Verio Flex meter (blood-glucose meter) As directed NS OneTouch Verio test strips (blood sugar diagnostic) test blood sugar once a day NS rosuvastatin (Crestor) 5 mg PO DAILY tirzepatide (Mounjaro) 2.5 mg (0.5 mL) subcut QWEEK vitamin E acetate PO Tobacco use date assessed: 06/16/24 Fall risk assessment: No Falls in past year Last assessed Fall Risk: 06/16/24 Dental Screening Dental Screen Date: 05/19/24 HPI nail fungus HPI Details Patient noticed thickened and deformed fingernails after removing gel nail [place]. She has started using [id number]-dgw-lxqooyu clotrimazole topical cream. Patient has been doing dishes without wearing protective gloves. 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 Type 2 diabetes is controlled on metformin. Patient will be starting Mounjaro but needs instruction how to use it and will return for a nurse visit with the medication. [facility] Medical History Annual physical exam Anxiety Right knee meniscal tear Left hand paresthesia Cervical radiculopathy due to degenerative joint disease of spine Gestational diabetes mellitus Surgical History H/O colonoscopy Family History Father Stomach cancer Mother No problems noted. Sister No problems noted. Social History Housing: House Patient Tobacco Use Status: Former Tobacco user Years Smoked: 15 yrs e-Cigarette/Vaping Use: Never Used service: No Current occupational status: employed Cognitive needs: No Hearing needs: No Vision needs: Yes Questionnaire Thrive Questionnaire Date Thrive assessed: 05/19/24 I am a: Patient What is your living situation today?: I have a steady place to live Within the past 12 months, did the food you bought not last and you didn't have the money to get more?: Never true Within the past 12 months, did you worry whether your food would run out before you got money to buy more?: Never true Do you have trouble paying for medicines?: No Do you have trouble getting transportation to medical appointments?: No Do you have trouble paying your heating and electricity bill?: No Do you have trouble taking care of your child, family member or friend?: No Do you have trouble with day-to-day activities such as bathing, preparing meals, shopping, managing finances, etc.?: No Are you currently unemployed and looking for a job?: No Are you interested in more education?: No Currently or been in a relationship where the following occur: No concerns reported THRIVE Score: 0 AUDIT C Alcohol Use Questionnaire (AUDIT-C) 2. How many drinks containing alcohol do you have on a typical day when you are drinking?: 1 or 2 3. How often do you have six or more drinks on one occasion?: Never Total Score: 0 LOLIS-7 AMB Questionnaire LOLIS-7 Date LOLIS - 7 assessed: 05/19/24 Source: Developed by Drs. Viktor Becker, Anne-Marie Dahl, Carlo Woods and colleagues, with an educational radha from [employer]. Review of Systems Const All systems reviewed & are unremarkable except as noted in HPI and below ENT Reports no additional complaints Card Reports no additional complaints Resp Reports no additional complaints GI Reports no additional complaints Reports no additional complaints Physical exam (Primary Care) Vital Signs: Last Vital Signs Temp 97.7 F 06/16/24 09:46 Pulse 73 06/16/24 09:46 Resp 18 06/16/24 09:46 BP 134/80 06/16/24 09:46 Pulse Ox 98 06/16/24 09:46 Oxygen Delivery Method Room Air 06/16/24 09:46 BMI result Body Mass Index 38.2 Tobacco/Smoking Status: Tobacco use Status Tobacco use date assessed 06/16/24 06/16/24 09:52 Patient Tobacco Use Status Former Tobacco user 06/16/24 09:52 e-Cigarette/Vaping Use Never Used 06/16/24 09:52 Thrive Assessment: Date of Thrive Assessment Date Thrive assessed 05/19/24 06/16/24 09:52 Currently or been in a relationship where the following occur: No concerns reported Const General: no acute distress HENMT Head: Yes normal to inspection Neck Neck: Yes supple Resp Effort & Inspection: normal respiratory effort Auscultation: clear to auscultation bilaterally Cardio Rhythm: regular rhythm Heart sounds: S1 normal heart sound present and S2 normal heart sound present Extrem Other: thickened, discolored and deformed fingernails on both hands Coding Level of Care Code Est Pt Level 4 (28802) Diagnoses Callus of foot L84 Onychomycosis B35.1 DM type 2 (diabetes mellitus, type 2) E11.9 Assessment & Plan Assessment & Plan (1) Callus of foot: Code(s): L84 - Corns and callosities Category: Medical Plan: Referred to Podiatry (2) Onychomycosis: Code(s): B35.1 - Tinea unguium Category: Medical Plan: She will continue topical clotrimazole cream. Patient was advised to avoid prolonged exposure to water. (3) DM type 2 (diabetes mellitus, type 2): Code(s): E11.9 - Type 2 diabetes mellitus without complications Category: Medical Plan: Continue metformin patient will start Mounjaro Orders: Referrals Podiatry Referral L84 - Corns and callosities
--- OUTSIDE RECORDS SUMMARY | 2024-06-16 10:54 | XMS_ITS | Data Portability ---
Author Organization [facility], [address] Address [address] [place] [address] Assessment No assessment recorded. Plan of Treatment Reminders Order Date Submit Date Provider Last Modified By Organization Details Last Modified Time Details Appointments None recorded. Lab urinalysis, dipstick 2022 023 [email or web address] [address], [address] [place], [address], 15:13:27 culture, urine 2022 023 MELISSA [facility], [address] [place] [address], [place], [address], 06:07:26 Referral None recorded. Procedures None recorded. Surgeries None recorded. Imaging None recorded. Medication Orders meloxicam 7.5 mg tablet 2022 023 MELISSA [id number], [phone] [place], [address], 3 15:13:29 cefuroxime axetil 500 mg tablet 2022 023 [id number], [phone] [place], [address], 3 22:32:41 Patient TargetsNo targets recorded. Patient Instructions Encounter Date Encounter Id Patient Instructions Last Modified By Organization Details Last Modified Time 04/15/2022 [id number] sacroiliac pain: exercises [email or web address] Not available 04/15/2022 15:13:26 sacroiliac joint pain: care instructions [email or web address] Not available 04/15/2022 15:13:26 Urge Incontinenc e: Care Instructions [email or web address] Not available 04/15/2022 15:13:26 You are going [...] antibiotic was prescribed. Thank you for using [facility] - please don't hesistate to call our office if you have any questions or concerns. [email or web address] Not available 04/15/2022 15:14:30 Reason for Referral None Reported. Results Created Date Observation Date Name Description Value Unit Range Abnormal Flag Note LastModifiedBy Organization Detail LastModifiedTime 04/15/1904/17/2022 URINE CULTU RE, GEOFFI NE urine culture, routine FINAL REPORT Not Available [facility] ([facility]) [address] [facility], [place], [address], 04/17/2022 06:07:26 04/15/1904/17/2022 URINE CULTU RE, GEOFFI NE result 1 NO GROWTH Not Available [facility] ([facility]) [address] [facility], [place], [address], 04/17/2022 06:07:26 04/15/1904/15/2022 urina lysis , dipst ick Unknown Analyte Normal = light yellow Not Available [address] [place], [address], 04/15/2022 13:55:58 04/15/1904/15/2022 urina lysis , dipst ick Unknown Analyte Yellow Not Available [address] [facility] [address] [place], [address], 04/15/2022 13:55:58 04/15/1904/15/2022 urina lysis , dipst ick Unknown Analyte Normal = clear Not Available [address] [place], [address], 04/15/2022 13:55:58 04/15/1904/15/2022 urina lysis , dipst ick Unknown Analyte Clear Not Available [address] [place] [address] [address] [place], [address], 04/15/2022 13:55:58 04/15/1904/15/2022 urina lysis , dipst ick Unknown Analyte Normal = negati ve Not Available [address] [place], [address], 04/15/2022 13:55:58 04/15/1904/15/2022 urina lysis , dipst ick Unknown Analyte Negati ve Not Available [address] [place], [address], 04/15/2022 13:55:58 04/15/1904/15/2022 urina lysis , dipst ick Unknown Analyte Normal = Negati ve Not Available [address] [place], [address], 04/15/2022 13:55:58 04/15/1904/15/2022 urina lysis , dipst ick Unknown Analyte Negati ve Not Available [address] [place], [address], 04/15/2022 13:55:58 04/15/1904/15/2022 urina lysis , dipst ick Unknown Analyte Normal = Negati ve Not Available [address] [place], [address], 04/15/2022 13:55:58 04/15/1904/15/2022 urina lysis , dipst ick Unknown Analyte Negati ve Not Available [address] [place], [address], 04/15/2022 13:55:58 04/15/1904/15/2022 urina lysis , dipst ick Unknown Analyte Normal = 1.010, 1.015, 1.020 Not Available [facility] [address] [place], [address], 04/15/2022 13:55:58 04/15/1904/15/2022 urina lysis , dipst ick Unknown Analyte 1.015 Not Available [address] [place] [address] [address] [place], [address], 04/15/2022 13:55:58 04/15/1904/15/2022 urina lysis , dipst ick Unknown Analyte Normal = Negati ve Not Available [address] [place], [address], 04/15/2022 13:55:58 04/15/1904/15/2022 urina lysis , dipst ick Unknown Analyte Trace- intact Not Available [address] [place], [address], 04/15/2022 13:55:58 04/15/1904/15/2022 urina lysis , dipst ick Unknown Analyte Normal = 6.5, 7.0, 7.5, 8.0 Not Available [address] [place], [address], 04/15/2022 13:55:58 04/15/1904/15/2022 urina lysis , dipst ick Unknown Analyte 5.0 Not Available [facility] [address] [place], [address], 04/15/2022 13:55:58 04/15/1904/15/2022 urina lysis , dipst ick Unknown Analyte Normal = Negati ve Not Available [address] [place], [address], 04/15/2022 13:55:58 04/15/1904/15/2022 urina lysis , dipst ick Unknown Analyte Negati ve Not Available [address] [place], [address], 04/15/2022 13:55:58 04/15/1904/15/2022 urina lysis , dipst ick Unknown Analyte Normal = 0.2, 1.0 Not Available [address] [place], [address], 04/15/2022 13:55:58 04/15/1904/15/2022 urina lysis , dipst ick Unknown Analyte 0.2 E.U./d L Not Available [address] [place], [address], 04/15/2022 13:55:58 04/15/1904/15/2022 urina lysis , dipst ick Unknown Analyte Normal = Negati ve Not Available [address] [place], [address], 04/15/2022 13:55:58 04/15/1904/15/2022 urina lysis , dipst ick Unknown Analyte Negati ve Not Available [address] [place], [address], 04/15/2022 13:55:58 04/15/1904/15/2022 urina lysis , dipst ick Unknown Analyte Normal = Negati ve Not Available [address] [place], [address], 04/15/2022 13:55:58 04/15/1904/15/2022 urina lysis , dipst ick Unknown Analyte Negati ve Not Available [address] [place], [address], 04/15/2022 13:55:58 Result Notes None recorded. Problems Name Problem SNOMED Code Status Onset Date Resolution Date Notes Provider Name and Address Organization Details Recorded Time Hyperlipidemia 38295699 Active 2022 KIM Manjarrez - [facility] [...] Updated DateTime 4 152.4 cm 38.7 kg/m2 09187.2 9 g 98.5 [degF] 20 /min 68 /min 98 % 98 % 1 147 mm[Hg] 82 mm[Hg] Jazmyne Ramirez [place] - [facility] 4 15:27:59 Date Recorded Body height Body mass index (BMI) Body weight Body temperature Heart rate Respiratory rate Oxygen saturation Oxygen saturation in Arterial blood by Pulse oximetry Systolic blood pressure Diastolic blood pressure Provider Name and Address Organization Details Last Updated DateTime 3 152.4 cm 37.3 kg/m2 16984.1 4 g 98.3 [degF] 71 /min 18 /min 98 % 98 % 154 mm[Hg] 94 mm[Hg] Rasheeda Ortiz [place] - [facility] 3 13:52:27 Date Recorded Systolic blood pressure Diastolic blood pressure Provider Name and Address Organization Details Last Updated DateTime 04/15/2022 146 mm[Hg] 76 mm[Hg] KIM SOLORZANO [address] [place], [address], [place] - [facility] 04/15/2022 15:14:46 Social [...] Use Any Illicit Or Recreational Drugs? No [email or web address] Information not available 04/15/2022 Have You Recently Traveled Abroad? No Information not available 04/15/2022 Do You Or Have You Ever Used Any Other Forms Of Tobacco Or Nicotine? No Information not available 04/15/2022 Sex: Unknown Functional Status None recorded. Mental Status None recorded. Family History Relationship Description Onset Age of this Age Resolved Age Notes LastModified by Organization Details LastModified Time Father No current problems or disability [email or web address] Not available 03/25 13:55:09 Mother No current problems or disability [email or web address] Not available 03/25 13:55:09 Medical History No [...] SNOMED-CT Code Diagnosis ICD10 Code Diagnosis Note [id number] [address] [address] 02/02/2020 17:17:40 02/02/2020 19:32:47 [id number] [address] [facility], [place] [address] 03/05/2021 13:04:26 03/05/2021 15:16:50 [id number] [address] [facility], [place] [address] 06/16/2020 08:07:09 06/16/2020 08:38:19 [id number] [address] [facility] [place] [address] 03/26/2021 17:41:19 03/26/2021 18:07:16 [id number] [address] [facility] [place] [address] 08/26/2020 16:53:42 08/26/2020 18:58:42 [id number] [address] [place] [place] [address] 06/13/2020 12:47:13 06/13/2020 13:30:15 [id number] [address] [facility] [place] [address] 07/27/2020 08:49:35 07/27/2020 11:19:22 [id number] KIM SOLORZANO [address] [facility] [place] [address] 04/15/2022 12:52:06 04/15/2022 15:14:55 Inflammation of sacroiliac joint 34143682 M46.1 Urgent conrad ajay to urinate 80815366 R39.15 Dental abscess [id number] K04.7 [id number] KIM Luna [address] [facility] [place] [address] 07/27/2023 15:21:02 07/27/2023 15:35:00 Hordeolum externum of lower eyelid of left eye 0545697057 69914 H00.025 Based on your presentati on and [...] than 2 weeks. Thank you for using [facility] today, please feel free to contact us with any questions or concerns. Health Concerns Section Related Observation LastModified by Organization Detai ls LastModified Time None Recorded Concern Status LastModified by Organization Details LastModified Time None Recorded Advance Directives Directive None Recorded Payers Encounter Date Sequence Insurance Name Policy Number Policy Winslow Covered Member ID Winslow Member ID Guarantor Name 03/05/2021 1 [place] [facility] [id number] Cas T Malcolm [id number] Francesca Malcolm 03/26/2021 1 [place] [facility] [place] [id number] Cas T Malcolm [id number] Francesca Malcolm 04/15/2022 1 [place] [facility] [place] [id number] Acs T Malcolm [id number] Francesca Malcolm 07/27/2023 1 [place] [facility] [place] [id number] Cas Malcolm [id number] Francesca Malcolm Notes Date Note Type [...] pending an bypass surgery. ]KIM Cage [address] [place], [address], [place] - [facility] 04/15/2022 22:49:31 4 text/html 68 y/o female here with L lower eyelid swelling starting yesterday. A little tender, no eye pain or drainage KIM Luna [address] [place], [address], [place] - [facility] 07/27/2023 15:35:21 OBGyn Episode No OBEpisode recorded.
== END 2024-06-16 11:42 | disposition home or self-care (01) ==
LOC: HO.HMCC 09:44
PROVIDERS: PCP Internal Medicine; Visit Provider Internal Medicine
DX: L84 Corns and callosities (principal); B35.1 Tinea unguium; E11.9 Type 2 diabetes mellitus without complications

== ENCOUNTER → 2024-06-16 09:43 | Outpatient (BNVA) | payer MEDICARE, SELFPAY | PROVIDERS: PCP Internal Medicine; Visit Provider Internal Medicine | DX: L84 Corns and callosities (principal); B35.1 Tinea unguium; E11.9 Type 2 diabetes mellitus without complications | CPT/HCPCS: 99212 ==

== ENCOUNTER 2024-08-17 09:39 | Outpatient (REF) | payer MEDICARE, SELFPAY ==
--- OUTSIDE RECORDS SUMMARY | 2024-08-17 10:16 | XMS_ITS | Data Portability ---
Author Organization [facility], [address] Address [address] [place] [address] Assessment No assessment recorded. Plan of Treatment Reminders Order Date Submit Date Provider Last Modified By Organization Details Last Modified Time Details Appointments None recorded. Lab urinalysis, dipstick 2022 023 [address], [address] [place], [address], 15:13:27 culture, urine 2022 023 KASBEER [facility], [address] [place] [address], [place], [address], 06:07:26 Referral None recorded. Procedures None recorded. Surgeries None recorded. Imaging None recorded. Medication Orders meloxicam 7.5 mg tablet 2022 023 KASBEER [id number], [phone] [place], [address], 3 15:13:29 cefuroxime axetil 500 mg tablet 2022 023 [email or web address] [id number], [phone] [place], [address], 3 22:32:41 Patient TargetsNo targets recorded. Patient Instructions Encounter Date Encounter Id Patient Instructions Last Modified By Organization Details Last Modified Time 04/15/2022 [id number] sacroiliac pain: exercises [email or web address] Not available 04/15/2022 15:13:26 sacroiliac joint pain: care instructions Not available 04/15/2022 15:13:26 Urge Incontinenc e: Care Instructions [email or web address] Not available 04/15/2022 15:13:26 You are going [...] antibiotic was prescribed. Thank you for using [facility] - please don't hesistate to call our office if you have any questions or concerns. [email or web address] Not available 04/15/2022 15:14:30 Reason for Referral None Reported. Results Created Date Observation Date Name Description Value Unit Range Abnormal Flag Note LastModifiedBy Organization Detail LastModifiedTime 04/15/1904/17/2022 URINE CULTU RE, GEOFFI NE urine culture, routine FINAL REPORT Not Available [facility] ([facility]) [address] [facility], [place], [address], 04/17/2022 06:07:26 04/15/1904/17/2022 URINE CULTU RE, GEOFFI NE result 1 NO GROWTH Not Available [facility] ([facility]) [address] [facility], [place], [address], 04/17/2022 06:07:26 04/15/1904/15/2022 urina lysis , dipst ick Unknown Analyte Normal = light yellow Not Available [address] [place], [address], 04/15/2022 13:55:58 04/15/1904/15/2022 urina lysis , dipst ick Unknown Analyte Yellow Not Available [address] [place], [address], 04/15/2022 13:55:58 04/15/1904/15/2022 urina lysis , dipst ick Unknown Analyte Normal = clear Not Available [address] [place], [address], 04/15/2022 13:55:58 04/15/1904/15/2022 urina lysis , dipst ick Unknown Analyte Clear Not Available [address] [place] [address] [address] [place], [address], 04/15/2022 13:55:58 04/15/1904/15/2022 urina lysis , dipst ick Unknown Analyte Normal = negati ve Not Available [address] [place], [address], 04/15/2022 13:55:58 04/15/1904/15/2022 urina lysis , dipst ick Unknown Analyte Negati ve Not Available [address] [place], [address], 04/15/2022 13:55:58 04/15/1904/15/2022 urina lysis , dipst ick Unknown Analyte Normal = Negati ve Not Available [address] [place], [address], 04/15/2022 13:55:58 04/15/1904/15/2022 urina lysis , dipst ick Unknown Analyte Negati ve Not Available [address] [place], [address], 04/15/2022 13:55:58 04/15/1904/15/2022 urina lysis , dipst ick Unknown Analyte Normal = Negati ve Not Available [address] [place], [address], 04/15/2022 13:55:58 04/15/1904/15/2022 urina lysis , dipst ick Unknown Analyte Negati ve Not Available [address] [place], [address], 04/15/2022 13:55:58 04/15/1904/15/2022 urina lysis , dipst ick Unknown Analyte Normal = 1.010, 1.015, 1.020 Not Available [facility] [address] [place], [address], 04/15/2022 13:55:58 04/15/1904/15/2022 urina lysis , dipst ick Unknown Analyte 1.015 Not Available [address] [place] [address] [address] [place], [address], 04/15/2022 13:55:58 04/15/1904/15/2022 urina lysis , dipst ick Unknown Analyte Normal = Negati ve Not Available [address] [place], [address], 04/15/2022 13:55:58 04/15/1904/15/2022 urina lysis , dipst ick Unknown Analyte Trace- intact Not Available [address] [place], [address], 04/15/2022 13:55:58 04/15/1904/15/2022 urina lysis , dipst ick Unknown Analyte Normal = 6.5, 7.0, 7.5, 8.0 Not Available [address] [place], [address], 04/15/2022 13:55:58 04/15/1904/15/2022 urina lysis , dipst ick Unknown Analyte 5.0 Not Available [address] [place], [address], 04/15/2022 13:55:58 04/15/1904/15/2022 urina lysis , dipst ick Unknown Analyte Normal = Negati ve Not Available [address] [place], [address], 04/15/2022 13:55:58 04/15/1904/15/2022 urina lysis , dipst ick Unknown Analyte Negati ve Not Available [address] [place], [address], 04/15/2022 13:55:58 04/15/1904/15/2022 urina lysis , dipst ick Unknown Analyte Normal = 0.2, 1.0 Not Available [address] [place], [address], 04/15/2022 13:55:58 04/15/1904/15/2022 urina lysis , dipst ick Unknown Analyte 0.2 E.U./d L Not Available [address] [place], [address], 04/15/2022 13:55:58 04/15/1904/15/2022 urina lysis , dipst ick Unknown Analyte Normal = Negati ve Not Available [address] [place], [address], 04/15/2022 13:55:58 04/15/1904/15/2022 urina lysis , dipst ick Unknown Analyte Negati ve Not Available [address] [place], [address], 04/15/2022 13:55:58 04/15/1904/15/2022 urina lysis , dipst ick Unknown Analyte Normal = Negati ve Not Available [address] [place], [address], 04/15/2022 13:55:58 04/15/1904/15/2022 urina lysis , dipst ick Unknown Analyte Negati ve Not Available [address] [place], [address], 04/15/2022 13:55:58 Result Notes None recorded. Problems Name Problem SNOMED Code Status Onset Date Resolution Date Notes Provider Name and Address Organization Details Recorded Time Hyperlipidemia 97224357 Active 2022 KIM Manjarrez - [facility] [...] Available N ot Available Vitals Date Recorded Systolic And Diastolic Provider Name and Address Organization Details Last Updated DateTime 04/15/2022 146/76 mm[Hg] KIM SOLORZANO [address], [place], [address], [place] - [facility] 04/15/2022 15:14:46 Date Recorded Body height Body mass index (BMI) Body weight Body temperature Heart rate Respiratory rate Oxygen saturation Oxygen saturation in Arterial blood by Pulse oximetry Systolic And Diastolic Provider Name and Address Organization Details Last Updated DateTime 3 152.4 cm 37.3 kg/m2 34427.1 4 g 98.3 [degF] 71 /min 18 /min 98 % 98 % 154/94 mm[Hg] Rasheeda Ortiz [place] - [facility] 3 13:52:27 Date Recorded Body height Body mass index (BMI) Body weight Body temperature Respiratory rate Heart rate Oxygen saturation Oxygen saturation in Arterial blood by Pulse oximetry Systolic And Diastolic Provider Name and Address Organization Details Last Updated DateTime 4 152.4 cm 38.7 kg/m2 86549.2 9 g 98.5 [degF] 20 /min 68 /min 98 % 98 % 147/82 mm[Hg] [facility] 15:27:59 Social History Question Answer Notes LastModified by Organizat ion Details LastModified Time Tobacco Smoking Status Former Smoker [facility] 07/27/2023 15:29:35 When Did You Quit Smoking? 16+yearssinc elastcigaret [...] Smoke? 1 PPW Information not available 07/27/2023 Have You Recently Traveled Abroad? No [email or web address] Information not available 04/15/2022 Sex: Unknown Functional Status Question Answer Note LastModified by Organizat ion Details LastModified Time Do you use any illicit or recreational drugs? No Information not available 04/15/2022 Do you or have you ever used any other forms of tobacco or nicotine? No [email or web address] Information not available 04/15/2022 What is your level of alcohol consumption? None Information not available 07/27/2023 Mental Status None recorded. Family History Relationship Description Onset Age of this Age Resolved Age Notes LastModified by Organization Details LastModified Time Father No current problems or disability [email or web address] Not available 03/25 13:55:09 Mother No current problems or disability [email or web address] Not available 03/25 13:55:09 Medical History No [...] SNOMED-CT Code Diagnosis ICD10 Code Diagnosis Note [id number] [facility] [facility] [address] [place] [address] 02/02/2020 17:17:40 02/02/2020 19:32:47 [id number] [place] [address] 03/05/2021 13:04:26 03/05/2021 15:16:50 [id number] [address] [place] [address] 06/16/2020 08:07:09 06/16/2020 08:38:19 [id number] [address] [place] [address] 03/26/2021 17:41:19 03/26/2021 18:07:16 [id number] [address] [facility] [place] [address] 08/26/2020 16:53:42 08/26/2020 18:58:42 [id number] [address] [facility] [place] [address] 06/13/2020 12:47:13 06/13/2020 13:30:15 [id number] [address] [facility] [place] [address] 07/27/2020 08:49:35 07/27/2020 11:19:22 [id number] KIM SOLORZANO [address] [facility] [place] [address] 04/15/2022 12:52:06 04/15/2022 15:14:55 Inflammation of sacroiliac joint 66682830 M46.1 Urgent conrad ajay to urinate 45576938 R39.15 Dental abscess [id number] K04.7 [id number] KIM SOLORZANO [address] [facility] [place] [address] 07/27/2023 15:21:02 07/27/2023 15:35:00 Hordeolum externum of lower eyelid of left eye 9345315997 31574 H00.025 Based on your presentati on and [...] than 2 weeks. Thank you for using [facility] today, please feel free to contact us with any questions or concerns. Health Concerns Section Related Observation LastModified by Organization Detai ls LastModified Time None Recorded Concern Status LastModified by Organization Details LastModified Time None Recorded Advance Directives Directive None Recorded Payers Insurance Date Sequence Insurance Name Policy Number Policy Winslow Covered Member ID Winslow Member ID Guarantor Name 07/27/2023 1 [facility] ([facility]) [id number] Cas Malcolm [id number] Francesca Malcolm Notes Date Note Type [...] surgery. ]KIM Cage [address] [place], [address], [place] - [facility] 04/15/2022 22:49:31 4 text/html 68 y/o female here with L lower eyelid swelling starting yesterday. A little tender, no eye pain or drainage KIM Luna [address] [place], [address], [place] - [facility] 07/27/2023 15:35:21 OBGyn Episode No OBEpisode recorded.
[2024-08-17 13:23] LABS: MANUAL DIFF FLAG NO
[2024-08-17 13:38] LABS: Basophils Absolute Auto 0.1 X10*3/uL (0.0-0.2); Basophils Percent Auto 0.8 % (0-2); Eosinophils Absolute Auto 0.1 X10*3/uL (0.0-0.4); Eosinophils Percent Auto 1.5 % (0-4); Hematocrit 42.9 % (37.0-47.0); Hemoglobin 14.4 g/dl (12.0-16.0); Imm Gran Abs Auto 0.02 X10*3/uL (0.00-0.03); Imm Gran Pct Auto 0.3 % (0.0-0.4); Lymphocytes Absolute Auto 2.4 X10*3/uL (1.2-4.9); Lymphocytes Percent Auto 39.4 % (20-40); Mean Corpuscular HGB Conc 33.6 g/dl (31.0-35.0); Mean Corpuscular Hemoglobin 29.4 pg (27.0-33.0); Mean Corpuscular Volume 87.7 fL (80.0-98.0); Mean Platelet Volume 11.1 fL (9.4-12.3); Monocytes Absolute Auto 0.6 X10*3/uL (0.1-1.2); Monocytes Percent Auto 9.7 % (2-11); Neutrophils Absolute Auto 2.9 x10*3/uL (2.0-8.3); Neutrophils Percent Auto 48.3 % (45-73); Platelet Count 232 X10*3/uL (160-400); Red Blood Count 4.89 X10*6/uL (4.20-5.50)
[2024-08-17 13:43] LABS: Estimated Average Glucose 151 mg/dL; Hemoglobin A1C 195.6762 umol/L; Hemoglobin A1c % 6.9 % (<6.0); Total Hemoglobin (HGBA1C) 3749.7918 umol/L
[2024-08-17 13:54] LABS: Microalbum/Creatinine Ratio Ur 25.7 ug/mg cr (<30)
[2024-08-17 13:57] LABS: Alanine Aminotransferase 42 U/L (0-31); Albumin Level 4.4 g/dL (3.5-5.0); Alkaline Phosphatase 88 U/L (39-117); Anion Gap 10 (12-20); Aspartate Amino Transferase 29 U/L (5-31); Bilirubin Total 0.5 mg/dL (0.0-1.0); Blood Urea Nitrogen 20 mg/dL (9-16); Calcium 9.4 mg/dL (8.4-10.2); Carbon Dioxide 24 mmol/L (22-29); Chloride 109 mmol/L (96-108); Cholesterol 168 mg/dL (<200); Estimated Glomerular Filt Rate > 60; Glucose Fasting 118 mg/dL (60-99); HDL Cholesterol 48 mg/dL (>40); LDL Cholesterol Calculated 100 mg/dL (<100); Potassium 4.3 mmol/L (3.3-5.1); Sodium 139 mmol/L (135-145); Total Protein 7.2 g/dL (6.5-8.0); Triglycerides 102 mg/dL (<150)
== END 2024-08-17 09:40 | disposition home or self-care (01) ==
LOC: HO.HMGCLDS 09:39
PROVIDERS: PCP Internal Medicine; Visit Provider Internal Medicine
DX: E11.9 Type 2 diabetes mellitus without complications (principal); E78.5 Hyperlipidemia, unspecified
CPT/HCPCS: 36415; 80053; 80061; 82043; 82570; 83036; 85025

== ENCOUNTER 2024-08-18 09:32 | Outpatient (AMB) | payer MEDICARE, SELFPAY ==
[2024-08-18 09:36] VITALS: BP 122/68; PULSE 88; RESP 18; TEMP 36.7; O2SAT 97; BMI 37.6
--- NOTE | 2024-08-18 09:36 | MHC.PC.OV ---
Vital Signs 08/18/24 09:36 Height 5 ft 1 in Weight 199 lb BMI 37.6 BP 122/68 Blood Pressure Location Lt brachial Position Sitting Respiration 18 Pulse 88 Pulse Source Pulse Oximeter Temp 98.0 F Temp Source Oral Pulse Oximetry (%) 97 Oxygen Delivery Method Room Air Intake Visit Reasons: 3m follow up Intake Note: Pt is here today for 3 months follow up visit. Allergies cat dander [CAT] Allergy (Unknown, Unverified 08/18/24 09:54) ITCHY,SNEEZY Medication List - Last Reconciled 08/18/24 by Dorene Black MD ascorbate calcium (vitamin C) 500 mg PO DAILY aspirin 81 mg PO DAILY cholecalciferol (vitamin D3) 25 mcg PO DAILY cinnamon bark (Cinnamon) 500 mg PO DAILY estradiol 0.01%(0.1mg/gram) 1 g vaginal 2XW famotidine (Pepcid) 40 mg PO BEDTIME lancets (OneTouch Delica Plus Lancet) Test blood sugar once a day magnesium chloride PO mecobalamin (vitamin B12) PO metformin ER 1,500 mg (2 x 750 mg) PO DAILY Myrbetriq ER (mirabegron) 50 mg PO DAILY NS OneTouch Verio Flex meter (blood-glucose meter) As directed NS OneTouch Verio test strips (blood sugar diagnostic) test blood sugar once a day NS rosuvastatin (Crestor) 5 mg PO DAILY tirzepatide (Mounjaro) 2.5 mg (0.5 mL) subcut QWEEK vitamin E acetate PO Tobacco use date assessed: 06/16/24 Dental Screening Dental Screen Date: 05/19/24 HPI 3m follow up HPI Details Patient presents for the follow-up of type 2 diabetes hyperlipidemia. Patient complains of persistent epigastric abdominal discomfort in the heartburn after eating spicy foods. She denies dysphagia odynophagia. Patient reports intermittent constipation but has been taking stool softener. Patient lost 3 lb on Mounjaro but reports improved glycemic control. [facility] Medical History (Updated 08/18/24 @ 16:06 by Dorene Black MD) Annual physical exam Anxiety Right knee meniscal tear Left hand paresthesia Cervical radiculopathy due to degenerative joint disease of spine Gestational diabetes mellitus Surgical History (Updated 08/18/24 @ 16:07 by Dorene Black MD) H/O colonoscopy Family History Father Stomach cancer Mother No problems noted. Sister No problems noted. Social History Housing: House Patient Tobacco Use Status: Former Tobacco user Years Smoked: 15 yrs e-Cigarette/Vaping Use: Never Used service: No Current occupational status: employed Cognitive needs: No Hearing needs: No Vision needs: Yes Questionnaire Thrive Questionnaire Date Thrive assessed: 05/19/24 I am a: Patient What is your living situation today?: I have a steady place to live Within the past 12 months, did the food you bought not last and you didn't have the money to get more?: Never true Within the past 12 months, did you worry whether your food would run out before you got money to buy more?: Never true Do you have trouble paying for medicines?: No Do you have trouble getting transportation to medical appointments?: No Do you have trouble paying your heating and electricity bill?: No Do you have trouble taking care of your child, family member or friend?: No Do you have trouble with day-to-day activities such as bathing, preparing meals, shopping, managing finances, etc.?: No Are you currently unemployed and looking for a job?: No Are you interested in more education?: No Currently or been in a relationship where the following occur: No concerns reported THRIVE Score: 0 LOLIS-7 AMB Questionnaire LOLIS-7 Date LOLIS - 7 assessed: 05/19/24 Source: Developed by Drs. Viktor Becker, Anne-Marie Dahl, Carlo Woods and colleagues, with an educational radha from [employer]. Review of Systems Const All systems reviewed & are unremarkable except as noted in HPI and below Eyes Reports no additional complaints ENT Reports no additional complaints Card Reports no additional complaints Resp Reports no additional complaints GI Reports no additional complaints Reports no additional complaints Physical exam (Primary Care) Vital Signs: Last Vital Signs Temp 98.0 F 08/18/24 09:36 Pulse 88 08/18/24 09:36 Resp 18 08/18/24 09:36 BP 122/68 08/18/24 09:36 Pulse Ox 97 08/18/24 09:36 Oxygen Delivery Method Room Air 08/18/24 09:36 BMI result Body Mass Index 37.6 Tobacco/Smoking Status: Tobacco use Status Tobacco use date assessed 06/16/24 08/18/24 09:36 Patient Tobacco Use Status Former Tobacco user 08/18/24 09:36 e-Cigarette/Vaping Use Never Used 08/18/24 09:36 Thrive Assessment: Date of Thrive Assessment Date Thrive assessed 05/19/24 08/18/24 09:36 Currently or been in a relationship where the following occur: No concerns reported Const General: no acute distress HENMT Head: Yes normal to inspection Mouth: Normal oral and palatal mucosa present Eyes General: appearance normal, both eyes and all related structures Neck Neck: Yes supple Resp Effort & Inspection: normal respiratory effort Auscultation: clear to auscultation bilaterally Cardio Rhythm: regular rhythm Heart sounds: S1 normal heart sound present and S2 normal heart sound present GI Inspection: Yes normal to inspection Palpation (GI): Soft to palpation Percussion: Yes normal to percussion Auscultation: normal bowel sounds Immunizations pneumoc 20-bailey conj-dip cr(PF) 0.5 mL IM syringe Performing Provider: Dorene Black MD Performing Location: [facility] Administered by: JOSY Argueta on 08/18/24 11:39 Dose Route Admin Location Dispensed Lot Number Expiration Date [employer] Feather Separator 0.5 mL IM Left Deltoid 0.5 mL [id number] 06/21/25 9976-3762-21 AccumetricsETH/PFIZER VIS Given Date VIS Provided VIS Publication Date 08/18/24 Single Vaccine 21 Eligibility Eligibility Date Funding Source Not [facility] Eligible 08/18/24 Private Coding Level of Care Code Est Pt Level 4 (27952) Diagnoses Hyperlipidemia E78.5 DM type 2 (diabetes mellitus, type 2) E11.9 GERD (gastroesophageal reflux disease) K21.9 Assessment & Plan Assessment & Plan (1) Hyperlipidemia: Code(s): E78.5 - Hyperlipidemia, unspecified Category: Medical Plan: Continue rosuvastatin (2) DM type 2 (diabetes mellitus, type 2): Code(s): E11.9 - Type 2 diabetes mellitus without complications Category: Medical Plan: A1c is down to 6.9 from 7.6. ADA diet increase physical activity weight loss discussed with the patient. She will continue onev tabl of metformin and Mounjaro at current dose. Patient will follow-up in 3 months with a fasting labs before (3) GERD (gastroesophageal reflux disease): Comment: EGD 09/2022 Dr. Alvarez small hiatal hernia, reflux esophagitis Code(s): K21.9 - Gastro-esophageal reflux disease without esophagitis Category: Medical Plan: Pepcid 40 mg daily will be started anti GERD diet discussed with the patient. Orders: Orders Comprehensive Marissa. Panel Fast 3 Months E11.9 - Type 2 diabetes mellitus without complications, E78.5 - Hyperlipidemia, unspecified Lipid Panel 3 Months E11.9 - Type 2 diabetes mellitus without complications, E78.5 - Hyperlipidemia, unspecified TSH reflex Free T4 3 Months E11.9 - Type 2 diabetes mellitus without complications, E78.5 - Hyperlipidemia, unspecified Hemoglobin A1c 3 Months E11.9 - Type 2 diabetes mellitus without complications, E78.5 - Hyperlipidemia, unspecified Vitamin B12 and Folate 3 Months E11.9 - Type 2 diabetes mellitus without complications, E78.5 - Hyperlipidemia, unspecified Pneumococcal 20 Immunization Today Z23 - Encounter for immunization Vitamin D 25-OH Total 3 Months E11.9 - Type 2 diabetes mellitus without complications, E78.5 - Hyperlipidemia, unspecified Medications: New famotidine (Pepcid) 40 mg PO BEDTIME 90 tabs 1RF
== END 2024-08-18 11:45 | disposition home or self-care (01) ==
LOC: HO.HMCC 09:32
PROVIDERS: PCP Internal Medicine; Visit Provider Internal Medicine
DX: E78.5 Hyperlipidemia, unspecified (principal); E11.9 Type 2 diabetes mellitus without complications; K21.9 Gastro-esophageal reflux disease without esophagitis; Z23 Encounter for immunization

== ENCOUNTER → 2024-08-18 09:32 | Outpatient (BNVA) | payer MEDICARE, SELFPAY | PROVIDERS: PCP Internal Medicine; Visit Provider Internal Medicine | DX: Z23 Encounter for immunization (principal); E78.5 Hyperlipidemia, unspecified; E11.9 Type 2 diabetes mellitus without complications; K21.9 Gastro-esophageal reflux disease without esophagitis | CPT/HCPCS: 90471; 90677; 99212 ==

== ENCOUNTER 2024-10-12 08:07 | Outpatient (REF) | payer MEDICARE, SELFPAY ==
--- NOTE | ~2024-10-12 | XR_ITS ---
EXAMINATION: XR KNEE 3 VIEWS LEFT HISTORY: M25.569 - Pain in unspecified knee COMPARISON: There are no prior studies available for comparison. FINDINGS: Standing AP views of both knees and additional lateral and sunrise patellar views of the left knee are submitted. Osseous mineralization is normal. There is no fracture or dislocation. There is mild narrowing of the medial compartment. A calcification adjacent to the medial femoral condyle may be new related to the medial collateral ligament. There is a moderate suprapatellar joint effusion. The patient is status post right total knee arthroplasty. XR/XR knee LT 3V IMPRESSION: Mild narrowing of the medial compartment. Probable calcification of the origin of the medial collateral ligament. Moderate joint effusion. Electronically signed by: Viktor Rubin MD 10/12/2024 01:45 PM EDT
--- OUTSIDE RECORDS SUMMARY | 2024-10-12 08:12 | XMS_ITS | Clinical Summary ---
Author Organization [facility] Address [address] [place] [address] Phone Care Team Providers Care Heater Helper Name Role Phone Dorene Black MD Primary Care Provider [phone] Allergies No known active allergies Medications aspirin 81 mg chewable tablet Take 81 mg by mouth daily. Active bromfenac (BROMDAY) 0.09 % ophthalmic solutionIndicat ions:Combined forms of age-related cataract of left eye Place 1 drop into the left eye 2 (two) times a day. Start 3 days pre-op 1.7 mL 1 06/20/2022 Active gatifloxacin (ZYMAXID) 0.5 % DropIndications :Combined forms of age-related cataract of right eye Place 1 drop into the right eye 4 (four) times a day. Start 3 days prior to surgery 2.5 mL 3 01/23/2023 Active prednisoLONE acetate (PRED FORTE) 1 % ophthalmic suspensionIndic ations:Combined forms of age-related cataract of right eye Place 1 drop into the right eye 4 (four) times a day. Start after surgery 5 mL 3 01/23/2023 Active ketorolac (ACULAR) 0.5 % ophthalmic solutionIndicat ions:Combined forms of age-related cataract of right eye Place 1 drop into the right eye 4 (four) times a day. Start 3 days prior to surgery. 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 Not on lola e 08/04/2022 Are you concerned about learning? Not on file 08/04/2022 No 08/04/2022 No 08/04/2022 Digital Access Answer Date Recorded No 08/14/2022 No 08/14/2022 No 08/14/2022 Reliable internet access at home? Not on file 08/14/2022 Device with a working camera? Not on file Comments Unknown Sex and Gender Information Value Date Recorded Sex Assigned at Not on file Legal Sex Female 6:13 PM EST Gender Identity Not on file Sexual Orientation Not on file Last Filed Vital Signs Vital Sign Reading Time Taken Comments Blood Pressure 143/83 02/10/2023 11:58 AM EST Pulse 66 02/10/2023 11:58 AM EST Temperature 36.3 C (97.3 F) 02/10/2023 11:14 AM EST Respiratory Rate 20 02/10/2023 11:58 AM EST Oxygen Saturation 98% 02/10/2023 11:58 AM EST Inhaled Oxygen Concentration - - Weight - - Height - - Body Mass Index - - Plan of Treatment Health Maintenance Due Date Last Done Comments Adult Td,Tdap Booster 1957 LIPID PANEL 1957 DEPRESSION SCREENING 1969 SMOKING Hx and SMOKELESS TOB ACCO SCREENING 1970 HEPATITIS C SCREENING 1975 COLOGUARD 2002 COLONOSCOPY 2002 COLORECTAL CANCER SCREENING 2002 FIT TEST 2002 FOBT 2002 SIGMOIDOSCOPY 2002 VIRTUAL COLONOSCOPY 2002 PNEUMOCOCCAL VACCINES (50+ y ears) (1 of 1 - PCV) 2007 ZOSTER VACCINES (1 of 2) 2007 MAMMOGRAM 03/11/2009 03/11/2007 OSTEOPOROSIS SCREENING INITI AL (ONE-TIME) 2022 COVID-19 VACCINE ( - 2023-2 5 season) 2023 RSV VACCINE (1 - 1-dose 75+ series) 02/22/2032 HEPATITIS A VACCINES Aged Out No long er eligible based on patient's age to complete this topic HIB VACCINES Aged Out No longer eligi ble based on patient's age to complete this topic MENINGOCOCCAL VACCINES (ACWY) Aged Out No longer eligible based on patient's age to complete this topic MENINGOCOCCAL VACCINES (B) Aged Out N o longer eligible based on patient's age to complete this topic Medical Devices Implanted Type Area Promotions Executive Producer Device Identifier Shelf Expiration Date Model / Serial / Lot Lens Intraocular Sofport Li61ao 23.0d-08/26/2022 Implanted: 023 (Quantity not on file) Left: Eye BAUSC 02/20/2027 [id number] / [id number] / Lens Intraocular Sofport Li61ao 23.0d-02/10/2023 Implanted: 023 (Quantity not on file) Right: Eye USC 10/22/2027 [id number] 23.0D / / Procedures Procedure Name Priority Date/Time Associated Diagnosis Comments BI MAMMOGRAM SCREENING Routine 03/11/2007 11:54 AM EST from Last 3 Months or Most Recently Relevant to Health Maintenance Results * Mammogram Screening (03/11/2007 11:54 AM EST) Anatomical Region Laterality Modality Breast Left, Breast Right, Breast Bilateral Mammography 03/11/2007 11:5 4 AM EST Narrative 03/11/2007 11:54 AM EST Exam Number: [id number] Report Status: Final Type: DIGITAL SCREENING MAMMO w/ CAD Date/Time: 03/11/2007 11:54 Exam Code: DX420/SM2 Ordering Provider: ROSALIE COBOS M.D. REPORT: HISTORY: SCREENING. NO CURRENT COMPLAINTS. Full Field Digital Mammography was used to obtain images and Computer Aided Detection was used to aid in interpretation. The patient was sent a letter with the results of the exam and recommendations. Comparison is made to films from 27-May-2003. There is no significant interval change. Bilateral Breast Findings: The breasts are heterogeneously dense (51% - 75% fibroglandular). This may lower the sensitivity of mammography. No significant masses, calcifications or other abnormalities are seen. A core biopsy clip is noted on the left. IMPRESSION: BILATERAL BREASTS - Category 1 Negative, no evidence of malignancy. Normal interval follow-up is recommended in 12 months. OVERALL ASSESSMENT - NEGATIVE END OF IMPRESSION RADIOLOGISTS: SIGNATURES: NICKO MAMMO NANI MAHARAJ AYODALE, MD(R) CHRIS GRIJALVA MD(T) Procedure Note Sys, Conversion Provider Not In - 08/15/2014 Exam Number: [id number] Report Status: Final Type: DIGITAL SCREENING MAMMO w/ CAD Date/Time: 03/11/2007 11:54 Exam Code: DX420/SM2 Ordering Provider: ROSALIE COBOS M.D. REPORT: HISTORY: SCREENING. NO CURRENT COMPLAINTS. Full Field Digital Mammography was used to obtain images andComputer Aided Detection was used to aid in interpretation. The patient was sent a letter with the results of the exam and recommendations. Comparison is made to films from 27-May-2003. There is nosignificant interval change. Bilateral Breast Findings: The breasts are heterogeneously dense (51% - 75% fibroglandular).This may lower the sensitivity of mammography. No significant masses, calcifications or other abnormalities are seen. A core biopsy clipis noted on the left. IMPRESSION: BILATERAL BREASTS - Category 1 Negative, no evidence of malignancy. Normal interval follow-up is recommended in 12 months. OVERALL ASSESSMENT - NEGATIVE END OF IMPRESSION RADIOLOGISTS: SIGNATURES: ROGER MAHARAJO NANI MAHARAJ AYODALE, MD(R) CHRIS GRIJALVA MD(T) Rosalie Cobos MD IMG MG EXAMS Final Result from Last 3 Months or Most Recently Relevant to Health Maintenance Insurance [facility] Care Teams Heater Helper Relationship Specialty Start Date End Date Dorene Black MD [address] [place] [address] PCP - General 12/06/21 Additional Source Comments The information contained in this document represents components of the legal health record. It is not the complete legal health record.[facility]
--- OUTSIDE RECORDS SUMMARY | 2024-10-12 08:12 | XMS_ITS | Data Portability ---
Author Organization [facility], [address] Address [address] [place] [address] Assessment No assessment recorded. Plan of Treatment Reminders Order Date Submit Date Provider Last Modified By Organization Details Last Modified Time Details Appointments None recorded. Lab urinalysis, dipstick 2022 023 [email or web address] [address], [address] [place], [address], 3 15:13:27 culture, urine 2022 023 GRA[facility], [address] [place] [address], [place], [address], 3 06:07:26 Referral None recorded. Procedures None recorded. Surgeries None recorded. Imaging None recorded. Medication Orders meloxicam 7.5 mg tablet 2022 023 [facility]/Pharmacy #[id number], [phone] [place], [address], 3 15:13:29 cefuroxime axetil 500 mg tablet 2022 023 [email or web address] [facility]/Pharmacy #[id number], [phone] [place], [address], 3 22:32:41 Patient TargetsNo targets recorded. Patient Instructions Encounter Date Encounter Id Patient Instructions Last Modified By Organization Details Last Modified Time 04/15/2022 [id number] sacroiliac pain: exercises [email or web address] Not available 04/15/2022 15:13:26 sacroiliac joint pain: care instructions Not available 04/15/2022 15:13:26 Urge Incontinenc e: Care Instructions [email or web address] Not available 04/15/2022 15:13:26 You are going [...] antibiotic was prescribed. Thank you for using [employer] - please don't hesistate to call our office if you have any questions or concerns. [email or web address] Not available 04/15/2022 15:14:30 Reason for Referral None Reported. Results Created Date Observation Date Name Description Value Unit Range Abnormal Flag Note LastModifiedBy Organization Detail LastModifiedTime 04/15/1904/17/2022 URINE CULTU REMARY NE urine culture, routine FINAL REPORT Not Available [facility] ([facility]) [address] [place], [address], 04/17/2022 06:07:26 04/15/19 23 04/17/2022 URINE CULTU REMARY NE result 1 NO GROWTH Not Available [facility] ([facility]) [address] [place], [address], 04/17/2022 06:07:26 04/15/19 23 04/15/2022 urina lysis , dipst ick Unknown Analyte Normal = light yellow Not Available [address] [place], [address], 04/15/2022 13:55:58 04/15/1904/15/2022 urina lysis , dipst ick Unknown Analyte Yellow Not Available [address] [place] [address] [address] [place], [address], 04/15/2022 13:55:58 04/15/1904/15/2022 urina lysis , dipst ick Unknown Analyte Normal = clear Not Available [address] [place], [address], 04/15/2022 13:55:58 04/15/1904/15/2022 urina lysis , dipst ick Unknown Analyte Clear Not Available [address] [place] [address] [address] [place], [address], 04/15/2022 13:55:58 04/15/1904/15/2022 urina lysis , dipst ick Unknown Analyte Normal = negati ve Not Available [address] [place], [address], 04/15/2022 13:55:58 04/15/1904/15/2022 urina lysis , dipst ick Unknown Analyte Negati ve Not Available [address] [place], [address], 04/15/2022 13:55:58 04/15/1904/15/2022 urina lysis , dipst ick Unknown Analyte Normal = Negati ve Not Available [address] [place], [address], 04/15/2022 13:55:58 04/15/1904/15/2022 urina lysis , dipst ick Unknown Analyte Negati ve Not Available [address] [place], [address], 04/15/2022 13:55:58 04/15/1904/15/2022 urina lysis , dipst ick Unknown Analyte Normal = Negati ve Not Available [address] [place], [address], 04/15/2022 13:55:58 04/15/1904/15/2022 urina lysis , dipst ick Unknown Analyte Negati ve Not Available [address] [place], [address], 04/15/2022 13:55:58 04/15/1904/15/2022 urina lysis , dipst ick Unknown Analyte Normal = 1.010, 1.015, 1.020 Not Available [address] [place], [address], 04/15/2022 13:55:58 04/15/1904/15/2022 urina lysis , dipst ick Unknown Analyte 1.015 Not Available [facility] [address] [place], [address], 04/15/2022 13:55:58 04/15/1904/15/2022 urina lysis , dipst ick Unknown Analyte Normal = Negati ve Not Available [address] [place], [address], 04/15/2022 13:55:58 04/15/1904/15/2022 urina lysis , dipst ick Unknown Analyte Trace- intact Not Available [address] [place], [address], 04/15/2022 13:55:58 04/15/1904/15/2022 urina lysis , dipst ick Unknown Analyte Normal = 6.5, 7.0, 7.5, 8.0 Not Available [address] [place], [address], 04/15/2022 13:55:58 04/15/1904/15/2022 urina lysis , dipst ick Unknown Analyte 5.0 Not Available _ [facility] [address] [place], [address], 04/15/2022 13:55:58 04/15/1904/15/2022 urina lysis , dipst ick Unknown Analyte Normal = Negati ve Not Available [address] [place], [address], 04/15/2022 13:55:58 04/15/1904/15/2022 urina lysis , dipst ick Unknown Analyte Negati ve Not Available [address] [place], [address], 04/15/2022 13:55:58 04/15/1904/15/2022 urina lysis , dipst ick Unknown Analyte Normal = 0.2, 1.0 Not Available [address] [place], [address], 04/15/2022 13:55:58 04/15/1904/15/2022 urina lysis , dipst ick Unknown Analyte 0.2 E.U./d L Not Available [address] [place], [address], 04/15/2022 13:55:58 04/15/1904/15/2022 urina lysis , dipst ick Unknown Analyte Normal = Negati ve Not Available [address] [place], [address], 04/15/2022 13:55:58 04/15/1904/15/2022 urina lysis , dipst ick Unknown Analyte Negati ve Not Available [address] [place], [address], 04/15/2022 13:55:58 04/15/1904/15/2022 urina lysis , dipst ick Unknown Analyte Normal = Negati ve Not Available [address] [place], [address], 04/15/2022 13:55:58 04/15/1904/15/2022 urina lysis , dipst ick Unknown Analyte Negati ve Not Available [address] [place], [address], 04/15/2022 13:55:58 Result Notes None recorded. Problems Name Problem SNOMED Code Status Onset Date Resolution Date Notes Provider Name and Address Organization Details Recorded Time Hyperlipidemia 35783819 Active 2022 KIM Manjarerz - [facility] 13:54:39 Problem Notes None [...] Updated DateTime 04/15/2022 146/76 mm[Hg] KIM SOLORZANO [address] [place] [address] [facility] [place], [address], [place] - [employer] [facility] 04/15/2022 15:14:46 Date Recorded Body height Body mass index (BMI) Body weight Body temperature Heart rate Respiratory rate Oxygen saturation Oxygen saturation in Arterial blood by Pulse oximetry Systolic And Diastolic Provider Name and Address Organization Details Last Updated DateTime 3 152.4 cm 37.3 kg/m2 39848.1 4 g 98.3 [degF] 71 /min 18 [...] Updated DateTime 4 152.4 cm 38.7 kg/m2 18642.2 9 g 98.5 [degF] 20 /min 68 /min 98 % 98 % 147/82 mm[Hg] Jazmyne Whitten [facility] 15:27:59 Social History Question Answer Notes LastModified [...] 07/27/2023 Have You Recently Traveled Abroad? No [email or web address] Information not available 04/15/2022 Sex: Unknown Functional Status Question Answer Note LastModified by Organizat ion Details LastModified Time Do you use any illicit or recreational drugs? No [email or web address] Information not available 04/15/2022 Do you or have you ever used any other forms of tobacco or nicotine? No [email or web address] Information not available 04/15/2022 What is your level of alcohol consumption? None Information not available 07/27/2023 Mental Status None recorded. Family History Relationship Description Onset Age of this Age Resolved Age Notes LastModified by Organization Details LastModified Time Father No current problems or disability [email or web address] Not available 03/25 13:55:09 Mother No current problems or disability [email or web address] Not available 03/25 13:55:09 Medical History No [...] SNOMED-CT Code Diagnosis ICD10 Code Diagnosis Note [id number] [facility] [place] [address] 02/02/2020 17:17:40 02/02/2020 19:32:47 [id number] [facility] [place] [address] 03/05/2021 13:04:26 03/05/2021 15:16:50 [id number] [address] [facility] [place] [address] 06/16/2020 08:07:09 06/16/2020 08:38:19 [id number] [address] [facility] [place] [address] 03/26/2021 17:41:19 03/26/2021 18:07:16 [id number] [address] [place] [address] 08/26/2020 16:53:42 08/26/2020 18:58:42 [id number] [address] [place] [address] 06/13/2020 12:47:13 06/13/2020 13:30:15 [id number] [address] [place] [address] 07/27/2020 08:49:35 07/27/2020 11:19:22 [id number] KIM SOLORZANO [address] [place] [address] 04/15/2022 12:52:06 04/15/2022 15:14:55 Inflammation of sacroiliac joint 66670375 M46.1 Urgent conrad ajay to urinate 48090081 R39.15 Dental abscess 753966055 K04.7 [id number] KIM SOLORZANO [address] [place] [address] 07/27/2023 15:21:02 07/27/2023 15:35:00 Hordeolum externum of lower eyelid of left eye 5088560296 84657 H00.025 Based on your presentati on and [...] than 2 weeks. Thank you for using [employer] today, please feel free to contact us with any questions or concerns. Health Concerns Section Related Observation LastModified by Organization Detai ls LastModified Time None Recorded Concern Status LastModified by Organization Details LastModified Time None Recorded Advance Directives Directive None Recorded Payers Insurance Date Sequence Insurance Name Policy Number Policy Winslow Covered Member ID Winsolw Member ID Guarantor Name 07/27/2023 1 [place] [facility] (O) [id number] Cas Malcolm [id number] Francesca Malcolm Notes Date Note Type [...] surgery. ]KIM Cage [address] [place], [address], [place] [facility] 04/15/2022 22:49:31 4 text/html 68 y/o female here with L lower eyelid swelling starting yesterday. A little tender, no eye pain or drainage KIM Luna [address] [place], [address], [place] [facility] 07/27/2023 15:35:21 OBGyn Episode No OBEpisode recorded.
--- OUTSIDE RECORDS SUMMARY | 2024-10-12 08:12 | XMS_ITS | Patient Health Record ---
Author Organization [facility] [place] [place] Address [address] [place] [address] Care Team Providers Care Toaster Element Repairer Name Role Phone Dorene Black MD Primary Care Provider Neena Randall Unavailable [phone] Allergies No Known Allergies Results Component Value Reference Range Notes HEMOGLOBIN A1C (GLYCOHEMOGLO BIN) Reviewed date:08/26/2024 08:38:30 AM Interpretation: Performing Lab: Notes/Report: HEMOGLOBIN A1C % (HH) 6.8 Reason For Referral No Information Medications Medication SIG (Take, Route, Frequency, Duration) Notes Start Date End Date Status metFORMIN HCl 750 MG 1 tablet with a july l Orally Once a day Active Atorvastatin Calcium 10 MG 1/2 tablet Or ally Once a day Active Aspirin 81 MG 1 tablet Orally Once a day Active Mounjaro 2.5 MG/0.5ML as directed Subcut aneous once a week Active Social History Tobacco Use: Social History Observation Description Date Details (start date - stop date) Never Smoker NA - NA Tobacco use other than smoking: Question Answer Notes Are you an other tobacco user? No Tobacco Control (Standard) Question Answer Notes Tobacco use: Nonsmoker Additional Findings: Tobacco non-user Current no nsmoker AUDIT-C (Standard) Question Answer Notes Did you have a drink contain ing alcohol in the past year? Yes How often did you have a dri nk containing alcohol in the past year? Declined to specify (0 point) How many drinks did you have on a typical day when you were drinking in the past year? Declined to specify (0 point) How often did you have six o r more drinks on one occasion in the past year? Declined to specify (0 point) Points 0 Interpretation Negative Problems Problem Type SNOMED Code ICD Code Onset Dates Problem Status W/U Status Risk Notes Problem Acquired hammer toe of left foot (1189498188965 103) Other hammer toe(s) (acquired), left foot (M20.42) Active confirmed Problem Arthritis of joint of lesser toe, left (M19.072) Active confirmed Vital Signs Blood pressure diastolic 65 mm Hg 08/26/2024 Height 5ft 1in in 08/26/2024 Blood pressure systolic 128 mm Hg 08/26/2024 Weight 195 lbs 08/26/2024 BMI 36.84 kg/m2 08/26/2024 Encounters Encounter [facility] Date [facility] [address] 08/26/2024 Neena Castro Pain in left toe(s) M79.675 ; Other hammer toe(s) (acquired), left foot M20.42 ; Arthritis of joint of lesser toe, left M19.072 and Subluxation of metatarsophalangeal joint of toe, initial encounter S93.149A [facility] [address] 08/26/2024 Neena Castro [address] [address] 08/26/2024 Neena Castro Assessments Encounter Date Diagnosis (ICD Code) Assessment Notes Treatment Notes Treatment Clinical Notes Section Notes 08/26/2024 Pain in left toe(s) (ICD-10 - M79.675) 08/26/2024 Other hammer toe(s) (acquired), left foot (ICD-10 - M20.42) 08/26/2024 Arthritis of joint o f lesser toe, left (ICD-10 - M19.072) 08/26/2024 Subluxation of metatarsophalangeal joint of toe, initial encounter (ICD-10 - S93.149A) Plan Of Treatment Pending Test Test Name Order Date X ray : Foot, left 3V 08/26/2024 Next Appt Details Provider Name:Neena agosto, 11/17/2024 02:00:00 PM, [address] [place] [address], [phone], Insurance Providers Payer Name Payer Address Payer Phone Subscriber Number Group Number Insured Name Patient Relationship to Insured Coverage Start Date Coverage End Date Medicare National [employer] [address] [place] [address] [id number] Francesca Contreras Self - patient is the insured 2 [employer] [address] [place] [address] [id number] 2 Francesca Contreras Self - patient is the insured Medical (General) History Medical History History ICD Code Back,Hip,and Knee pain Cataracts Diabetic type 2 Measles Chicken pox Bone implants/screws Cholesterol Surgical History Surgery Date(Month/Year) knee replacement 12/14 06/1992,05/2001 catarcts 2022
== END 2024-10-12 08:08 | disposition home or self-care (01) ==
LOC: HO.HOSX 08:07
PROVIDERS: Visit Provider Physician Assistant
DX: M17.12 Unilateral primary osteoarthritis, left knee (principal); E11.9 Type 2 diabetes mellitus without complications; M25.562 Pain in left knee; Z96.651 Presence of right artificial knee joint
CPT/HCPCS: 20610; 73562; 99202; J1010; J2003

== ENCOUNTER 2024-10-12 13:30 | Outpatient (AMB) | payer MEDICARE, SELFPAY ==
--- NOTE | 2024-10-12 13:52 | MHC.OFFVIS ---
Vital Signs 10/12/24 13:58 Height 5 ft 1 in Weight 192 lb BMI 36.3 Intake Visit Reasons: New Patient - Left Knee Pain Intake Note: Francesca is a 69 year old female who presents today as a new patient for a evaluation of her left knee pain. Patient reports ongoing pain for about the being of August. She mentions that her pain is on the lateral and anterior aspect of the knee. She also mentions that she had an injury a couple weeks ago when she was trying to clean her bathroom tiles. When she was on her knees she started to reach over the tub and she started to feel popping sensation and pain. Patient notices that her pain is worse when she is bending. Patient reports she has taken Aleve and Tylenol with mild relief. Allergies cat dander (CAT) Allergy (Unknown, Verified 10/12/24 13:56) ITCHY,SNEEZY HPI HPI New Patient - Left Knee Pain: Details: Ms. Contreras is a 69 yo female who presents to the office today for evaluation of left knee pain. She has a past history of a right total knee replacement that was done at [facility] in the past. The pain in the left knee has been present since about august of this year. She reports that she was kneeling on the edge of her tub on the tile reaching over and cleaning the opposite side of the tub. She states that after that event she felt a gradual onset of knee pain and associated popping. She reports the pain is location on the lateral aspect of the knee and is worse with walking and bending. She has had cortisone injections on the opposite knee which had worked well for her prior to her knee replacement. She has tried tylenol with mild relief. [facility] Medical History (Updated 10/12/24 @ 14:35 by Silvina Drummond PA-C) Annual physical exam Anxiety Right knee meniscal tear Left hand paresthesia Cervical radiculopathy due to degenerative joint disease of spine Gestational diabetes mellitus Surgical History (Updated 08/18/24 @ 16:07 by Dorene Black MD) H/O colonoscopy Family History Father Stomach cancer Mother No problems noted. Sister No problems noted. Social History (Updated 10/12/24 @ 13:58 by Kerrie Alva) Housing: House Patient Tobacco Use Status: Former Tobacco user Years Smoked: 15 yrs e-Cigarette/Vaping Use: Never Used service: No Current occupational status: employed Current occupation: Book Keeper Cognitive needs: No Hearing needs: No Vision needs: Yes Review of Systems Const All systems reviewed & are unremarkable except as noted in HPI and below Physical Exam Vital Signs: BMI result Body Mass Index 36.3 Const General: cooperative, healthy appearing and no acute distress Resp Effort & Inspection: normal respiratory effort and able to speak in complete sentences Extrem Other: Left knee normal to inspection. No ecchymosis or erythema. No signs of infection. Lateral joint line tenderness accompanied by lateral patellar tenderness. Full ROM. NVI. Office Procedures AMB Joint Injection/Aspiration Joint Injection/Aspiration Primary Site: left knee Prep: site was prepped using aseptic technique, ethochloride spray was applied and injection warnings given Injected: 40 mg of, DepoMedrol, with 8 mL of (2% plain depo) and in the joint Approach Used: anterolateral Procedure: The patient tolerated the procedure well, but had some pain with the injection and there was some relief with the local anesthesia Coding 23510 - Large joint Procedure code (CPT) selection complete Assessment & Plan Assessment & Plan (1) Osteoarthritis of left knee: Code(s): M17.12 - Unilateral primary osteoarthritis, left knee Category: Medical (2) DM type 2 (diabetes mellitus, type 2): Code(s): E11.9 - Type 2 diabetes mellitus without complications Category: Medical Plan The patient was offered a cortisone injection in the left knee with 40mg of depo. The patient was explained the risk, benefits, and alternatives to receiving this injection. After receiving consent for the injection the patient had the procedure done while in office today. The patient tolerated the procedure well with no complications. Due to the patient?s history of diabetes, they were instructed to monitor their blood glucose level. The patient was informed that they could see a rise in their numbers and if the numbers became too high, they were instructed to call their PCP. The patient was also informed that they could have facial flushing as a side effect of the injection, but this will pass. Follow-up will be PRN, or sooner if needed X-rays obtained in the office today were reviewed by , Silvina Drummond PA-C, and are significant for osteoarthritis. No acute fracture or dislocation. Orders: Orders XR knee LT 3V Today M25.569 - Pain in unspecified knee Coding Level of Care Code New Pt Level 4 (62296) Diagnoses Osteoarthritis of left knee M17.12 DM type 2 (diabetes mellitus, type 2) E11.9 CPT Codes Coding - 08208 Large joint: 25079 - Large joint ([id number])
[2024-10-12 13:58] VITALS: BMI 36.3
== END 2024-10-12 14:27 | disposition home or self-care (01) ==
LOC: HO.HOS 13:31
PROVIDERS: PCP Internal Medicine; Visit Provider Physician Assistant
DX: M17.12 Unilateral primary osteoarthritis, left knee (principal); E11.9 Type 2 diabetes mellitus without complications
CPT/HCPCS: 20610; 99204

== ENCOUNTER → 2024-10-12 13:32 | Outpatient (BNV) | payer MEDICARE, SELFPAY | PROVIDERS: Visit Provider Radiology Diagnostic Radiology | DX: M17.12 Unilateral primary osteoarthritis, left knee (principal) | CPT/HCPCS: 73562 ==

== ENCOUNTER 2024-11-16 09:27 | Outpatient (REF) | payer MEDICARE, SELFPAY ==
--- OUTSIDE RECORDS SUMMARY | 2024-11-10 05:00 | XMS_ITS ---
Author [facility] Address [address] [place] [address] Care Team Providers Care Weather Teacher Name Role Phone Dorene Black MD Primary Care Provider Neena Randall [phone] Encounters Encounter Location Date Provider Diagnosis [address] [address] 11/10/2024 Neena Castro Plan Of Treatment Next Appt Details Provider Name:Neena agosto, 11/17/2024 02:00:00 PM, [address] [place], [address], Progress Notes * Baron CONTRERASOB: (69 yo F)Acc No.[id number]:11/10/2024 Progress Note Patient: Francesca ANSARI Provider: Tonny Castro DPM :1955 A ge:69 Y S ex:Female Date:11/10/2024 Address:[facility] [id number] Pcp:Dorene Black MD Subjective: * Chief Complaints: [...] 0 11/10/2024 Generated for Rocky garrett/Gael/Bernice on: 0 11/16/2024 10:03 AM EDT
--- OUTSIDE RECORDS SUMMARY | 2024-11-16 10:03 | XMS_ITS | Patient Health Record ---
Author Organization [facility] Jorge torres [place] Address [address] [place] [address] Care Team Providers Care Glue Mill Operator Name Role Phone Dorene Black MD Primary Care Provider Neena Randall Unavailable [phone] Allergies No Known Allergies Results Component Value [...] Problem Acquired hammer toe of left foot (6695178312139767) Other hammer toe(s) (acquired), left foot (M20.42) Active confirmed Problem Localized, primary osteoarthritis of the ankle and/or foot (618647600) Arthritis of joint of lesser toe, left (M19.072) Active confirmed Vital Signs Blood pressure diastolic 65 mm Hg 08/26/2024 Height 5ft 1in in 08/26/2024 Blood pressure systolic 128 mm Hg 08/26/2024 Weight 195 lbs 08/26/2024 BMI 36.84 kg/m2 08/26/2024 Encounters Encounter Location Date Provider Diagnosis [address] [address] 08/26/2024 Neena Castro Pain in left toe(s) M79.675 ; Other hammer toe(s) (acquired), left foot M20.42 ; Arthritis of joint of lesser toe, left M19.072 and Subluxation of metatarsophalangeal joint of toe, initial encounter S93.149A [address] [address] 08/26/2024 Neena Castro [address] [address] 08/26/2024 Neena Castro Assessments Encounter Date Diagnosis [...] Provider Name:Neena agosto, 11/17/2024 02:00:00 PM, [address] [facility], [place], [address], Insurance Providers Payer Name Payer Address Payer Phone Subscriber Number Group Number Insured Name Patient Relationship to Insured Coverage Start Date Coverage End Date Medicare National Govt Svcs Inc [address] [place] [address] [id number] Francesca Contreras Self - patient is the insured 2 [employer] Blue Shield [address] [place] [address] [id number] Francesca Contreras Self - patient is the insured Medical (General) History Medical History History ICD Code Back,Hip,and Knee pain Cataracts Diabetic type 2 Measles Chicken pox Bone implants/screws Cholesterol Surgical History Surgery Date(Month/Year) knee replacement 12/14 06/1992,05/2001 catarcts 2022
--- OUTSIDE RECORDS SUMMARY | 2024-11-16 10:03 | XMS_ITS | Clinical Summary ---
Author Organization [facility] Address [address] [place] [address] Phone Care Team Providers Care Reservations Agent Name Role Phone Dorene Black MD Primary Care Provider [phone] Allergies No known active allergies Medications aspirin [...] this topic Medical Devices Implanted Type Area Medical Geneticist Device Identifier Shelf Expiration Date Model / Serial / Lot Lens Intraocular Sofport Li61ao 23.0d-08/26/2022 Implanted: 023 (Quantity not on file) Left: Eye BAUSC 02/20/2027 [id number] / [id number] / Lens Intraocular Sofport Li61ao 23.0d-02/10/2023 Implanted: [...] Narrative 03/11/2007 11:54 AM EST Exam Number: [id number] Report Status: Final Type: DIGITAL SCREENING MAMMO [...] Provider Not In - 08/15/2014 Exam Number: [id number] Report Status: Final Type: DIGITAL SCREENING MAMMO [...] Most Recently Relevant to Health Maintenance Insurance [facility] Care Teams Reservations Agent Relationship Specialty Start Date End Date Dorene Black MD [address] [facility] [place] [address] PCP - General 12/06/21 Additional Source Comments The information contained in this document represents components of the legal health record. It is not the complete legal health record.[facility]
[2024-11-16 13:52] LABS: Hemoglobin A1C 178.7646 umol/L; Total Hemoglobin (HGBA1C) 3856.5948 umol/L
[2024-11-16 14:04] LABS: Microalbum/Creatinine Ratio Ur 26.6 ug/mg cr (<30)
[2024-11-16 14:05] LABS: Alanine Aminotransferase 50 U/L (0-31); Albumin Level 4.4 g/dL (3.5-5.0); Alkaline Phosphatase 88 U/L (39-117); Anion Gap 12 (12-20); Aspartate Amino Transferase 34 U/L (5-31); Blood Urea Nitrogen 13 mg/dL (9-16); Calcium 9.1 mg/dL (8.4-10.2); Carbon Dioxide 23 mmol/L (22-29); Chloride 107 mmol/L (96-108); Cholesterol 191 mg/dL (<200); Estimated Glomerular Filt Rate > 60; HDL Cholesterol 49 mg/dL (>40); Potassium 3.9 mmol/L (3.3-5.1); Sodium 138 mmol/L (135-145); Total Protein 7.4 g/dL (6.5-8.0); Triglycerides 96 mg/dL (<150)
[2024-11-16 14:33] LABS: Folate 11.3 ng/mL (> or = 4.0); Vitamin B12 351 pg/mL (200-900)
== END 2024-11-16 09:28 | disposition home or self-care (01) ==
LOC: HO.HMGCLDS 09:27
PROVIDERS: PCP Internal Medicine; Visit Provider Internal Medicine
DX: E11.9 Type 2 diabetes mellitus without complications (principal); E78.5 Hyperlipidemia, unspecified; Z13.21 Encounter for screening for nutritional disorder
CPT/HCPCS: 36415; 80053; 80061; 82043; 82306; 82570; 82607; 82746; 83036; 84443

== ENCOUNTER 2024-11-17 11:12 | Outpatient (AMB) | payer MEDICARE, SELFPAY ==
--- OUTSIDE RECORDS SUMMARY | 2024-11-10 05:00 | XMS_ITS ---
Author Organization [facility] Address [address] [place] [address] Care Team Providers Care Human Resources Officer Name Role Phone Dorene Black MD Primary Care Provider Neena Randall [phone] Encounters Encounter Location Date Provider Diagnosis [address] [address] 11/10/2024 Neena Castro Plan Of Treatment Next Appt Details Provider Name:Neena agosto, 11/17/2024 02:00:00 PM, [address] [place], [address], Progress Notes * Baron CONTRERASOB: (69 yo F)Acc No.[id number]:11/10/2024 Progress Note Patient: Francesca ANSARI Provider: Tonny Castro DPM :1955 A ge:69 Y S ex:Female Date:11/10/2024 Address:[facility] [id number] Pcp:Dorene Black MD Subjective: * Chief Complaints: * * Medical History: Objective: * Vitals: Assessment: Plan: * Treatment: * Images: * The named appointment provid er may or may not be the originator of this progress note, and it is not deemed complete until electronically signed by the appointment provider. Sign off status: Pending * Provider: Tonny Castro, SUSAN Date: 0 11/10/2024 Generated for Rocky garrett/Gael/Bernice on: 0 11/17/2024 12:07 PM EDT
[2024-11-17 11:15] VITALS: BP 120/66; PULSE 72; RESP 18; TEMP 36.7; O2SAT 97; BMI 35.9
--- NOTE | 2024-11-17 11:15 | MHC.PC.OV ---
Vital Signs 11/17/24 11:15 Height 5 ft 1 in Weight 190 lb 4 oz BMI 35.9 BP 120/66 Blood Pressure Location Lt brachial Position Sitting Respiration 18 Pulse 72 Pulse Source Pulse Oximeter Temp 98.0 F Temp Source Oral Pulse Oximetry (%) 97 Oxygen Delivery Method Room Air Intake Visit Reasons: 3 months f/up Intake Note: Pt is here today for a 3 months follow up visit. Pt states that she has been having issues with constipation. Pt would like to have blood work done for lyme disease as she had a bruise that is gone now. Allergies cat dander (CAT) Allergy (Unknown, Verified 11/17/24 11:20) ITCHY,SNEEZY Medication List - Last Reconciled 11/17/24 by Dorene Black MD ascorbate calcium (vitamin C) 500 mg PO DAILY aspirin 81 mg PO DAILY cholecalciferol (vitamin D3) 25 mcg PO DAILY cinnamon bark (Cinnamon) 500 mg PO DAILY estradiol 0.01%(0.1mg/gram) 1 g vaginal 2XW famotidine (Pepcid) 40 mg PO BEDTIME lancets (OneTouch Delica Plus Lancet) Test blood sugar once a day magnesium PO DAILY magnesium chloride PO mecobalamin (vitamin B12) PO OneTouch Verio Flex meter (blood-glucose meter) As directed NS OneTouch Verio test strips (blood sugar diagnostic) test blood sugar once a day NS rosuvastatin (Crestor) 5 mg PO DAILY tirzepatide (Mounjaro) 2.5 mg (0.5 mL) subcut QWEEK vitamin E acetate PO Tobacco use date assessed: 11/17/24 Fall risk assessment: No Falls in past year Last assessed Fall Risk: 11/17/24 Dental Screening Dental Screen Date: 05/19/24 HPI 3 months f/up HPI Details Pt presents for f/u DM 2, hyperlipid, stable on meds. Patient has stopped taking metformin 3 weeks ago because of the stomach upset. She has been monitoring her fasting blood glucose with the readings between 90-130. Patient is started weight watchers and lost 10 lb since July. She has been tolerating Mounjaro but reports intermittent constipation. [facility] Medical History Annual physical exam Anxiety Right knee meniscal tear Left hand paresthesia Cervical radiculopathy due to degenerative joint disease of spine Gestational diabetes mellitus Surgical History H/O colonoscopy Family History Father Stomach cancer Mother No problems noted. Sister No problems noted. Social History Housing: House Patient Tobacco Use Status: Former Tobacco user Years Smoked: 15 yrs e-Cigarette/Vaping Use: Never Used service: No Current occupational status: employed Current occupation: Book Keeper Cognitive needs: No Hearing needs: No Vision needs: Yes Questionnaire Thrive Questionnaire Date Thrive assessed: 05/19/24 I am a: Patient What is your living situation today?: I have a steady place to live Within the past 12 months, did the food you bought not last and you didn't have the money to get more?: Never true Within the past 12 months, did you worry whether your food would run out before you got money to buy more?: Never true Do you have trouble paying for medicines?: No Do you have trouble getting transportation to medical appointments?: No Do you have trouble paying your heating and electricity bill?: No Do you have trouble taking care of your child, family member or friend?: No Do you have trouble with day-to-day activities such as bathing, preparing meals, shopping, managing finances, etc.?: No Are you currently unemployed and looking for a job?: No Are you interested in more education?: No Currently or been in a relationship where the following occur: No concerns reported THRIVE Score: 0 LOLIS-7 AMB Questionnaire LOLIS-7 Date LOLIS - 7 assessed: 05/19/24 Source: Developed by Drs. Viktor Becker, Anne-Marie Dahl, Carlo Woods and colleagues, with an educational radha from [employer]. Review of Systems Const All systems reviewed & are unremarkable except as noted in HPI and below Eyes Reports no additional complaints ENT Reports no additional complaints Card Reports no additional complaints Resp Reports no additional complaints GI Reports no additional complaints Reports no additional complaints Physical exam (Primary Care) Vital Signs: Last Vital Signs Temp 98.0 F 11/17/24 11:15 Pulse 72 08/27/25 11:15 Resp 18 11/17/24 11:15 BP 120/66 11/17/24 11:15 Pulse Ox 97 11/17/24 11:15 Oxygen Delivery Method Room Air 11/17/24 11:15 BMI result Body Mass Index 35.9 Tobacco/Smoking Status: Tobacco use Status Tobacco use date assessed 11/17/24 11/17/24 11:24 Patient Tobacco Use Status Former Tobacco user 11/17/24 11:15 e-Cigarette/Vaping Use Never Used 11/17/24 11:15 Thrive Assessment: Date of Thrive Assessment Date Thrive assessed 05/19/24 11/17/24 11:15 Currently or been in a relationship where the following occur: No concerns reported Const General: no acute distress HENMT Head: Yes normal to inspection Face and sinus: Yes normal facial exam Mouth: Normal oral and palatal mucosa present Throat: Yes posterior oropharynx normal Eyes General: appearance normal, both eyes and all related structures Resp Effort & Inspection: normal respiratory effort Auscultation: clear to auscultation bilaterally Cardio Rhythm: regular rhythm Heart sounds: S1 normal heart sound present and S2 normal heart sound present GI Inspection: Yes normal to inspection Palpation (GI): Soft to palpation Coding Level of Care Code Est Pt Level 4 (84773) Diagnoses Hyperlipidemia E78.5 DM type 2 (diabetes mellitus, type 2) E11.9 Assessment & Plan Assessment & Plan (1) Hyperlipidemia: Code(s): E78.5 - Hyperlipidemia, unspecified Category: Medical Plan: Continue statin low-cholesterol diet (2) DM type 2 (diabetes mellitus, type 2): Code(s): E11.9 - Type 2 diabetes mellitus without complications Category: Medical Plan: A1c is 6.4. ADA diet regular physical activity weight loss discussed with the patient. She will continue to monitor her blood glucose and the same dose of Mounjaro because of constipation. Patient was advised to increase fiber and fluid intake follow-up in 3 months with a fasting labs before Orders: Orders Comprehensive [place]. Panel Fast 3 Months E11.9 - Type 2 diabetes mellitus without complications, E78.5 - Hyperlipidemia, unspecified Complete Blood Count Auto Diff 3 Months E11.9 - Type 2 diabetes mellitus without complications, E78.5 - Hyperlipidemia, unspecified Lipid Panel 3 Months E11.9 - Type 2 diabetes mellitus without complications, E78.5 - Hyperlipidemia, unspecified Hemoglobin A1c 3 Months E11.9 - Type 2 diabetes mellitus without complications, E78.5 - Hyperlipidemia, unspecified Medications: Discontinued Myrbetriq ER (mirabegron) Discontinued Reason: Doctor's Order 50 mg PO DAILY 30 tabs 1RF NS
--- OUTSIDE RECORDS SUMMARY | 2024-11-17 12:08 | XMS_ITS | Clinical Summary ---
Author Organization [facility] Address [address] [place] [address] Phone Care Team Providers Care Gift Shop Manager Name Role Phone Dorene Black MD Primary Care Provider [phone] Allergies No known active allergies Medications aspirin [...] this topic Medical Devices Implanted Type Area Smart Grid Engineer Device Identifier Shelf Expiration Date Model / Serial / Lot Lens Intraocular Sofport Li61ao 23.0d-08/26/2022 Implanted: 023 (Quantity not on file) Left: Eye BAUSC 02/20/2027 [id number] / [id number] / Lens Intraocular Sofport Li61ao 23.0d-02/10/2023 Implanted: [...] Narrative 03/11/2007 11:54 AM EST Exam Number: [id number] Report Status: Final Type: DIGITAL SCREENING MAMMO [...] Provider Not In - 08/15/2014 Exam Number: [id number] Report Status: Final Type: DIGITAL SCREENING MAMMO [...] Most Recently Relevant to Health Maintenance Insurance [facility] Care Teams Gift Shop Manager Relationship Specialty Start Date End Date Dorene Black MD [address] [facility] [place] [address] PCP - General 12/06/21 Additional Source Comments The information contained in this document represents components of the legal health record. It is not the complete legal health record.[facility]
--- OUTSIDE RECORDS SUMMARY | 2024-11-17 12:08 | XMS_ITS | Patient Health Record ---
Author Organization [facility] Jorge torres [place] Address [address] [place] [address] Care Team Providers Care Foxer Name Role Phone Dorene Black MD Primary Care Provider Neena Randall Unavailable [phone] Allergies No Known Allergies Results Component Value Reference Range Notes HEMOGLOBIN A1C (GLYCOHEMOGLO BIN) Reviewed date:08/26/2024 08:38:30 AM Interpretation: Performing Lab: Notes/Report: HEMOGLOBIN A1C % (HH) 6.8 Reason For Referral No Information Medications Medication SIG (Take, Route, Frequency, Duration) Notes Start Date End Date Status Mounjaro 2.5 MG/0.5ML as directed Subcut aneous once a week Active Aspirin 81 MG 1 tablet Orally Once a day Active Atorvastatin Calcium 10 MG 1/2 tablet Or ally Once a day Active metFORMIN HCl 750 MG 1 tablet with a july l Orally Once a day Active Social History Tobacco Use: Social History [...] Problem Acquired hammer toe of left foot (2995592500080563) Other hammer toe(s) (acquired), left foot (M20.42) Active confirmed Problem Localized, primary osteoarthritis of the ankle and/or foot (525763562) Arthritis of joint of lesser toe, left (M19.072) Active confirmed Vital Signs Blood pressure diastolic 65 mm Hg 08/26/2024 Height 5ft 1in in 08/26/2024 Blood pressure systolic 128 mm Hg 08/26/2024 Weight 195 lbs 08/26/2024 BMI 36.84 kg/m2 08/26/2024 Encounters Encounter Location Date Provider Diagnosis [address] [address] 08/26/2024 Neena Castro Pain in left toe(s) M79.675 ; Other hammer toe(s) (acquired), left foot M20.42 ; Arthritis of joint of lesser toe, left M19.072 and Subluxation of metatarsophalangeal joint of toe, initial encounter S93.149A [address] [address] 08/26/2024 Neena Castro [address] [address] 08/26/2024 Neena Castro Assessments Encounter Date Diagnosis [...] Provider Name:Neena agosto, 11/17/2024 02:00:00 PM, [address] [facility], [place], [address], Insurance Providers Payer Name Payer Address Payer Phone Subscriber Number Group Number Insured Name Patient Relationship to Insured Coverage Start Date Coverage End Date Medicare National Govt Svcs Inc [address] [place] [address] [id number] Francesca Contreras Self - patient is the insured 2 [employer] Blue Shield [address] [place] [address] [phone] [id number] 2 Francesca Contreras Self - patient is the insured Medical (General) History Medical History History ICD Code Back,Hip,and Knee pain Cataracts Diabetic type 2 Measles Chicken pox Bone implants/screws Cholesterol Surgical History Surgery Date(Month/Year) knee replacement 12/14 06/1992,05/2001 catarcts 2022
== END 2024-11-17 11:56 | disposition home or self-care (01) ==
LOC: HO.HMCC 11:13
PROVIDERS: PCP Internal Medicine; Visit Provider Internal Medicine
DX: E78.5 Hyperlipidemia, unspecified (principal); E11.9 Type 2 diabetes mellitus without complications

== ENCOUNTER → 2024-11-17 11:12 | Outpatient (BNVA) | payer MEDICARE, SELFPAY | PROVIDERS: PCP Internal Medicine; Visit Provider Internal Medicine | DX: E78.5 Hyperlipidemia, unspecified (principal); E11.9 Type 2 diabetes mellitus without complications | CPT/HCPCS: 99212 ==

== ENCOUNTER 2025-02-16 09:07 | Outpatient (REF) | payer MEDICARE, SELFPAY ==
--- OUTSIDE RECORDS SUMMARY | 2024-11-10 04:00 | XMS_ITS ---
Author Organization [facility] Address [address] [place] [address] Care Team Providers Care Director Of Dementia Operations Name Role Phone Dorene Black MD Primary Care Provider Neena Randall [phone] Encounters Encounter Location Date Provider Diagnosis [facility] [address] [place] [address] 11/10/2024 Neena Castro Plan Of Treatment Next Appt Details Provider Name:Neena agosto, 04/15/2025 12:45:00 PM, [address] [facility], [address] [place] [address], [place], [address], Progress Notes * Baron CONTRERASOB: (69 yo F)Acc No.[id number]:11/10/2024 Progress Note Patient: Francesca ANSARI Provider: Tonny Castro DPM :1955 A ge:69 Y S ex:Female Date:11/10/2024 Address:[address] [place], [id number] Pcp:Dorene Black MD Subjective: * Chief Complaints: * * Medical History: Objective: * Vitals: Assessment: Plan: * Treatment: * Images: * The named appointment provid er may or may not be the originator of this progress note, and it is not deemed complete until electronically signed by the appointment provider. Sign off status: Pending * Provider: Tonny Castro DPM Date: 0 11/10/2024 Generated for Rocky garrett/Gael/Bernice on: 1 04/18/2024 09:54 AM EST
--- OUTSIDE RECORDS SUMMARY | 2025-02-16 09:54 | XMS_ITS | Patient Health Record ---
Author Organization [facility] Jorge torres [place] Address [address] [address] Care Team Providers Care Evp Strategy Name Role Phone Dorene Black MD Primary Care Provider Neena Randall Unavailable [phone] Allergies No Known Allergies Results Component Value [...] Active Atorvastatin Calcium 10 MG 1/2 tablet Orally Once a day Active metFORMIN HCl 750 MG 1 tablet with a july l Orally Once a day Not-Taking Meloxicam 15 MG Oral; Duration: 30 Days Active Immunizations Vaccine Route Administration Date Status Comme nts Influenza Unknown 12/24/2024 Administered Social History Tobacco Use: Social History Observation [...] Problem Status W/U Status Risk Notes Problem Plantar wart (64672766) Plantar wart (B07.0) Active confirmed Problem Acquired hammer toe of left foot (1267261803619449) Other hammer toe(s) (acquired), left foot (M20.42) Active confirmed Problem Localized, primary osteoarthritis of the ankle and/or foot (202340887) Arthritis of joint of lesser toe, left (M19.072) Active confirmed Vital Signs Blood pressure diastolic 65 mm Hg 01/26/2025 Height 5ft 1in in 01/26/2025 Blood pressure systolic 130 mm Hg 01/26/2025 Weight 185 lbs 01/26/2025 BMI 34.95 kg/m2 01/26/2025 Procedures Procedure Date Ordered Date Performed Result Body Sit e 00700-BJPZ SKIN LESIONS, 2 TO 4 11/17/2024 N/A 93463-Nlom Destruction, 1-14 01/26/2025 N/A Encounters Encounter [facility] Date [facility] [address] [facility]/26/2024 Neena Castro Pain in left toe(s) M79.675 ; Other hammer toe(s) (acquired), left foot M20.42 ; Arthritis of joint of lesser toe, left M19.072 and Subluxation of metatarsophalangeal joint of toe, initial encounter S93.149A [facility] [address] 11/17/2024 Neena Castro Pain in left toe(s) M79.675 ; Other hammer toe(s) (acquired), left foot M20.42 ; Arthritis of joint of lesser toe, left M19.072 ; Subluxation of metatarsophalangeal joint of toe, initial encounter S93.149A and Diabetes type 2, controlled E11.[address] [address] 01/26/2025 Neena Castro Left foot pain M79.672 and Plantar wart B07.0 [facility] [address] [place] [address] 08/26/2024 Neena Castro [facility] [address] 08/26/2024 Neena Castro [facility] [address] 12/29/2024 Neenadaxa Castro Assessments Encounter Date Diagnosis (ICD Code) Assessment Notes Treatment Notes Treatment Clinical Notes Section Notes 08/26/2024 Pain in left toe(s) (ICD-10 - M79.675) 08/26/2024 Other hammer toe(s) (acquired), left foot (ICD-10 - M20.42) 11/17/2024 Pain in left toe(s) (ICD-10 - M79.675) 11/17/2024 Other hammer toe(s) (acquired), left foot (ICD-10 - M20.42) 01/26/2025 Left foot pain (ICD- 10 - M79.672) 11/17/2024 Arthritis of joint o f lesser toe, left (ICD-10 - M19.072) 08/26/2024 Arthritis of joint o f lesser toe, left (ICD-10 - M19.072) 01/26/2025 Plantar wart (ICD-10 - B07.0) 11/17/2024 Subluxation of metatarsophalangeal joint of toe, initial encounter (ICD-10 - S93.149A) 08/26/2024 Subluxation of metatarsophalangeal joint of toe, initial encounter (ICD-10 - S93.149A) 11/17/2024 Diabetes type 2, controlled (ICD-10 - E11.9) Plan Of Treatment Pending Test Test Name Order Date X ray : Foot, left 3V 08/26/2024 85357-Aoqx Destruction, 1-14 01/26/2025 39219-YXFP SKIN LESIONS, 2 TO 4 11/18/19 25 Next Appt Details Provider Name:Neena Fletcher triny, 04/15/2025 12:45:00 PM, [address] [facility], [address], [place], [address], Insurance Providers Payer Name Payer Address Payer Phone Subscriber Number Group Number Insured Name Patient Relationship to Insured Coverage Start Date Coverage End Date Medicare National [employer] [address] [place] [address] [id number] Francesca Contreras Self - patient is the insured 2 [employer] [facility] [address] [place] [address] [phone] [id number] 2 Francesca Contreras Self - patient is the insured Medical (General) History Medical History History ICD Code Back,Hip,and Knee pain Cataracts Diabetic type 2 Measles Chicken pox Bone implants/screws Cholesterol Surgical History Surgery Date(Month/Year) knee replacement 12/14 06/1992,05/2001 catarcts 2022
--- OUTSIDE RECORDS SUMMARY | 2025-02-16 09:54 | XMS_ITS | Clinical Summary ---
Author Organization [facility] Address [address] [place] [id number] Phone Care Team Providers Care Arborist Name Role Phone Dorene Black MD Primary Care Provider [phone] Allergies No known active allergies Medications aspirin [...] 03/11/2007 OSTEOPOROSIS SCREENING INITI AL (ONE-TIME) 2022 INFLUENZA VACCINE (#1) 2024 COVID-19 VACCINE ( - 2024-2 6 season) 2024 RSV VACCINE (1 - 1-dose 75+ series) 02/22/2032 HEPATITIS A VACCINES Aged Out No long er eligible based on patient's age to complete this topic HIB VACCINES Aged Out No longer eligi ble based on patient's age to complete this topic IPV VACCINES Aged Out No longer eligi ble based on patient's age to complete this topic MENINGOCOCCAL VACCINES (ACWY) Aged Out No longer eligible based on patient's age to complete this topic MENINGOCOCCAL VACCINES (B) Aged Out N o longer eligible based on patient's age to complete this topic Medical Devices Implanted Type Area [employer] Operator Supervisor Device Identifier Shelf Expiration Date Model / Serial / Lot Lens Intraocular Sofport [id number] 23.0d-08/26/2022 Implanted: 023 (Quantity not on file) Left: Eye BAUSCH 02/20/2027 [id number] / [id number] / Lens Intraocular Sofport [id number] 23.0d-02/10/2023 Implanted: 023 (Quantity not on file) Right: Eye BAUSCH 10/22/2027 [id number] 23.0D / / Procedures Procedure Name Priority Date/Time Associated Diagnosis Comments BI MAMMOGRAM SCREENING Routine 03/11/2007 11:54 AM EST from Last 3 Months or Most Recently Relevant to Health Maintenance Results * Mammogram Screening (03/11/2007 11:54 AM EST) Anatomical Region Laterality Modality Breast Left, Breast Right, Breast Bilateral Mammography 03/11/2007 11:5 4 AM EST Narrative 03/11/2007 11:54 AM EST Exam Number: [id number] Report Status: Final Type: DIGITAL SCREENING MAMMO [...] END OF IMPRESSION RADIOLOGISTS: SIGNATURES: NICKO MAMMO REFRIGERATION LEAD, MAMMO ALEX JUAREZ MD(R) CHRIS GRIJALVA MD(T) Procedure Note Sys, Conversion Provider Not In - 08/15/2014 Exam Number: [id number] Report Status: Final Type: DIGITAL SCREENING MAMMO [...] END OF IMPRESSION RADIOLOGISTS: SIGNATURES: NICKO MAMMO NICKO, ALEX ANDERSEN MD(R) CHRIS GRIJALVA MD(T) Rosalie Cobos MD [facility] MG EXAMS Final Result from Last 3 Months or Most Recently Relevant to Health Maintenance Insurance [facility] Care Teams Arborist Relationship Specialty Start Date End Date Dorene Black MD [address] [place] [address] PCP - General 12/06/21 Additional Source Comments The information contained in this document represents components of the legal health record. It is not the complete legal health record.[facility]
[2025-02-16 10:57] LABS: MANUAL DIFF FLAG NO
[2025-02-16 11:06] LABS: Hematocrit 44.2 % (37.0-47.0); Hemoglobin 15.2 g/dl (12.0-16.0); Imm Gran Abs Auto 0.02 X10*3/uL (0.00-0.03); Imm Gran Pct Auto 0.3 % (0.0-0.4); Lymphocytes Absolute Auto 2.1 X10*3/uL (1.2-4.9); Mean Corpuscular HGB Conc 34.4 g/dl (31.0-35.0); Mean Corpuscular Hemoglobin 30.1 pg (27.0-33.0); Mean Corpuscular Volume 87.5 fL (80.0-98.0); NRBC Abs Auto 0.000 X10*3/uL (0.0-0.012); NRBC Pct Auto 0.0 /100WBC (0.0-0.2); Platelet Count 237 X10*3/uL (160-400); Red Blood Count 5.05 X10*6/uL (4.20-5.50); White Blood Count 6.2 X10*3/uL (4.8-10.8)
[2025-02-16 12:01] LABS: Alanine Aminotransferase 41 U/L (0-31); Albumin Level 4.4 g/dL (3.5-5.0); Alkaline Phosphatase 94 U/L (39-117); Anion Gap 12 (12-20); Aspartate Amino Transferase 32 U/L (5-31); Blood Urea Nitrogen 24 mg/dL (9-16); Calcium 9.1 mg/dL (8.4-10.2); Carbon Dioxide 25 mmol/L (22-29); Chloride 106 mmol/L (96-108); Cholesterol 187 mg/dL (<200); Estimated Glomerular Filt Rate > 60; HDL Cholesterol 51 mg/dL (>40); Potassium 3.9 mmol/L (3.3-5.1); Sodium 139 mmol/L (135-145); Total Protein 7.3 g/dL (6.5-8.0); Triglycerides 119 mg/dL (<150)
== END 2025-02-16 09:08 | disposition home or self-care (01) ==
LOC: HO.HMGCLDS 09:07
PROVIDERS: PCP Internal Medicine; Visit Provider Internal Medicine
DX: E11.9 Type 2 diabetes mellitus without complications (principal); E78.5 Hyperlipidemia, unspecified
CPT/HCPCS: 36415; 80053; 80061; 83036; 85025